=== PATIENT | female | born 1935 | race Caucasian/White ===

== ENCOUNTER 2020-05-23 12:47 | Emergency (ER) | payer MEDICARE, MEDICAID, SELFPAY ==
--- NOTE | 2020-05-23 | CT_ITS ---
EXAMINATION: CT ABDOMEN AND PELVIS WITH CONTRAST CLINICAL INFORMATION: Abdominal pain. Constipation. Nausea. COMPARISON: CT scan abdomen and pelvis 04/10/2019. TECHNIQUE: Multidetector volumetric images were obtained from the superior aspect of the liver through the pubic symphysis following administration 85 mL of Omnipaque 350 intravenous contrast. Sagittal and coronal reformatted images were obtained on the technologist's workstation. Oral contrast: No. This CT examination was performed using dose optimization techniques as appropriate, variously including the following: *Automated exposure control *Adjustment of mA and/or kV according to patient size (this includes techniques or standardized protocols for targeted exams where dose is matched to indication/reason for exam; i.e. extremities or head) *Use of iterative reconstruction technique DLP: 343 mGy-cm FINDINGS: LUNG BASES: The visualized lung bases are unremarkable. LIVER, GALLBLADDER, AND BILIARY TREE: There is a hepatic cyst in the dome of liver in segment 7 measuring 1.2 cm. This is unchanged since CAT scan 04/10/2019. Vague hypodense lesion in segment 6 right lobe of liver measuring 7 mm axial image 11 series 3. This has suggestion of focal nodular enhancement in the periphery possible hemangioma therefore. This is unchanged since CAT scan 04/10/2019. No suspicious liver lesions. There is no intrahepatic bile duct dilatation. The gallbladder is unremarkable with no evidence of radiopaque gallstones, gallbladder wall thickening, or obvious pericholecystic inflammatory changes. PANCREAS: Unremarkable. SPLEEN: The spleen is enlarged. The spleen measures 20 cm of length. 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 There is distention of the portal vein. ADRENAL GLANDS: Unremarkable. KIDNEYS AND URETERS: Exophytic cyst upper pole of left kidney measuring 3.8 cm. There are several additional small cysts in the cortex of both the right and left kidney. There is no acute abnormality. Normal enhancement of the cortex of both kidneys. No renal or ureteral calculus. No hydronephrosis. BLADDER: Unremarkable. GASTROINTESTINAL TRACT: There are scattered diverticula of the colon. There is no diverticulitis. There is no bowel wall thickening/edema. There is no bowel obstruction. There is a large volume of stool in the colon. The appendix is not visualized. There are surgical clips in the mesentery in the right lower quadrant. The small bowel loops are unremarkable. The stomach is normal. There is no hiatal hernia. ABDOMINAL WALL: No significant hernia is appreciated. LYMPH NODES: Normal. VASCULAR: There is enlargement of the portal vein. 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 No thrombus of the portal vein. Scattered vascular calcifications of the wall of aorta. There is no aneurysm. PELVIC VISCERA: The uterus is absent. There is no adnexal abnormality. OSSEOUS STRUCTURES: Multilevel degenerative spondylosis of the spine. IMPRESSION: 1. Splenomegaly. 2. 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 Enlargement of the portal vein but no thrombus of portal vein. 3. Stable cyst in the dome right lobe of liver segment 7. There is no additional hypodense lesion in right lobe possible hemangioma. 4. Large volume of stool in colon. No bowel obstruction. No acute change of the bowel.
--- NOTE | 2020-05-23 13:22 | ED.ABDPAIN ---
HPI - Abdominal Pain General Chief Complaint: General Medical <COURTNEY Orta Last Filed: 05/23/20 20:12> Stated Complaint: weak,stomach pain <COURTNEY Orta Last Filed: 05/23/20 20:12> Time Seen by Provider: 05/23/20 13:15 <COURTNEY Orta Last Filed: 05/23/20 20:12> Source: patient <COURTNEY Orta Last Filed: 05/23/20 20:12> Mode of arrival: ambulatory <COURTNEY Orta Last Filed: 05/23/20 20:12> Limitations: no limitations <COURTNEY Orta Last Filed: 05/23/20 20:12> History of Present Illness HPI narrative: 84-year-old female presenting ambulatory via triage with with history of essential thrombocytosis, polycythemia vera, cecal volvulus and underwent cencal resection, pancreatitis, anxiety disorder presenting with complaint of lower abdominal pain and lower back pain that has been going on for several days. States she initially developed the pain and discomfort for 5 days ago had slight chills with that so she went to clinic and had a negative COVID test 3 days ago however her symptoms persist of the lower abdominal pain with chills, bladder fullness with pressure and now having back pain with associated nausea in the lower back. States she does have his shoes with constipation intermittently and thought she was constipated so she take a OTC senna after which she had a small bowel movement 2 days ago. <COURTNEY Orta Last Filed: 05/23/20 20:12> MD elicited complaint: abdominal pain <COURTNEY Orta Last Filed: 05/23/20 20:12> Pertinent past history: constipation <COURTNEY Orta Last Filed: 05/23/20 20:12> Pain Consistency: constant <COURTNEY Orta Last Filed: 05/23/20 20:12> Location: suprapubic and other (lower back ) <COURTNEY Orta Last Filed: 05/23/20 20:12> Severity: moderate <COURTNEY Orta Last Filed: 05/23/20 20:12> Pain scale (0-10): 5 <COURTNEY Orta Last Filed: 05/23/20 20:12> Quality: aching <COURTNEY Orta Last Filed: 05/23/20 20:12> Radiation: back <COURTNEY Orta Last Filed: 05/23/20 20:12> Exacerbating factors: nothing <COURTNEY Orta Last Filed: 05/23/20 20:12> Relieving factors: nothing <COURTNEY Orta Last Filed: 05/23/20 20:12> Related Data Home Medications: Home Medications Medication Instructions Recorded Confirmed gabapentin 300 mg capsule 300 mg PO DAILY 05/23/20 hydroxyurea 500 mg capsule 500 mg PO DAILY 05/23/20 ibuprofen 800 mg tablet 800 mg PO TID PRN 05/23/20 linaclotide 145 mcg capsule 145 mcg PO DAILY 05/23/20 abilrh-pgqubwyt-pzabfcc 1 cap PO DAILY 05/23/20 3,000-9,500-15,000 unit capsule,delayed releas paroxetine HCl 10 mg tablet 20 mg PO QAM 05/23/20 sennosides 8.6 mg tablet 17.2 mg PO BEDTIME PRN 05/23/20 trazodone 50 mg tablet 50 mg PO BEDTIME 05/23/20 <COURTNEY Orta Last Filed: 05/23/20 20:12> Allergies/Adverse Reactions: Allergies Allergy/AdvReac Type Severity Reaction Status Date / Time No Known Allergies Allergy Unverified 05/03/20 15:06 <COURTNEY Orta Last Filed: 05/23/20 20:12> Review of Systems Review of Systems Constitutional: No Weight loss, No Fever, + Chills, No Night Sweats, No Fatigue, No Malaise ENT/Mouth: No Hearing loss, No Ear Pain, No Nasal Congestion, No Sinus Pain, No Hoarseness, No sore throat, No Rhinorrhea, No Swallowing Difficulty Eyes: No Eye Pain, No Swelling, No Redness, No Foreign Body, No Discharge, No Vision Changes Cardiovascular: No Chest Pain, No SOB, No Dyspnea on Exertion, No Orthopnea, No Edema, No Palpitations Respiratory: No Cough, No Sputum, No Wheezing, No Smoke Exposure, No Dyspnea Gastrointestinal: + Nausea, No Vomiting, No Diarrhea, + Constipation, + abdominal Pain, No Hematochezia, No Melena Genitourinary: no irregular bleeding, No Dysuria, Has chronic urinary incontinence, No Hematuria,no Urgency, No Flank Pain, No Urinary Flow Changes, No Hesitancy Musculoskeletal: No joint pain, No Myalgias, No Joint Swelling Skin: No Skin Lesions, No rash Neuro: No Weakness, No Numbness, No Paresthesias, No Loss of Consciousness, No Dizziness, No Headache Psych: No Anxiety/Panic, No Depression, No SI/HI/AH/VH, No Social Issues, Heme/Lymph: No Bruising, No Bleeding,No Lymphadenopathy Endocrine: No Polyuria, No Polydipsia, No Temperature Intolerance <Roni Sargent NP - Last Filed: 05/23/20 20:12> Yes all other systems are reviewed and are negative <Roni Sargent NP - Last Filed: 05/23/20 20:12> Physical Exam Vital Signs and I&O and Narrative: Vital Signs and I&O: Vital Signs Temp 99.4 F 05/23/20 13:35 Pulse 90 05/23/20 16:00 Resp 15 05/23/20 16:00 BP 147/65 H 05/23/20 16:00 Pulse Ox 96 05/23/20 16:00 Intake & Output 05/23/20 05/23/20 05/24/20 06:59 18:59 06:59 Intake Total 1000 / 1000 Balance 1000 / 1000 Weight 55.338 kg Intake: Intake, IV Amoun t 1000 / 1000 0.9 % Sodium C hloride 1,000 ml 1000 / 1000 @ 999 mls/hr I VCONT .Q1H1M COUNTS INCLUDE 234 BEDS AT THE [facility] Rx#:[id number] Body Mass Index 18.5 <Roni Sargent NP - Last Filed: 05/23/20 20:12> Vital Signs and I&O: Vital Signs Temp 99.4 F 05/23/20 13:35 Pulse 90 05/23/20 16:00 Resp 15 05/23/20 16:00 BP 147/65 H 05/23/20 16:00 Pulse Ox 96 05/23/20 16:00 Intake & Output 05/23/20 05/23/20 05/24/20 06:59 18:59 06:59 Intake Total 1000 / 1000 Balance 1000 / 1000 Weight 55.338 kg Intake: Intake, IV Amoun t 1000 / 1000 0.9 % Sodium C hloride 1,000 ml 1000 / 1000 @ 999 mls/hr I VCONT .Q1H1M COUNTS INCLUDE 234 BEDS AT THE [facility] Rx#:[id number] Body Mass Index 18.5 <Dheeraj Jacobs DO - Last Filed: 05/24/20 02:24> Const: General: cooperative and healthy appearing; No acute distress or intoxicated appearing <[facility] COURTNEY Sargent - Last Filed: 05/23/20 20:12> Nutritional Appearance: average body habitus <[facility] COURTNEY Sargent - Last Filed: 05/23/20 20:12> Orientation/consciousness: patient oriented x3 <[facility] Arie TIME STUDY ENGINEER - Last Filed: 05/23/20 20:12> HENMT: Head: Yes normal to inspection <[facility] COURTNEY Sargent - Last Filed: 05/23/20 20:12> Ears: hearing grossly normal bilaterally <[facility] COURTNEY Sargent - Last Filed: 05/23/20 20:12> Eyes: General: appearance normal, both eyes and all related structures <[facility] COURTNEY Sargent - Last Filed: 05/23/20 20:12> Visual Gonzáles: normal visual gonzáles by confrontation <[facility] COURTNEY Sargent - Last Filed: 05/23/20 20:12> Neck: Neck: Yes normal visual inspection, No positive Brudzinski's sign, No positive Kernig's sign and No tender <[facility] COURTNEY Sargent - Last Filed: 05/23/20 20:12> Thyroid: Thyroid normal <[facility] COURTNEY Sargent - Last Filed: 05/23/20 20:12> Chest: Chest palpation & inspection: normal inspection of the chest <[facility] COURTNEY Sargent - Last Filed: 05/23/20 20:12> Resp: Effort & Inspection: normal respiratory effort <[facility] COURTNEY Sargent - Last Filed: 05/23/20 20:12> Cardio: Jugular venous distension: no JVD <[facility] COURTNEY Sargent - Last Filed: 05/23/20 20:12> GI: Inspection: Yes normal to inspection <[facility] COURTNEY Sargent - Last Filed: 05/23/20 20:12> Percussion: Yes normal to percussion <Ronigarfield Sargent NP - Last Filed: 05/23/20 20:12> Auscultation: normal bowel sounds <Roni Sargent NP - Last Filed: 05/23/20 20:12> : General: Yes no CVA tenderness <Roni Sargent NP - Last Filed: 05/23/20 20:12> Back/Spine/Pelvis: Back: no CVA tenderness <Roni Sargent NP - Last Filed: 05/23/20 20:12> Skin: General skin exam: no rashes or lesions noted <Roni Sargent NP - Last Filed: 05/23/20 20:12> Neuro: General: patient oriented x3 <Roni Sargent NP - Last Filed: 05/23/20 20:12> Extrem: General: Yes normal to inspection <Roni Sargent NP - Last Filed: 05/23/20 20:12> Course Course Course Narrative: labs overall stable. CT findings consistent with constipation. No findings of obstruction. Requesting to be medicated here prior to going home will give her magnesium citrate 300 p.o. as well as Fleet enema. <Roni Sargent NP - Last Filed: 05/23/20 20:12> Reevaluation(s) Reevaluation #1: The nurse informed me the patient eloped prior to her discharge. <Roni Sargent NP - Last Filed: 05/23/20 20:12> MDM - Abdominal Pain Differential Diagnosis Differential diagnosis: Likely abdominal pain, constipation, diverticulitis and small bowel obstruction; Unlikely aortic dissection, acute appendicitis, bowel perforation, calculus of kidney, endometriosis, gastroenteritis, gastritis, mesenteric ischemia, ovarian cyst, pancreatitis, peptic ulcer disease and renal colic <Roni Sargent NP - Last Filed: 05/23/20 20:12> Medical Records Attestation: I reviewed the patient's medical records. <COURTNEY Orta Last Filed: 05/23/20 20:12> Lab Data Attestation: I reviewed the patient's lab results. <COURTNEY Orta Last Filed: 05/23/20 20:12> Result diagrams: : 05/23/20 14:16 05/23/20 14:16 <Roni Sargent NP - Last Filed: 05/23/20 20:12> Labs: Lab Results 05/23/20 05/23/20 05/23/20 Range/Units 14:16 14:16 14:16 WBC 23.0 H (4.8-10.8) X10*3/uL RBC 5.47 (4.20-5.50) X10*6/uL Hgb 13.0 (12.0-16.0) g/dl Hct 43.6 (37-47) % MCV 79.7 L (80-98) fL MCH 23.8 L (27.0-33.0) pg MCHC 29.8 L (31.0-35.0) g/dl RDW 19.9 H (11.0-16.0) % Plt Count 323 (160-400) X10*3/uL Immature Gran % (Auto) 0.9 H (0.0-0.4) % Neut % (Auto) 91.9 H (45-73) % Lymph % (Auto) 3.7 L (20-40) % Dane % (Auto) 2.0 (2-11) % Eos % (Auto) 0.6 (0-4) % Baso % (Auto) 0.9 (0-2) % Neut # (Auto) 21.2 H (2.0-8.3) X10*3/uL Lymph # (Auto) 0.9 L (1.2-4.9) X10*3/uL Dane # (Auto) 0.5 (0.1-1.2) X10*3/uL Eos # (Auto) 0.1 (0.0-0.4) X10*3/uL Baso # (Auto) 0.2 (0.0-0.2) X10*3/uL Abs Immat Gran (auto) 0.20 H (0.00-0.03) X10*3/uL Absolute Nucleated RBC 0.000 (0.0-0.012) X10*3/uL Nucleated RBC % (auto) 0.0 (0.0-0.2) /100WBC Smear Tech's Comments VERIFIED Sodium 138 (135-145) mmol/L Potassium 4.0 (3.3-5.1) mmol/l Chloride 101 (96-108) mmol/L Carbon Dioxide 30 H (22-29) mmol/L Anion Gap 11 L (12-20) BUN 16 (9-16) mg/dL Creatinine 0.66 (0.5-1.4) mg/dL Estim Creat Clear Calc 56.4 Estimated GFR > 60 Random Glucose 130 H (60-115) mg/dL Calcium 8.7 (8.4-10.2) mg/dL Total Bilirubin 0.6 (0.0-1.0) mg/dL Direct Bilirubin 0.3 (0.0-0.5) mg/dL AST 17 (5-31) U/L ALT 11 (0-31) U/L Alkaline Phosphatase 77 (39-117) U/L Total Protein 6.3 L (6.5-8.0) g/dL Albumin 4.0 (3.5-5.0) g/dL Lipase 19 (8-78) U/L Urine Color YELLOW Urine Appearance CLEAR Urine pH 6.0 (5.0-8.0) Ur Specific Simpson <= 1.005 (1.005-1.025) Urine Protein NEG (NEG-TRACE) MG/DL Urine Glucose (UA) NEG (NEG) MG/DL Urine Ketones NEG (NEG) MG/DL Urine Blood TRACE (NEG) Urine Nitrite NEG (NEG) Ur Leukocyte Esterase NEG (NEG) Urine RBC 0-2 (0) /HPF Urine WBC 0-2 (0-4) /HPF Ur Squamous Epith Cells TRACE /LPF Ur Renal Epithelial Cell TRACE /LPF Urine Bacteria NONE /LPF <Roni Sargent NP - Last Filed: 05/23/20 20:12> Lab Results 05/23/20 05/23/20 05/23/20 Range/Units 14:16 14:16 14:16 WBC 23.0 H (4.8-10.8) X10*3/uL RBC 5.47 (4.20-5.50) X10*6/uL Hgb 13.0 (12.0-16.0) g/dl Hct 43.6 (37-47) % MCV 79.7 L (80-98) fL MCH 23.8 L (27.0-33.0) pg MCHC 29.8 L (31.0-35.0) g/dl RDW 19.9 H (11.0-16.0) % Plt Count 323 (160-400) X10*3/uL Immature Gran % (Auto) 0.9 H (0.0-0.4) % Neut % (Auto) 91.9 H (45-73) % Lymph % (Auto) 3.7 L (20-40) % Dane % (Auto) 2.0 (2-11) % Eos % (Auto) 0.6 (0-4) % Baso % (Auto) 0.9 (0-2) % Neut # (Auto) 21.2 H (2.0-8.3) X10*3/uL Lymph # (Auto) 0.9 L (1.2-4.9) X10*3/uL Dane # (Auto) 0.5 (0.1-1.2) X10*3/uL Eos # (Auto) 0.1 (0.0-0.4) X10*3/uL Baso # (Auto) 0.2 (0.0-0.2) X10*3/uL Abs Immat Gran (auto) 0.20 H (0.00-0.03) X10*3/uL Absolute Nucleated RBC 0.000 (0.0-0.012) X10*3/uL Nucleated RBC % (auto) 0.0 (0.0-0.2) /100WBC Smear Tech's Comments VERIFIED Sodium 138 (135-145) mmol/L Potassium 4.0 (3.3-5.1) mmol/l Chloride 101 (96-108) mmol/L Carbon Dioxide 30 H (22-29) mmol/L Anion Gap 11 L (12-20) BUN 16 (9-16) mg/dL Creatinine 0.66 (0.5-1.4) mg/dL Estim Creat Clear Calc 56.4 Estimated GFR > 60 Random Glucose 130 H (60-115) mg/dL Calcium 8.7 (8.4-10.2) mg/dL Total Bilirubin 0.6 (0.0-1.0) mg/dL Direct Bilirubin 0.3 (0.0-0.5) mg/dL AST 17 (5-31) U/L ALT 11 (0-31) U/L Alkaline Phosphatase 77 (39-117) U/L Total Protein 6.3 L (6.5-8.0) g/dL Albumin 4.0 (3.5-5.0) g/dL Lipase 19 (8-78) U/L Urine Color YELLOW Urine Appearance CLEAR Urine pH 6.0 (5.0-8.0) Ur Specific Simpson <= 1.005 (1.005-1.025) Urine Protein NEG (NEG-TRACE) MG/DL Urine Glucose (UA) NEG (NEG) MG/DL Urine Ketones NEG (NEG) MG/DL Urine Blood TRACE (NEG) Urine Nitrite NEG (NEG) Ur Leukocyte Esterase NEG (NEG) Urine RBC 0-2 (0) /HPF Urine WBC 0-2 (0-4) /HPF Ur Squamous Epith Cells TRACE /LPF Ur Renal Epithelial Cell TRACE /LPF Urine Bacteria NONE /LPF <Dheeraj Jacobs DO - Last Filed: 05/24/20 02:24> Discharge Plan Discharge Clinical Impression: Abdominal pain Qualifiers: Abdominal location: lower abdomen, unspecified Qualified Code(s): R10.30 - Lower abdominal pain, unspecified Constipation Qualifiers: Constipation type: unspecified constipation type Qualified Code(s): K59.00 - Constipation, unspecified <Roni Sargent NP - Last Filed: 05/23/20 20:12> Patient Disposition: Home, Self-Care <Roni Sargent NP - Last Filed: 05/23/20 20:12> Instructions: Constipation (ED) <Roni Sargent NP - Last Filed: 05/23/20 20:12> Discharge Date/Time: 05/23/20 18:00 <Roni Sargent NP - Last Filed: 05/23/20 20:12> [facility] Past Medical History Attestation statement: The following information was validated with the patient. <Roni Sargent NP - Last Filed: 05/23/20 20:12> Social History Social History: Social History Alcohol intake: never Smoking Status: Never smoker Use of substances other than those prescribed or required for medical reasons: No Advance Directives: No Advance Directives Information Provided: Yes <Roni Sargent NP - Last Filed: 05/23/20 20:12>
[2020-05-23 13:35] VITALS: BP 139/70; PULSE 90; RESP 18; TEMP 37.4; BMI 18.5
[2020-05-23] MEDS: 0.9 % Sodium Chloride 1,000 ML 999 ML IVCONT (14:15)
[2020-05-23 14:22] VITALS: BP 131/79; PULSE 87; RESP 16; O2SAT 95
[2020-05-23 14:31] LABS: Basophils Percent Auto 0.9 % (0-2); Imm Gran Pct Auto 0.9 % (0.0-0.4); MANUAL DIFF FLAG SCAN; SCAN SMEAR FLAG 1
[2020-05-23 14:32] LABS: Basophils Absolute Auto 0.2 X10*3/uL (0.0-0.2); Eosinophils Absolute Auto 0.1 X10*3/uL (0.0-0.4); Eosinophils Percent Auto 0.6 % (0-4); Hematocrit 43.6 % (37-47); Lymphocytes Absolute Auto 0.9 X10*3/uL (1.2-4.9); Lymphocytes Percent Auto 3.7 % (20-40); Mean Corpuscular HGB Conc 29.8 g/dl (31.0-35.0); Mean Corpuscular Hemoglobin 23.8 pg (27.0-33.0); Mean Corpuscular Volume 79.7 fL (80-98); Monocytes Absolute Auto 0.5 X10*3/uL (0.1-1.2); Neutrophils Absolute Auto 21.2 X10*3/uL (2.0-8.3); Neutrophils Percent Auto 91.9 % (45-73); Platelet Count 323 X10*3/uL (160-400); Red Blood Count 5.47 X10*6/uL (4.20-5.50); Red Cell Distribution Width 19.9 % (11.0-16.0)
[2020-05-23 14:33] LABS: Glucose Urine UA NEG (NEG); Leukocyte Esterase Urine NEG (NEG); Nitrite Urine NEG (NEG); Specific Gravity - Urine <= 1.005 (1.005-1.025); Urine Blood TRACE (NEG); Urine Ketones NEG (NEG); Urine Protein NEG (NEG-TRACE)
[2020-05-23 14:34] LABS: Appearance Urine CLEAR; Color Urine YELLOW; PLT ABN DIST 1
[2020-05-23 14:55] LABS: RBC Urine 0-2 /HPF (0); Renal Epithelial Cells Urine TRACE /LPF; Squamous Epithelial Cell Urine TRACE /LPF; WBC Urine 0-2 /HPF (0-4)
[2020-05-23 14:57] LABS: SLIDE REVIEW VERIFIED
[2020-05-23 15:03] LABS: Alanine Aminotransferase 11 U/L (0-31); Alkaline Phosphatase 77 U/L (39-117); Anion Gap 11 (12-20); Aspartate Amino Transferase 17 U/L (5-31); Bilirubin Direct 0.3 mg/dL (0.0-0.5); Bilirubin Total 0.6 mg/dL (0.0-1.0); Blood Urea Nitrogen 16 mg/dL (9-16); Calcium 8.7 mg/dL (8.4-10.2); Carbon Dioxide 30 mmol/L (22-29); Chloride 101 mmol/L (96-108); Creatinine Clr Calc Pharmacy 56.4; Estimated Glomerular Filt Rate > 60; Glucose Random 130 mg/dL (60-115); Lipase 19 U/L (8-78); Sodium 138 mmol/L (135-145); Total Protein 6.3 g/dL (6.5-8.0)
[2020-05-23 16:00] VITALS: BP 147/65; PULSE 90; RESP 15; O2SAT 96
[2020-05-23] MEDS: Magnesium Citrate 300 ML SOLUTION PO (16:54)
[2020-05-23] MEDS: Mineral OiL enema 133 ML ENEMA PR (17:22)
--- NOTE | 2020-05-23 17:40 | PC.NURSE ---
PATIENT ANXIOUS FOR DISCHARGE. PATIENT PACING AND AWAITING HER D/C PAPERS
== END 2020-05-23 18:00 | disposition home or self-care (01) ==
PROVIDERS: Nurse Practitioner Primary Care; Emergency Provider Emergency Medicine; PCP Internal Medicine
DX: K59.00 Constipation, unspecified (principal); R10.30 Lower abdominal pain, unspecified
CPT/HCPCS: 36415; 74177; 80048; 80076; 81001; 83690; 85025; 96360; 99284

== ENCOUNTER 2020-06-25 08:06 | Outpatient (REF) | payer MEDICARE, MEDICAID, SELFPAY | END 2020-06-25 08:07 | disposition home or self-care (01) | LOC: HO.BBR 08:06 | PROVIDERS: PCP Hospitalist; Visit Provider Internal Medicine Medical Oncology | DX: D45 Polycythemia vera (principal) | CPT/HCPCS: 36415; 85018; 99195 ==

== ENCOUNTER 2020-09-11 09:27 | Outpatient (REF) | payer MEDICARE, MEDICAID, SELFPAY ==
[2020-09-11 10:16] LABS: Hematocrit 43.4 % (37-47); Hemoglobin 12.5 g/dl (12.0-16.0); Mean Corpuscular HGB Conc 28.8 g/dl (31.0-35.0); Mean Corpuscular Hemoglobin 23.8 pg (27.0-33.0); Mean Corpuscular Volume 82.7 fL (80-98); NRBC Pct Auto 0.1 /100WBC (0.0-0.2); Platelet Count 324 X10*3/uL (160-400); Red Blood Count 5.25 X10*6/uL (4.20-5.50); Red Cell Distribution Width 22.1 % (11.0-16.0); White Blood Count 19.6 X10*3/uL (4.8-10.8)
[2020-09-11 10:36] LABS: Alanine Aminotransferase 10 U/L (0-31); Albumin Level 4.1 g/dL (3.5-5.0); Alkaline Phosphatase 80 U/L (39-117); Anion Gap 13 (12-20); Aspartate Amino Transferase 19 U/L (5-31); Bilirubin Direct 0.3 mg/dL (0.0-0.5); Bilirubin Total 0.8 mg/dL (0.0-1.0); Blood Urea Nitrogen 15 mg/dL (9-16); Calcium 8.5 mg/dL (8.4-10.2); Carbon Dioxide 30 mmol/L (22-29); Chloride 101 mmol/L (96-108); Estimated Glomerular Filt Rate > 60; Glucose Random 79 mg/dL (60-115); Potassium 4.5 mmol/l (3.3-5.1); Sodium 139 mmol/L (135-145); Total Protein 6.4 g/dL (6.5-8.0)
[2020-09-11 10:57] LABS: Thyroid Stimulating Hormone 2.57 uIU/mL (0.32-4.0)
[2020-09-11 11:15] LABS: Folate 13.3 ng/mL (> or = 4.0); Vitamin B12 1484 pg/mL (200-900)
[2020-09-15 12:57] LABS: Vitamin D 25-OH, D2 <4 ng/mL; Vitamin D 25-OH, D3 39 ng/mL; Vitamin D 25-OH, Total 39 ng/mL (30-100)
== END 2020-09-11 09:28 | disposition home or self-care (01) ==
LOC: HO.LAB 09:27
PROVIDERS: PCP Internal Medicine; Visit Provider Internal Medicine
DX: D47.3 Essential (hemorrhagic) thrombocythemia (principal); R32 Unspecified urinary incontinence; J21.9 Acute bronchiolitis, unspecified
CPT/HCPCS: 36415; 80048; 80076; 82306; 82607; 82746; 84443; 85027

== ENCOUNTER 2020-09-17 07:50 | Outpatient (REF) | payer MEDICARE, MEDICAID, SELFPAY | END 2020-09-17 07:51 | disposition home or self-care (01) | LOC: HO.BBR 07:50 | PROVIDERS: Visit Provider Internal Medicine Medical Oncology | DX: D45 Polycythemia vera (principal) | CPT/HCPCS: 36415; 85018 ==

== ENCOUNTER → 2020-10-08 07:51 | Outpatient (BNV) | payer MEDICARE, MEDICAID, SELFPAY | PROVIDERS: PCP Internal Medicine; Visit Provider Internal Medicine Medical Oncology | DX: D47.3 Essential (hemorrhagic) thrombocythemia (principal) | CPT/HCPCS: 99213; 99214 ==

== ENCOUNTER 2020-12-17 08:18 | Outpatient (REF) | payer MEDICARE, MEDICAID, SELFPAY | END 2020-12-17 08:19 | disposition home or self-care (01) | LOC: HO.BBR 08:18 | PROVIDERS: Visit Provider Internal Medicine Medical Oncology | DX: D45 Polycythemia vera (principal) | CPT/HCPCS: 85014; 85018; 99195 ==

== ENCOUNTER 2021-03-19 08:02 | Outpatient (REF) | payer MEDICARE, MEDICAID, SELFPAY | END 2021-03-19 08:03 | disposition home or self-care (01) | LOC: HO.BBR 08:02 | PROVIDERS: PCP Internal Medicine; Visit Provider Internal Medicine Medical Oncology | DX: D45 Polycythemia vera (principal) | CPT/HCPCS: 85014; 85018; 99195 ==

== ENCOUNTER 2021-06-05 02:04 | Emergency (ER) | payer MEDICARE, MEDICAID, SELFPAY ==
[2021-06-05 02:18] VITALS: BP 152/48; PULSE 89; RESP 16; TEMP 36.4; O2SAT 96; BMI 18.2
--- NOTE | 2021-06-05 02:38 | ED_ITS ---
HPI - Female Genitourinary General Chief complaint: Urogenital-Female Stated complaint: UTI Time Seen by Provider: 06/05/21 02:32 Source: patient Mode of arrival: ambulatory Limitations: no limitations History of Present Illness HPI Narrative: Patient comes emergency room complaining of dysuria. Patient states this started approximately 5 days ago. Patient has history of chronic weakness, however over the last 5 days, the weakness has gradually been getting worse. Patient lives at home with her grandson. Patient complaining chronic lower back pain, no new pain, no flank pain, no fever or chills. Related Data Home Medications Medication Instructions Recorded Confirmed hydroxyurea 500 mg capsule 500 mg PO DAILY 05/23/20 05/14/21 Previous Rx's Medication Instructions Recorded hydrocortisone 2.5 % topical cream 1 appl TOPICAL BID PRN #20 g 09/11/20 trazodone 50 mg tablet 50 mg PO BEDTIME PRN #90 tab 12/06/20 paroxetine HCl 10 mg tablet 20 mg PO QAM #180 tab 03/07/21 hydroxyurea 500 mg capsule (Hydrea) 500 mg PO BID #120 cap 05/14/21 hydroxyurea 500 mg capsule (Hydrea) 500 mg PO BID #180 cap 05/14/21 cefuroxime axetil 250 mg tablet 250 mg PO BID #13 tab 06/05/21 Allergies Allergy/AdvReac Type Severity Reaction Status Date / Time No Known Allergies Allergy Verified 05/14/21 08:45 Review of Systems Review of Systems: Constitutional : No Weight loss, No Fever, No Chills, No Night Sweats, No Fatigue, No Malaise ENT/Mouth : No Hearing loss, No Ear Pain, No Nasal Congestion, No Sinus Pain, No Hoarseness, No sore throat, No Rhinorrhea, No Swallowing Difficulty Eyes: No Eye Pain, No Swelling, No Redness, No Foreign Body, No Discharge, No Vision Changes Cardiovascular : No Chest Pain, No SOB, No Dyspnea on Exertion, No Orthopnea, No Edema, No Palpitations Respiratory : No Cough, No Sputum, No Wheezing, No Smoke Exposure, No Dyspnea Gastrointestinal : No Nausea, No Vomiting, No Diarrhea, No Constipation, No abdominal Pain, No Hematochezia, No Melena Genitourinary complaining of Dysuria, complaining of Urinary Frequency, No Hematuria, Chronic Urinary Incontinence, No Urgency, No Flank Pain, No Urinary Flow Changes, No Hesitancy Musculoskeletal : No joint pain, No Myalgias, No Joint Swelling Skin : No Skin Lesions, No rash Neuro : No Weakness, No Numbness, No Paresthesias, No Loss of Consciousness, No Dizziness, No Headache Psych : No Anxiety/Panic, No Depression, No SI/HI/AH/VH, No Social Issues, Heme/Lymph: No Bruising, No Bleeding,No Lymphadenopathy Endocrine : No Polyuria, No Polydipsia, No Temperature Intolerance [facility] Past Medical History Medical History 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 Mother No problems noted. Son Addiction to drug Social History Social History (Updated 05/14/21 @ 08:45 by Amanda Zhong) Alcohol intake: never Patient Tobacco Use Status: Never used Tobacco Use of substances other than those prescribed or required for medical reasons: No Advance Directives: No Advance Directives Information Provided: No Physical Exam 2 Vital Signs: Vital Signs: Last Vital Signs Temp 98.0 F 06/05/21 03:36 Pulse 81 06/05/21 03:36 Resp 18 06/05/21 03:36 BP 126/64 06/05/21 03:36 Pulse Ox 98 06/05/21 03:36 Body Mass Index 18.2 Const: Other: Appearance: Alert. Oriented X3. No acute distress. Eyes: Pupils equal, round and reactive to light. ENT: Pharynx normal. Neck: Normal inspection. Neck supple. No lymph nodes noted. No crepitus CVS: Normal heart rate and rhythm. Pulses normal. Normal S1 and S2 Respiratory: No respiratory distress. Breath sounds normal. No Wheezing. No rales Abdomen: Soft and nontender. No rigidity. No distention. Back: No pain to palpation over thoracic/lumbar spine, no paraspinal muscle pain tenderness, no flank pain/CVA tenderness Skin: Skin warm and dry. Normal skin color. Normal skin turgor. Extremities: No lower extremity edema. No lower extremity edema. No Lacerations. No Rash Neuro: Oriented X 3. No motor deficit. No sensory deficit. Moving all extermities. No slurred speech. Course Course Course Narrative: Patient has a positive UTI. Patient was given 1 g of IM ceftriaxone. I discussed with the patient that if she is weak, she should likely be staying in the hospital for treatment for asymptomatic UTI. Patient declined, patient states she feels strong enough to go home. She will be staying with her grandson. Patient's white blood cell count is chronically elevated, sees Dr. Durham. Lactic acid within normal limits, blood pressure normal, no fever, no flank pain, pyelonephritis not suspected, sepsis no suspected MDM - Female Genitourinary Lab Data Result diagrams: 06/05/21 03:00 06/05/21 03:00 Labs: Lab Results 06/05/21 06/05/21 06/05/21 Range/Units 03:00 03:00 03:00 WBC 18.8 H (4.8-10.8) X10*3/uL RBC 5.16 (4.20-5.50) X10*6/uL Hgb 12.6 (12.0-16.0) g/dl Hct 41.1 (37-47) % MCV 79.7 L (80-98) fL MCH 24.4 L (27.0-33.0) pg MCHC 30.7 L (31.0-35.0) g/dl RDW 21.7 H (11.0-16.0) % Plt Count 148 L D (160-400) X10*3/uL MPV Not Reportable Immature Gran % (Auto) 4.6 H (0.0-0.4) % Neut % (Auto) 86.3 H (45-73) % Lymph % (Auto) 4.4 L (20-40) % [place] % (Auto) 2.3 (2-11) % Eos % (Auto) 1.3 (0-4) % Baso % (Auto) 1.1 (0-2) % Lymph # (Auto) 0.8 L (1.2-4.9) X10*3/uL [place] # (Auto) 0.4 (0.1-1.2) X10*3/uL Eos # (Auto) 0.3 (0.0-0.4) X10*3/uL Baso # (Auto) 0.2 (0.0-0.2) X10*3/uL Abs Immat Gran (auto) 0.86 H (0.00-0.03) X10*3/uL Absolute Neuts (auto) 16.2 H (2.0-8.3) X10*3/uL Absolute Nucleated RBC 0.030 H (0.0-0.012) X10*3/uL Nucleated RBC % (auto) 0.2 (0.0-0.2) /100WBC Smear Tech's Comments VERIFIED Sodium 139 (135-145) mmol/L Potassium 4.2 (3.3-5.1) mmol/L Chloride 106 (96-108) mmol/L Carbon Dioxide 27 (22-29) mmol/L Anion Gap 10 L (12-20) BUN 15 (9-16) mg/dL Creatinine 0.64 (0.5-1.4) mg/dL Estim Creat Clear Calc 56.2 Estimated GFR > 60 Random Glucose 86 (60-115) mg/dL Lactic Acid 1.3 (0.5-2.0) mmol/L Calcium 8.6 (8.4-10.2) mg/dL Total Bilirubin 0.7 (0.0-1.0) mg/dL Direct Bilirubin 0.3 (0.0-0.5) mg/dL AST 16 (5-31) U/L ALT 8 (0-31) U/L Alkaline Phosphatase 72 D (39-117) U/L Total Protein 5.9 L (6.5-8.0) g/dL Albumin 3.6 (3.5-5.0) g/dL Urine Color Urine Appearance Urine pH (5.0-8.0) Ur Specific [place] (1.005-1.025) Urine Protein (NEG-TRACE) MG/DL Urine Glucose (UA) (NEG) MG/DL Urine Ketones (NEG) MG/DL Urine Blood (NEG) Urine Nitrite (NEG) Ur Leukocyte Esterase (NEG) Urine RBC (0) /HPF Urine WBC (0-4) /HPF Ur Squamous Epith Cells /LPF Urine Bacteria /LPF Urine Mucus /LPF 06/05/21 Range/Units 03:40 WBC (4.8-10.8) X10*3/uL RBC (4.20-5.50) X10*6/uL Hgb (12.0-16.0) g/dl Hct (37-47) % MCV (80-98) fL MCH (27.0-33.0) pg MCHC (31.0-35.0) g/dl RDW (11.0-16.0) % Plt Count (160-400) X10*3/uL MPV Immature Gran % (Auto) (0.0-0.4) % Neut % (Auto) (45-73) % Lymph % (Auto) (20-40) % [place] % (Auto) (2-11) % Eos % (Auto) (0-4) % Baso % (Auto) (0-2) % Lymph # (Auto) (1.2-4.9) X10*3/uL [place] # (Auto) (0.1-1.2) X10*3/uL Eos # (Auto) (0.0-0.4) X10*3/uL Baso # (Auto) (0.0-0.2) X10*3/uL Abs Immat Gran (auto) (0.00-0.03) X10*3/uL Absolute Neuts (auto) (2.0-8.3) X10*3/uL Absolute Nucleated RBC (0.0-0.012) X10*3/uL Nucleated RBC % (auto) (0.0-0.2) /100WBC Smear Tech's Comments Sodium (135-145) mmol/L Potassium (3.3-5.1) mmol/L Chloride (96-108) mmol/L Carbon Dioxide (22-29) mmol/L Anion Gap (12-20) BUN (9-16) mg/dL Creatinine (0.5-1.4) mg/dL Estim Creat Clear Calc Estimated GFR Random Glucose (60-115) mg/dL Lactic Acid (0.5-2.0) mmol/L Calcium (8.4-10.2) mg/dL Total Bilirubin (0.0-1.0) mg/dL Direct Bilirubin (0.0-0.5) mg/dL AST (5-31) U/L ALT (0-31) U/L Alkaline Phosphatase (39-117) U/L Total Protein (6.5-8.0) g/dL Albumin (3.5-5.0) g/dL Urine Color YELLOW Urine Appearance HAZY Urine pH 6.0 (5.0-8.0) Ur Specific [place] 1.025 (1.005-1.025) Urine Protein TRACE (NEG-TRACE) MG/DL Urine Glucose (UA) NEG (NEG) MG/DL Urine Ketones NEG (NEG) MG/DL Urine Blood TRACE (NEG) Urine Nitrite POS H (NEG) Ur Leukocyte Esterase 3+ H (NEG) Urine RBC 5-9 H (0) /HPF Urine WBC 50-75 H (0-4) /HPF Ur Squamous Epith Cells 1+ /LPF Urine Bacteria 3+ /LPF Urine Mucus 2+ /LPF Discharge Plan Discharge Clinical Impression: Acute UTI Patient Disposition: Home, Self-Care Instructions: Urinary Tract Infection in Older Adults (ED) Additional Instructions: Please follow-up with your primary care physician tomorrow. If you have any worsening or new symptoms, please return to the emergency room or call 911 Prescriptions: New cefuroxime axetil 250 mg tablet 250 mg PO BID Qty: 13 RF: 0 No Action trazodone 50 mg tablet 50 mg PO BEDTIME PRN (Reason: Sleep) Qty: 90 RF: 1 paroxetine HCl 10 mg tablet 20 mg PO QAM Qty: 180 RF: 0 hydroxyurea [Hydrea] 500 mg Capsule 500 mg PO BID Qty: 180 RF: 4 hydroxyurea [Hydrea] 500 mg Capsule 500 mg PO BID Qty: 120 RF: 4 hydroxyurea 500 mg capsule 500 mg PO DAILY RF: 0 hydrocortisone 2.5 % cream 1 appl topical BID PRN (Reason: skin irritation) Qty: 20 RF: 0
--- NOTE | 2021-06-05 02:45 | PC.NURSE ---
pt complaining of lower abd and flank pain. Also report pain during urination. pt a&O, no sob or chest pain.
[2021-06-05 03:12] LABS: Hematocrit 41.1 % (37-47); Hemoglobin 12.6 g/dl (12.0-16.0); MANUAL DIFF FLAG SCAN; Mean Corpuscular HGB Conc 30.7 g/dl (31.0-35.0); Mean Corpuscular Hemoglobin 24.4 pg (27.0-33.0); Mean Corpuscular Volume 79.7 fL (80-98); Red Blood Count 5.16 X10*6/uL (4.20-5.50); SCAN SMEAR FLAG 1
[2021-06-05 03:14] LABS: Basophils Absolute Auto 0.2 X10*3/uL (0.0-0.2); Basophils Percent Auto 1.1 % (0-2); Eosinophils Absolute Auto 0.3 X10*3/uL (0.0-0.4); Eosinophils Percent Auto 1.3 % (0-4); Imm Gran Abs Auto 0.86 X10*3/uL (0.00-0.03); Imm Gran Pct Auto 4.6 % (0.0-0.4); Lymphocytes Absolute Auto 0.8 X10*3/uL (1.2-4.9); Lymphocytes Percent Auto 4.4 % (20-40); Monocytes Absolute Auto 0.4 X10*3/uL (0.1-1.2); Monocytes Percent Auto 2.3 % (2-11); NRBC Pct Auto 0.2 /100WBC (0.0-0.2); Neutrophils Absolute Auto 16.2 X10*3/uL (2.0-8.3); Neutrophils Percent Auto 86.3 % (45-73); Platelet Count 148 X10*3/uL (160-400); Red Cell Distribution Width 21.7 % (11.0-16.0); White Blood Count 18.8 X10*3/uL (4.8-10.8)
[2021-06-05 03:19] LABS: Lactic Acid 1.3 mmol/L (0.5-2.0)
[2021-06-05 03:29] LABS: Alanine Aminotransferase 8 U/L (0-31); Albumin Level 3.6 g/dL (3.5-5.0); Alkaline Phosphatase 72 U/L (39-117); Anion Gap 10 (12-20); Aspartate Amino Transferase 16 U/L (5-31); Bilirubin Direct 0.3 mg/dL (0.0-0.5); Bilirubin Total 0.7 mg/dL (0.0-1.0); Blood Urea Nitrogen 15 mg/dL (9-16); Calcium 8.6 mg/dL (8.4-10.2); Carbon Dioxide 27 mmol/L (22-29); Chloride 106 mmol/L (96-108); Creatinine Clr Calc Pharmacy 56.2; Estimated Glomerular Filt Rate > 60; Glucose Random 86 mg/dL (60-115); Potassium 4.2 mmol/L (3.3-5.1); Sodium 139 mmol/L (135-145); Total Protein 5.9 g/dL (6.5-8.0)
[2021-06-05 03:36] VITALS: BP 126/64; PULSE 81; RESP 18; TEMP 36.7; O2SAT 98
[2021-06-05 03:44] LABS: Appearance Urine HAZY; Color Urine YELLOW; Glucose Urine UA NEG (NEG); Leukocyte Esterase Urine 3+ (NEG); Nitrite Urine POS (NEG); Specific Gravity - Urine 1.025 (1.005-1.025); UACC Culture Trigger YES; Urine Blood TRACE (NEG); Urine Ketones NEG (NEG); Urine Protein TRACE MG/DL (NEG-TRACE)
--- NOTE | 2021-06-05 03:45 | PC.NURSE ---
PT AMBULATED TO BATHROOM WITH ONE ASSIST. URINE SAMPLE SENT TO LAB, VITALS DONE.
[2021-06-05 03:50] LABS: PLT ABN DIST 1; SLIDE REVIEW VERIFIED
[2021-06-05 03:54] LABS: Bacteria Urine 3+ /LPF; Mucus Urine 2+ /LPF; Squamous Epithelial Cell Urine 1+ /LPF; WBC Urine 50-75 /HPF (0-4)
[2021-06-05] MEDS: cefTRIAXone sodium 1 GM, Lidocaine HCl 1 % MPF 2.1 ML IM (04:43)
[2021-06-05 04:53] VITALS: BP 143/66; PULSE 87; RESP 16; O2SAT 97
== END 2021-06-05 04:59 | disposition home or self-care (01) ==
PROVIDERS: Emergency Provider Emergency Medicine; PCP Internal Medicine
DX: N39.0 Urinary tract infection, site not specified (principal)
CPT/HCPCS: 36415; 80048; 80076; 81001; 83605; 85025; 87040; 87086; 87088; 87186; 96372; 99284; J0696

== ENCOUNTER 2021-06-19 08:02 | Outpatient (REF) | payer MEDICARE, MEDICAID, SELFPAY | END 2021-06-19 08:03 | disposition home or self-care (01) | LOC: HO.BBR 08:02 | PROVIDERS: PCP Internal Medicine; Visit Provider Internal Medicine Medical Oncology | DX: D45 Polycythemia vera (principal) | CPT/HCPCS: 85014; 85018; 99195 ==

== ENCOUNTER 2021-09-19 08:03 | Outpatient (REF) | payer MEDICARE, MEDICAID, SELFPAY | END 2021-09-19 08:04 | disposition home or self-care (01) | LOC: HO.BBR 08:03 | PROVIDERS: Visit Provider Internal Medicine Medical Oncology | DX: D45 Polycythemia vera (principal) | CPT/HCPCS: 85014; 85018; 99195 ==

== ENCOUNTER 2022-01-02 08:56 | Outpatient (REF) | payer MEDICARE, MEDICAID, SELFPAY | END 2022-01-02 08:57 | disposition home or self-care (01) | LOC: HO.BBR 08:56 | PROVIDERS: Visit Provider Internal Medicine Medical Oncology | DX: D75.1 Secondary polycythemia (principal) | CPT/HCPCS: 85018; 99195 ==

== ENCOUNTER 2022-04-04 07:58 | Outpatient (REF) | payer MEDICARE, MEDICAID, SELFPAY | END 2022-04-04 07:59 | disposition home or self-care (01) | LOC: HO.BBR 07:58 | PROVIDERS: Visit Provider Internal Medicine Medical Oncology | DX: D75.1 Secondary polycythemia (principal) | CPT/HCPCS: 85014; 85018; 99195 ==

== ENCOUNTER 2022-04-08 09:35 | Emergency (ER) | payer MEDICARE, MEDICAID, SELFPAY ==
--- NOTE | ~2022-04-08 | CT_ITS ---
EXAMINATION: CT CERVICAL SPINE WITHOUT CONTRAST CLINICAL INFORMATION: Pain in weakness left arm. COMPARISON: None. TECHNIQUE: 3 mm thin axial and reformatted 2 mm thin sagittal and coronal images of cervical spine were obtained without contrast This CT examination was performed using dose optimization techniques as appropriate, variously including the following: *Automated exposure control *Adjustment of mA and/or kV according to patient size (this includes techniques or standardized protocols for targeted exams where dose is matched to indication/reason for exam; i.e. extremities or head) *Use of iterative reconstruction technique DLP: 259 mGy-cm FINDINGS: On sagittal reconstructed images there is mild straightening of cervical lordosis. There is grade 1 anterolisthesis C3 over C4. Rest of the vertebral alignment is normal. There is loss of C3-C4, C4-C5 and C6-C7 disc heights with mild ventral spondylosis. The craniovertebral junction and the C1-C2 alignment is normal. No visible acute fracture, dislocation or subluxation seen. There is no visible acute fracture, dislocation or subluxation seen. There is mucoperiosteal thickening left sphenoid sinus. Visualized rest of the paranasal sinuses and mastoid air cells are well-aerated. The TM joints are symmetrical and normal. Prevertebral and paravertebral soft tissues are normal. CT/CT cervical spine wo con IMPRESSION: No acute fracture, dislocation or subluxation. Degenerative disc changes and spondylosis as described above. Fleischner guidelines were followed.
[2022-04-08 09:40] VITALS: BP 132/71; PULSE 98; RESP 18; TEMP 37; O2SAT 96; BMI 18.2
--- NOTE | 2022-04-08 09:56 | ED_ITS ---
HPI - Extremity Problem General Chief complaint: Extremity Injury, Upper Stated complaint: R arm weakness/pain radiating to neck Time Seen by Provider: 04/08/22 09:52 Source: patient Mode of arrival: ambulatory History of Present Illness HPI Narrative: 86-year-old female with a past medical history of constipation, essential thrombocytosis, insomnia, urinary incontinence, presenting to the ED complaining right arm pain and weakness worsening over the past 2 months. States pain radiates up to right side of neck described as feeling tight. Denies injury, trauma, fall, numbness, tingling, headache, lightheadedness/dizziness, vision c hanges. Denies taking anticoagulation. MD Complaint: extremity pain Onset (ago): month(s) Pain Consistency: constant Location: right Related Data Home Medications Medication Instructions Recorded Confirmed hydroxyurea 500 mg capsule 500 mg PO DAILY 05/23/20 11/05/21 Previous Rx's Medication Instructions Recorded paroxetine HCl 10 mg tablet 20 mg PO QAM #180 tabs 06/10/21 trazodone 50 mg tablet 50 mg PO BEDTIME PRN for insomnia 06/10/21 #90 tabs acetaminophen 500 mg tablet 500 mg PO Q6H PRN fever or pain 04/08/22 (Tylenol Extra Strength) #14 tabs cyclobenzaprine 5 mg tablet 5 mg PO Q8H PRN pain (scale score 04/08/22 7-10) 5 days #14 tabs lidocaine 5 % topical patch 1 patch topical DAILY PRN pain #30 04/08/22 (Lidoderm) ea naproxen 500 mg tablet 500 mg PO BID PRN pain 10 days #20 04/08/22 tabs Allergies Allergy/AdvReac Type Severity Reaction Status Date / Time No Known Allergies Allergy Verified 11/05/21 09:36 Review of Systems Review of Systems: Constitutional: No Fever, No Chills, No Fatigue, No Malaise ENT/Mouth: No Ear Pain, No Nasal Congestion, No Sinus Pain, No sore throat, No Rhinorrhea, No Swallowing Difficulty Eyes: No Eye Pain, No Swelling, No Redness, No Vision Changes Cardiovascular: No Chest Pain, No SOB, No Edema, No Palpitations Respiratory: No Cough, No Sputum, No Dyspnea Gastrointestinal: No Nausea, No Vomiting, No Abdominal pain Genitourinary: No irregular bleeding, No Dysuria, No Urinary Frequency, No Hematuria, Chronic Urinary Incontinence Musculoskeletal: No joint pain, No Myalgias, No Joint Swelling Skin: No Skin Lesions, No rash Neuro: + Weakness, No Numbness, No Paresthesias, No Dizziness, No Headache Yes all other systems are reviewed and are negative Constitutional: Constitutional: Reports as per HPI Neurologic: Denies Sensory deficit (Neuro) [facility] Past Medical History Attestation statement: The following information was validated with the patient. 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 Mother No problems noted. Son Addiction to drug Social History Social History (Updated 11/05/21 @ 09:36 by Yesi Conte [facility]) Household Members: Family Housing: House Are you a primary care information associate to a significant other at home: No Do you presently have visiting nurse or other home services: No Alcohol intake: never Patient Tobacco Use Status: Never used Tobacco e-Cigarette/Vaping Use: Never Used Second Hand Smoke Exposure: No Advance Directives: No Advance Directives Information Provided: Yes service: No Current occupational status: retired Cognitive needs: No Hearing needs: No Vision needs: No Physical Exam Vital Signs: Vital Signs: Last Vital Signs Temp 98.6 F 04/08/22 09:40 Pulse 98 04/08/22 09:40 Resp 16 04/08/22 11:19 BP 125/59 L 04/08/22 11:19 Pulse Ox 97 04/08/22 11:19 O2 Del Method 04/08/22 11:19 BMI result Body Mass Index 18.2 Const: General: cooperative, healthy appearing and no acute distress Orientation/consciousness: patient oriented x3 Limitations: no limitations HEENT: Head: Yes normal to inspection and Yes atraumatic Ears: hearing grossly normal bilaterally General nose exam: Normal external nose present Face and sinus: Yes normal facial exam Throat: Yes posterior oropharynx normal, Yes tonsils normal and Yes uvula midline Eyes: General: appearance normal, both eyes and all related structures Pupils: Equal, round and reactive pupils present EOM: EOMs intact bilaterally Neck: Other: No midline cervical spinous tenderness/step-off or deformity. Right-sided paraspinal/trapezius muscle tenderness Neck: Yes normal visual inspection, Yes full ROM and Yes no meningeal signs Resp: Effort & Inspection: normal respiratory effort and no respiratory distress Auscultation: clear to auscultation bilaterally Cardio: Rate: regular rate Heart sounds: S1 normal heart sound present and S2 normal heart sound present Peripheral pulses: Peripheral pulses 2+ throughout GI: Inspection: Yes normal to inspection Palpation (GI): Soft to palpation, nontender, no guarding and not rigid : General: Yes no CVA tenderness Back/Spine/Pelvis: Back: no CVA tenderness Skin: Rashes: no rashes Wounds: no wounds Neuro: General: patient oriented x3, tone normal, no meningeal signs and CN's II-XI intact bilaterally Cranial nerves: Yes CN's II-XII intact bilaterally and Yes Equal, round and reactive pupils present Cognition (Neuro): normal cognition Gait exam (Neuro): Normal gait present Motor exam (neuro): 5/5 motor strength present throughout and no tremor noted Sensory Exam: No Sensory deficit (Neuro) Extrem: General: Yes normal to inspection Course Course Course Narrative: CT cervical spine wo con IMPRESSION: No acute fracture, dislocation or subluxation. ? Degenerative disc changes and spondylosis as described above. ? Fleischner guidelines were followed. Results discussed with patient including worrisome signs and symptoms and strict return precautions, and when to return to the emergency department. They verbalized understanding and feel safe for discharge at this time. MDM - Extremity (Nontraumatic) MDM Narrative Medical decision making narrative: 86-year-old female with a past medical history of constipation, essential thrombocytosis, insomnia, urinary incontinence, presenting to the ED complaining right arm pain and weakness worsening over the past 2 months. On exam vital signs stable, NAD, nontoxic appearing, physical exam as above, no midline spinous tenderness throughout, no appreciable weakness/strength intact throughout. Neurovascularly intact. Concern for cervical radiculopathy vs MSK pain/strain. Low suspicion for CVA/TIA or cervical dissection Plan: Cervical spine CT Medical Records Attestation: I reviewed the patient's medical records. Lab Data Attestation: I reviewed the patient's lab results. Discharge Plan Discharge Clinical Impression: Neck pain Patient Disposition: Home, Self-Care Instructions: Neck Pain (ED) Additional Instructions: Your CT shows some degenerative changes, no fracture Your pain is likely musculoskeletal Flexeril is a muscle relaxer, take at night as it makes you drowsy, do not drive, drink alcohol, or operate machinery while taking it Naproxen as an anti-inflammatory / pain medication, take with food Lidoderm patches are numbing patches, apply to painful area In addition take Tylenol at home If symptoms persist or worsen, pain becomes unbearable, you developed urinary retention or incontinence, or weakness return to the ED Prescriptions: New lidocaine [Lidoderm] 5 % adhesive patch,medicated 1 patch topical DAILY MDD remove after 12 hours PRN (Reason: pain) Qty: 30 0RF Rx Instructions: leave on most painful area for up to 12 hrs acetaminophen [Tylenol Extra Strength] 500 mg tablet 500 mg PO Q6H PRN (Reason: fever or pain) Qty: 14 0RF naproxen 500 mg tablet 500 mg PO BID PRN (Reason: pain) 10 Days Qty: 20 0RF cyclobenzaprine 5 mg tablet 5 mg PO Q8H PRN (Reason: pain (scale score 7-10)) 5 Days Qty: 14 0RF No Action paroxetine HCl 10 mg tablet 20 mg PO QAM Qty: 180 0RF trazodone 50 mg tablet 50 mg PO BEDTIME PRN (Reason: for insomnia) Qty: 90 1RF hydroxyurea 500 mg capsule 500 mg PO DAILY Referrals: Jostin Sanders MD [Primary Care Provider] -
[2022-04-08 11:19] VITALS: BP 125/59; RESP 16; O2SAT 97
[2022-04-08] MEDS: Cyclobenzaprine HCl 5 MG TABLET PO (12:08)
[2022-04-08] MEDS: Lidocaine 4 % Patch ADH..PATCH 1 PATCH TRANSDERMA (12:08)
== END 2022-04-08 12:13 | disposition home or self-care (01) ==
PROVIDERS: Emergency Provider Emergency Medicine; PCP Internal Medicine
DX: M54.2 Cervicalgia (principal); Z79.899 Other long term (current) drug therapy
CPT/HCPCS: 72125; 99284

== ENCOUNTER 2022-04-11 07:57 | Emergency (ER) | payer MEDICARE, MEDICAID, SELFPAY ==
[2022-04-11 08:56] VITALS: BP 143/63; PULSE 102; RESP 16; TEMP 36.5; O2SAT 97; BMI 18.3
--- NOTE | 2022-04-11 09:12 | ED_ITS ---
HPI - Female Genitourinary General Chief complaint: Urogenital-Female Stated complaint: UTI Time Seen by Provider: 04/11/22 09:04 Source: patient Mode of arrival: ambulatory Limitations: no limitations History of Present Illness HPI Narrative: 86 yo female presents to the ER for evaluation of increased urinary frequency and dysuria that started when she woke up today. She feels like she has a UTI. She has had UTIs before and this feels similar. She denies any blood in her urine, nausea, vomiting, abdominal pain. No fever or chills. No vaginal discharge or bleeding. MD elicited complaint: UTI Pertinent past history: recurrent UTIs Onset (ago): hour(s) Location of symptoms: urethra Severity: moderate Female Urogenital Radiation: Non-Radiating Quality of pain: burning Consistency: intermittent Vaginal discharge: none Vaginal bleeding: none Urinary symptoms: Dysuria, Urgency and Frequency Exacerbating factors: urination Relieving factors: none Associated symptoms: denies other symptoms Treatment prior to arrival: none Sexual activity: No Related Data Home Medications Medication Instructions Recorded Confirmed hydroxyurea 500 mg capsule 500 mg PO DAILY 05/23/20 11/05/21 Previous Rx's Medication Instructions Recorded paroxetine HCl 10 mg tablet 20 mg PO QAM #180 tabs 06/10/21 trazodone 50 mg tablet 50 mg PO BEDTIME PRN for insomnia 06/10/21 #90 tabs acetaminophen 500 mg tablet 500 mg PO Q6H PRN fever or pain 04/08/22 (Tylenol Extra Strength) #14 tabs cyclobenzaprine 5 mg tablet 5 mg PO Q8H PRN pain (scale score 04/08/22 7-10) 5 days #14 tabs lidocaine 5 % topical patch 1 patch topical DAILY PRN pain #30 04/08/22 (Lidoderm) ea naproxen 500 mg tablet 500 mg PO BID PRN pain 10 days #20 04/08/22 tabs cefuroxime axetil 250 mg tablet 250 mg PO BID 7 days #14 tabs 04/11/22 Allergies Allergy/AdvReac Type Severity Reaction Status Date / Time No Known Allergies Allergy Verified 11/05/21 09:36 Review of Systems Review of Systems: Constitutional: No Fever, No Chills Cardiovascular: No Chest Pain, No SOB Gastrointestinal: No Nausea, No Vomiting, No Diarrhea, No abdominal Pain Genitourinary: +Dysuria, +Urinary Frequency, No Hematuria Musculoskeletal: No joint pain, + Myalgias Skin: No Skin Lesions, No rash Neuro: No Weakness, No Numbness, No Dizziness, No Headache Psych: No Anxiety/Panic, No Depression Heme/Lymph: No Bruising, No Lymphadenopathy Endocrine: No Polyuria, No Polydipsia [facility] Past Medical History Medical History 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 Mother No problems noted. Son Addiction to drug Social History Social History (Updated 11/05/21 @ 09:36 by Yesi Conte [facility]) Household Members: Family Housing: House Are you a primary care taker to a significant other at home: No Do you presently have visiting nurse or other home services: No Alcohol intake: never Patient Tobacco Use Status: Never used Tobacco e-Cigarette/Vaping Use: Never Used Second Hand Smoke Exposure: No Advance Directives: Yes Advance Directives on File: Yes Advance Directives Date on File: 05/23/20 service: No Current occupational status: retired Cognitive needs: No Hearing needs: No Vision needs: No Physical Exam Vital Signs: Vital Signs: Last Vital Signs Temp 97.7 F 04/11/22 08:56 Pulse 102 H 04/11/22 08:56 Resp 16 04/11/22 08:56 BP 143/63 H 04/11/22 08:56 Pulse Ox 97 04/11/22 08:56 O2 Del Method 04/11/22 08:56 BMI result Body Mass Index 18.3 Appearance: Alert. Oriented X3. No acute distress. HEENT: normal inspection CVS: Normal heart rate and rhythm. Pulses normal. Respiratory: No respiratory distress. Abd: normal inspection, mild suprapubic tenderness, no rebound or guarding, normal BS x4 Skin: Skin warm and dry. Normal skin color. Normal skin turgor. No rashes. Extremities: normal inspection x4, normal ROM Neuro: Oriented X 3. No motor deficit. No sensory deficit. Course Course Course Narrative: 86-year-old female presents to the ER for evaluation of increased urinary frequency and painful urination that started when she woke up this morning. She reports it feels similar to UTI in the past. She had a UTI last May that was E coli, pansensitive. She denies any fever, chills, nausea, vomiting. On arrival she is slightly tachycardic 102. She is nontoxic-appearing. She is afebrile. Her urinalysis today is positive for infection. She does not appear septic. Will plan to start oral antibiotics and have her follow-up with her primary care doctor. She was given strict return precautions. Stable for discharge home. MDM - Female Genitourinary Lab Data Labs: Lab Results 04/11/22 Range/Units 09:06 Urine Color Yellow Urine Appearance Clear Urine pH 5.5 (5.0-8.0) Ur Specific [place] 1.020 (1.005-1.025) Urine Protein Negative (Neg-Trace) mg/dL Urine Glucose (UA) Negative (Negative) mg/dL Urine Ketones Trace (Negative) mg/dL Urine Blood Negative (Negative) Urine Nitrite Negative (Negative) Ur Leukocyte Esterase Moderate (2+) H (Negative) Urine RBC 0-2 (0-2) /HPF Urine WBC >50 H (0-5) /HPF Ur Squamous Epith Cells 0-2 (0-2) /HPF Urine Bacteria None Seen (None Seen) Hyaline Casts 0-2 (0-2) /LPF Discharge Plan Discharge Clinical Impression: Urinary tract infection Patient Disposition: Home, Self-Care Instructions: Urinary Tract Infection in Older Adults (ED) Additional Instructions: Urine test today showed infection. Antibiotics were sent to your pharmacy. Start taking them right away. Take the entire course. Make sure you stay hydrated and drink plenty of water. Recommend drinking cranberry juice as well, this can help with bladder pain. If you develop new or worsening symptoms call 911 or come back to the ER for further evaluation. Prescriptions: New cefuroxime axetil 250 mg tablet 250 mg PO BID 7 Days Qty: 14 0RF No Action paroxetine HCl 10 mg tablet 20 mg PO QAM Qty: 180 0RF trazodone 50 mg tablet 50 mg PO BEDTIME PRN (Reason: for insomnia) Qty: 90 1RF lidocaine [Lidoderm] 5 % adhesive patch,medicated 1 patch topical DAILY MDD remove after 12 hours PRN (Reason: pain) Qty: 30 0RF Rx Instructions: leave on most painful area for up to 12 hrs acetaminophen [Tylenol Extra Strength] 500 mg tablet 500 mg PO Q6H PRN (Reason: fever or pain) Qty: 14 0RF naproxen 500 mg tablet 500 mg PO BID PRN (Reason: pain) 10 Days Qty: 20 0RF cyclobenzaprine 5 mg tablet 5 mg PO Q8H PRN (Reason: pain (scale score 7-10)) 5 Days Qty: 14 0RF hydroxyurea 500 mg capsule 500 mg PO DAILY
[2022-04-11 09:24] LABS: Appearance Urine Clear; Color Urine Yellow; Glucose Urine UA Negative (Negative); Leukocyte Esterase Urine Moderate (2+) (Negative); Nitrite Urine Negative (Negative); PH 5.5 (5.0-8.0); Urine Blood Negative (Negative); Urine Ketones Trace mg/dL (Negative); Urine Protein Negative (Neg-Trace)
[2022-04-11 09:27] LABS: Bacteria Urine None Seen (None Seen); Hyaline Casts Urine 0-2 /LPF (0-2); RBC Urine 0-2 /HPF (0-2); Squamous Epithelial Cell Urine 0-2 /HPF (0-2); UACC Culture Trigger YES; WBC Urine >50 /HPF (0-5)
== END 2022-04-11 10:14 | disposition home or self-care (01) ==
PROVIDERS: Physician Assistant; Emergency Provider Emergency Medicine; PCP Internal Medicine
DX: N39.0 Urinary tract infection, site not specified (principal); Z79.899 Other long term (current) drug therapy
CPT/HCPCS: 81001; 87086; 87088; 87186; 99282; 99283

== ENCOUNTER 2022-04-30 07:09 | Outpatient (REF) | payer MEDICARE, MEDICAID, SELFPAY ==
[2022-04-30 08:56] LABS: Appearance Urine Clear; Color Urine Yellow; Glucose Urine UA Negative (Negative); Leukocyte Esterase Urine Moderate (2+) (Negative); Nitrite Urine Negative (Negative); PH 7.5 (5.0-9.0); Specific Gravity - Urine 1.015 (1.005-1.025); UMIC TRIGGER UACC YES; Urine Blood Negative (Negative); Urine Ketones Negative (Negative); Urine Protein Negative (Neg-Trace)
[2022-04-30 09:01] LABS: Bacteria Urine None Seen (None Seen); Hyaline Casts Urine 0-2 /LPF (0-2); RBC Urine 0-2 /HPF (0-2); Squamous Epithelial Cell Urine 0-2 /HPF (0-2); UACC Culture Trigger YES; WBC Urine >50 /HPF (0-5)
== END 2022-04-30 07:10 | disposition home or self-care (01) ==
LOC: HO.LAB 07:09
PROVIDERS: PCP Internal Medicine; Visit Provider Internal Medicine
DX: R30.0 Dysuria (principal)
CPT/HCPCS: 81001; 87086; 87088; 87186

== ENCOUNTER 2022-05-01 09:07 | Inpatient (IN) | payer MEDICARE, MEDICAID, SELFPAY ==
--- NOTE | ~2022-05-01 | CT_ITS ---
EXAMINATION: CT ABDOMEN AND PELVIS WITHOUT CONTRAST CLINICAL INFORMATION: Low back pain, suprapubic pain. There COMPARISON: 05/23/2020 TECHNIQUE: Multidetector volumetric imaging was performed from the superior aspect of the liver through the pubic symphysis. Sagittal and coronal reformatted images were obtained on the technologist's workstation. This CT examination was performed using dose optimization techniques as appropriate, variously including the following: *Automated exposure control *Adjustment of mA and/or kV according to patient size (this includes techniques or standardized protocols for targeted exams where dose is matched to indication/reason for exam; i.e. extremities or head) *Use of iterative reconstruction technique DLP: 345 mGy-cm FINDINGS: LUNG BASES: The visualized lung bases are unremarkable. LIVER, GALLBLADDER, AND BILIARY TREE: Partially imaged low-density lesion in the dome of the liver not as well delineated on previous scan which was post contrast The gallbladder is unremarkable with no evidence of radiopaque gallstones, gallbladder wall thickening, or obvious pericholecystic inflammatory changes. PANCREAS: Region the pancreas is not adequately visualized. No intravenous oral contrast is given SPLEEN: Splenomegaly. Once again significant. This appears to be increasing from previous ADRENAL GLANDS: Not adequately visualized. No obvious finding in the region KIDNEYS AND URETERS: Kidneys appear nonobstructed BLADDER: Unremarkable. GASTROINTESTINAL TRACT: GI tract is overall felt to be nonobstructive. No significant free fluid is seen. ABDOMINAL WALL: No significant hernia is appreciated. LYMPH NODES: No convincing evidence for bulky adenopathy VASCULAR: Atherosclerotic changes PELVIC VISCERA: Unremarkable. OSSEOUS STRUCTURES: Sclerotic change involving the pelvic bones to include the proximal femurs partially visualized. Mixed lucent sclerotic change. This is new from previous CT. Degeneration in the lumbar spine. Areas of chronic compression injury CT/CT abdomen pelvis wo IV con IMPRESSION: Limited due to lack of oral and intravenous contrast This exam is demonstrating new areas of sclerotic lesions throughout the pelvic bones to include the proximal femurs. Etiology is indeterminate here. Metastatic disease would need to be considered. Early Pagets would be a consideration. Recommend bone scan to further evaluate. Otherwise marked splenomegaly which appears to be increasing from previous exam. No obvious splenic lesion. Chronic degeneration the lumbar spine but no acute compression injury. This would be a consideration. Fleischner guidelines were followed.
--- NOTE | ~2022-05-01 | CT_ITS ---
EXAMINATION: CT head/brain wo IV con CLINICAL INFORMATION: Reason for Exam eval for mets; weakness right extremities COMPARISON: None. TECHNIQUE: Contiguous axial imaging was performed from the skull base to vertex without intravenous contrast. Sagittal and coronal reformatted images were obtained. This CT examination was performed using dose optimization techniques as appropriate, variously including the following: * Automated exposure control * Adjustment of mA and/or kV according to patient size (this includes techniques or standardized protocols for targeted exams where dose is matched to indication/reason for exam; i.e. extremities or head) Use of iterative reconstruction technique DLP: 625 mGy-cm FINDINGS: No acute osseous or soft tissue abnormality. The mastoids are clear. Moderate left sphenoid sinus opacification. There is no evidence of acute intracranial hemorrhage or territorial infarction. No abnormal mass effect or midline shift is seen. Javier to white matter differentiation is well preserved. No extra-axial fluid collections are identified. No hydrocephalus. Proportional prominence of the ventricles and sulcal spaces is consistent with mild volume loss. Patchy periventricular and deep white matter hypoattenuation is consistent with mild small vessel ischemic changes. CT/CT head/brain wo IV con IMPRESSION: 1. No acute intracranial abnormality including hemorrhage, mass effect, hydrocephalus, or acute territorial edematous infarction. No evidence of intracranial metastatic disease within the inherent limitations of a noncontrast CT examination. 2. Moderate opacification of the left sphenoid sinus. Correlate clinically for sinusitis.
--- NOTE | ~2022-05-01 | NM_ITS ---
EXAMINATION: NM BONE SCAN OF THE WHOLE BODY CLINICAL INFORMATION: Sclerotic pelvic lesions. COMPARISON: Bone windows from CT dated 05/01/2022. TECHNIQUE: Multiple gamma scintillation camera images of the whole body were performed 2.75 hours following the intravenous administration of 19 mCi Tc-99m MDP. FINDINGS: In the head, unremarkable. In the thoracic cage and upper extremities, some minimal uptake in the seventh rib on the left posteriorly. There is also some minimal uptake in the ninth rib posteriorly. This is on the left. The right side is within normal limits. The remainder of the partially visualized upper extremities are within normal limits. In the spine, unremarkable. In the pelvis, no suspicious uptake. Correlation is made with bone windows from recent CT. Some minimal asymmetric uptake involving the superior aspect of the SI joint on the right compared to the left likely in the iliac side. In the lower extremities, visualized lower extremities are felt to be within normal limits. No other definite bony abnormalities are noted. The urinary bladder and faint visualization of both kidneys are noted. NM/NM bone scan whole body IMPRESSION: This exam is remarkable for no significant uptake in the region of bony sclerosis and lucency involving the pelvis in this patient. There may be some mild asymmetric uptake in the region of the SI joints with more uptake on the right superior region but again, otherwise within normal limits and also the remainder of the scan is unremarkable. Still, the bony findings on CT have to be viewed with suspicion. Differential may include myelofibrosis or treated lymphoma or leukemia or possibly multiple myeloma. If further evaluation is warranted recommend pre and postcontrast MRI.
[2022-05-01 09:10] VITALS: BP 147/66; PULSE 105; RESP 18; TEMP 36.9; O2SAT 98; BMI 18.1
[2022-05-01 12:01] LABS: Hematocrit 41.3 % (37.0-47.0); Hemoglobin 12.3 g/dl (12.0-16.0); Mean Corpuscular HGB Conc 29.8 g/dl (31.0-35.0); Mean Corpuscular Volume 80.5 fL (80.0-98.0); NRBC Pct Auto 0.2 /100WBC (0.0-0.2); Platelet Count 178 X10*3/uL (160-400); Red Blood Count 5.13 X10*6/uL (4.20-5.50); Red Cell Distribution Width 19.9 % (11.0-16.0); White Blood Count 21.4 X10*3/uL (4.8-10.8)
[2022-05-01 12:08] LABS: Anion Gap 13 (12-20); Blood Urea Nitrogen 17 mg/dL (9-16); Calcium 8.8 mg/dL (8.4-10.2); Carbon Dioxide 27 mmol/L (22-29); Chloride 102 mmol/L (96-108); Estimated Glomerular Filt Rate > 60; Glucose Random 97 mg/dL (60-115); Potassium 4.4 mmol/L (3.3-5.1); Sodium 138 mmol/L (135-145)
[2022-05-01 12:40] LABS: Atypical Lymph Absolute Manual 0.4 x10*3/uL; Atypical Lymphs Percent Manual 2 % (0-6); Band Neutrophils Percent 1 % (3-5); Basophils Abs Manual 0.2 X10*3/uL (0.0-0.2); Basophils Percent Manual 1 % (0-2); Eosinophils Absolute Manual 0.2 X10*3/uL (0.0-0.4); Eosinophils Percent Manual 1 % (0-4); Lymphocytes Absolute Manual 1.3 X10*3/uL (1.2-4.9); Lymphocytes Percent Manual 6 % (20-40); Metamyelocytes Absolute 0.2 X10*3/uL; Metamyelocytes Percent 1 %; Monocytes Absolute Manual 0.4 X10*3/uL (0.1-1.2); Monocytes Percent Manual 2 % (2-11); Neutrophils Absolute Manual 18.6 X10*3/uL (2.0-8.3); Neutrophils Percent Manual 86 % (45-73)
[2022-05-01 12:42] LABS: Large Platelet PRESENT; Platelet Estimate NORMAL (NORMAL)
[2022-05-01 12:43] LABS: Hypochromasia 1+ (5-14) /OIF; Microcytosis 1+ (5-14) /OIF; Ovalocytes 1+ (5-14) /OIF; Platelet Morphology Comment NOTE
[2022-05-01 12:44] LABS: Polychromasia 1+ (0-2) /OIF; Tear Drop Cells 1+ (0-2) /OIF
[2022-05-01 14:06] LABS: RBC Morphology NOTED
[2022-05-01 14:52] VITALS: BP 152/69; PULSE 92; RESP 18; O2SAT 98
[2022-05-01 15:12] LABS: Appearance Urine Cloudy; Color Urine Yellow; Glucose Urine UA Negative (Negative); Leukocyte Esterase Urine Large (3+) (Negative); Nitrite Urine Negative (Negative); PH 5.5 (5.0-9.0); UMIC TRIGGER UACC YES; Urine Blood Moderate (2+) (Negative); Urine Ketones Trace mg/dL (Negative); Urine Protein 30 (1+) mg/dL (Neg-Trace)
[2022-05-01 15:49] LABS: Bacteria Urine None Seen (None Seen); Hyaline Casts Urine 0-2 /LPF (0-2); RBC Urine >20 /HPF (0-2); UACC Culture Trigger YES; WBC Urine >50 /HPF (0-5)
--- NOTE | 2022-05-01 15:53 | ED.FEMALEGU ---
HPI - Female Genitourinary General Chief complaint: Urogenital-Female Stated complaint: uti Time Seen by Provider: 05/01/22 15:36 Source: patient Mode of arrival: ambulatory History of Present Illness HPI Narrative: 86-year-old female with a past medical history of constipation, essential thrombocytosis, insomnia, urinary incontinence, recent UTI finished antibiotics on 04/18 presenting to the ED complaining of recurrent UTI with dysuria, frequency, suprapubic abdominal pain, and low back pain x3 days. Also reports chills, fatigue. Admits had labs/UA yesterday at [facility] however has not improved results. Denies known fever, nausea/vomiting, hematuria MD elicited complaint: dysuria and UTI Related Data Home Medications Medication Instructions Recorded Confirmed hydroxyurea 500 mg capsule 500 mg PO DAILY 05/23/20 05/01/22 Previous Rx's Medication Instructions Recorded acetaminophen 500 mg tablet 500 mg PO Q6H PRN fever or pain 04/08/22 (Tylenol Extra Strength) #14 tabs cyclobenzaprine 5 mg tablet 5 mg PO Q8H PRN pain (scale score 04/08/22 7-10) 5 days #14 tabs lidocaine 5 % topical patch 1 patch topical DAILY PRN pain #30 04/08/22 (Lidoderm) ea naproxen 500 mg tablet 500 mg PO BID PRN pain 10 days #20 04/08/22 tabs cefuroxime axetil 250 mg tablet 250 mg PO BID 7 days #14 tabs 04/11/22 paroxetine HCl 10 mg tablet 20 mg PO QAM #180 tabs 04/17/22 trazodone 50 mg tablet 50 mg PO BEDTIME PRN for insomnia 04/17/22 #90 tabs Allergies Allergy/AdvReac Type Severity Reaction Status Date / Time No Known Allergies Allergy Verified 04/17/22 14:48 Review of Systems Review of Systems: Constitutional: No Fever, + Chills, + Fatigue, + Malaise ENT/Mouth: No Hearing loss, No Ear Pain, No sore throat, No Rhinorrhea, No Swallowing Difficulty Eyes: No Eye Pain, No Swelling, No Redness Cardiovascular: No Chest Pain, No SOB, No Dyspnea on Exertion, No Orthopnea, No Edema, No Palpitations Respiratory: No Cough, No Sputum, No Dyspnea Gastrointestinal: No Nausea, No Vomiting, No Diarrhea, No Constipation, + Abdominal pain Genitourinary: No irregular bleeding, + Dysuria, + Urinary Frequency, No Hematuria, No Urinary Incontinence/retention, No Urgency, No Flank Pain, No Urinary Flow Changes, No Hesitancy Musculoskeletal: + low back pain, No Myalgias, No Joint Swelling Skin: No Skin Lesions, No rash Neuro: No Weakness, No Dizziness, No Headache Yes all other systems are reviewed and are negative Constitutional: Constitutional: Reports as per [facility] Past Medical History Attestation statement: The following information was validated with the patient. 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 Mother No problems noted. Son Addiction to drug Social History Social History Household Members: Family Housing: House Are you a primary lawn care worker to a significant other at home: No Do you presently have visiting nurse or other home services: No Alcohol intake: never Patient Tobacco Use Status: Former Tobacco user e-Cigarette/Vaping Use: Never Used Second Hand Smoke Exposure: No Use of substances other than those prescribed or required for medical reasons: No Advance Directives: Yes Advance Directives on File: Yes Advance Directives Date on File: 05/23/20 service: No Current occupational status: retired Cognitive needs: No Hearing needs: No Vision needs: No Physical Exam Vital Signs: Vital Signs: Last Vital Signs Temp 98.4 F 05/01/22 09:10 Pulse 92 05/01/22 14:52 Resp 18 05/01/22 14:52 BP 152/69 H 05/01/22 14:52 Pulse Ox 98 05/01/22 14:52 O2 Del Method 05/01/22 14:52 BMI result Body Mass Index 18.1 Const: General: cooperative, healthy appearing and no acute distress Orientation/consciousness: patient oriented x3 Limitations: no limitations HEENT: Head: Yes normal to inspection and Yes atraumatic Ears: hearing grossly normal bilaterally General nose exam: Normal external nose present Face and sinus: Yes normal facial exam Eyes: General: appearance normal, both eyes and all related structures EOM: EOMs intact bilaterally Neck: Neck: Yes normal visual inspection and Yes no meningeal signs Resp: Effort & Inspection: normal respiratory effort and no respiratory distress Auscultation: clear to auscultation bilaterally Cardio: Rate: regular rate Heart sounds: S1 normal heart sound present and S2 normal heart sound present GI: Inspection: Yes normal to inspection Palpation (GI): Soft to palpation, nontender, no guarding, not rigid and Hernia present (Noted to bilateral lower abdomen that is self-reducible and nontender) ventral : General: Yes no CVA tenderness Back/Spine/Pelvis: Other: No midline thoracic/lumbar spinous tenderness/step-off or deformity. + bilateral lower back MSK tenderness to palpation Back: no CVA tenderness Skin: Rashes: no rashes Wounds: no wounds Neuro: General: patient oriented x3, tone normal, moves all extremities and no meningeal signs Gait exam (Neuro): Normal gait present Extrem: General: Yes normal to inspection Course Course Course Narrative: -1550--noted leukocytosis of 21.4 (which appears acute on chronic). Patient denies steroid use. -labs otherwise the patient's baseline -UA infected >> blood cultures from yesterday growing Gram-negative rods > plan to admit for IV antibiotics 1733--CT abdomen pelvis wo IV con IMPRESSION: limited due to lack of oral and intravenous contrast This exam is demonstrating new areas of sclerotic lesions throughout the pelvic bones to include the proximal femurs. Etiology is indeterminate here. Metastatic disease would need to be considered. Early Pagets would be a consideration. Recommend bone scan to further evaluate. ? Otherwise marked splenomegaly which appears to be increasing from previous exam. No obvious splenic lesion. ? Chronic degeneration the lumbar spine but no acute compression injury. ? This would be a consideration.? ? Fleischner guidelines were followed. > plan to admit for further management MDM - Female Genitourinary MDM Narrative Medical decision making narrative: 86-year-old female with a past medical history of constipation, essential thrombocytosis, insomnia, urinary incontinence, recent UTI finished antibiotics on 04/18 presenting to the ED complaining of recurrent UTI with dysuria, frequency, suprapubic abdominal pain, and low back pain x3 days. On exam initially tachycardic, resolved without intervention, NAD, abdomen soft/nontender. Concern for recurrent UTI vs pyelo or renal stone. Lower suspicion for appendicitis/diverticulitis. Blood cultures from 04/30 growing Gram-negative rods > lactic/blood cultures and empiric IV Rocephin added Plan: Labs, UA, CT abdomen/pelvis, anticipated admission Differential Diagnosis Differential diagnosis: Likely urinary tract infection and cystitis Medical Records Attestation: I reviewed the patient's medical records. Lab Data Attestation: I reviewed the patient's lab results. Result diagrams: 05/01/22 11:48 05/01/22 11:48 Labs: Lab Results 05/01/22 05/01/22 05/01/22 Range/Units 11:48 11:48 15:04 WBC 21.4 H (4.8-10.8) X10*3/uL RBC 5.13 (4.20-5.50) X10*6/uL Hgb 12.3 (12.0-16.0) g/dl Hct 41.3 (37.0-47.0) % MCV 80.5 (80.0-98.0) fL MCH 24.0 L (27.0-33.0) pg MCHC 29.8 L (31.0-35.0) g/dl RDW 19.9 H (11.0-16.0) % Plt Count 178 (160-400) X10*3/uL MPV Not Reportable Immature Gran % (Auto) Cancelled Neut % (Auto) Cancelled Lymph % (Auto) Cancelled Mcdonough % (Auto) Cancelled Eos % (Auto) Cancelled Baso % (Auto) Cancelled Lymph # (Auto) Cancelled Mcdonough # (Auto) Cancelled Eos # (Auto) Cancelled Baso # (Auto) Cancelled Abs Immat Gran (auto) Cancelled Absolute Neuts (auto) Cancelled Absolute Nucleated RBC 0.040 H (0.0-0.012) X10*3/uL Nucleated RBC % (auto) 0.2 (0.0-0.2) /100WBC Neutrophils % (Manual) 86 H (45-73) % Band Neutrophils % 1 L (3-5) % Lymphocytes % (Manual) 6 L (20-40) % Atypical Lymphs % (Man) 2 (0-6) % Monocytes % (Manual) 2 (2-11) % Eosinophils % (Manual) 1 (0-4) % Basophils % (Manual) 1 (0-2) % Metamyelocytes % 1 % Abs Neuts (Manual) 18.6 H (2.0-8.3) X10*3/uL Lymphocytes # (Manual) 1.3 (1.2-4.9) X10*3/uL Atyp Lymphs # (Manual) 0.4 x10*3/uL Monocytes # (Manual) 0.4 (0.1-1.2) X10*3/uL Eosinophils # (Manual) 0.2 (0.0-0.4) X10*3/uL Basophils # (Manual) 0.2 (0.0-0.2) X10*3/uL Metamyelocytes # 0.2 X10*3/uL Platelet Estimate NORMAL (NORMAL) Large Platelets PRESENT Plt Morphology Comment NOTE RBC Morphology NOTED Polychromasia 1+ (0-2) /OIF Hypochromasia 1+ (5-14) /OIF Microcytosis 1+ (5-14) /OIF Tear Drop Cells 1+ (0-2) /OIF Ovalocytes 1+ (5-14) /OIF Sodium 138 (135-145) mmol/L Potassium 4.4 (3.3-5.1) mmol/L Chloride 102 (96-108) mmol/L Carbon Dioxide 27 (22-29) mmol/L Anion Gap 13 (12-20) BUN 17 H (9-16) mg/dL Creatinine 0.66 (0.5-1.4) mg/dL Estim Creat Clear Calc 53.0 Estimated GFR > 60 Random Glucose 97 (60-115) mg/dL Lactic Acid (0.5-2.0) mmol/L Calcium 8.8 (8.4-10.2) mg/dL Total Bilirubin 0.6 (0.0-1.0) mg/dL Direct Bilirubin 0.2 (0.0-0.5) mg/dL AST 17 (5-31) U/L ALT 10 (0-31) U/L Alkaline Phosphatase 85 (39-117) U/L Total Protein 6.7 (6.5-8.0) g/dL Albumin 4.0 (3.5-5.0) g/dL Urine Color Yellow Urine Appearance Cloudy Urine pH 5.5 (5.0-9.0) Ur Specific [place] 1.020 (1.005-1.025) Urine Protein 30 (1+) H (Neg-Trace) mg/dL Urine Glucose (UA) Negative (Negative) mg/dL Urine Ketones Trace (Negative) mg/dL Urine Blood Moderate (2+) H (Negative) Urine Nitrite Negative (Negative) Ur Leukocyte Esterase Large (3+) H (Negative) Urine RBC >20 H (0-2) /HPF Urine WBC >50 H (0-5) /HPF Ur Squamous Epith Cells 3-5 (0-2) /HPF Urine Bacteria None Seen (None Seen) Hyaline Casts 0-2 (0-2) /LPF 05/01/22 Range/Units 16:31 WBC (4.8-10.8) X10*3/uL RBC (4.20-5.50) X10*6/uL Hgb (12.0-16.0) g/dl Hct (37.0-47.0) % MCV (80.0-98.0) fL MCH (27.0-33.0) pg MCHC (31.0-35.0) g/dl RDW (11.0-16.0) % Plt Count (160-400) X10*3/uL MPV Immature Gran % (Auto) Neut % (Auto) Lymph % (Auto) Mcdonough % (Auto) Eos % (Auto) Baso % (Auto) Lymph # (Auto) Mcdonough # (Auto) Eos # (Auto) Baso # (Auto) Abs Immat Gran (auto) Absolute Neuts (auto) Absolute Nucleated RBC (0.0-0.012) X10*3/uL Nucleated RBC % (auto) (0.0-0.2) /100WBC Neutrophils % (Manual) (45-73) % Band Neutrophils % (3-5) % Lymphocytes % (Manual) (20-40) % Atypical Lymphs % (Man) (0-6) % Monocytes % (Manual) (2-11) % Eosinophils % (Manual) (0-4) % Basophils % (Manual) (0-2) % Metamyelocytes % % Abs Neuts (Manual) (2.0-8.3) X10*3/uL Lymphocytes # (Manual) (1.2-4.9) X10*3/uL Atyp Lymphs # (Manual) x10*3/uL Monocytes # (Manual) (0.1-1.2) X10*3/uL Eosinophils # (Manual) (0.0-0.4) X10*3/uL Basophils # (Manual) (0.0-0.2) X10*3/uL Metamyelocytes # X10*3/uL Platelet Estimate (NORMAL) Large Platelets Plt Morphology Comment RBC Morphology Polychromasia /OIF Hypochromasia /OIF Microcytosis /OIF Tear Drop Cells /OIF Ovalocytes /OIF Sodium (135-145) mmol/L Potassium (3.3-5.1) mmol/L Chloride (96-108) mmol/L Carbon Dioxide (22-29) mmol/L Anion Gap (12-20) BUN (9-16) mg/dL Creatinine (0.5-1.4) mg/dL Estim Creat Clear Calc Estimated GFR Random Glucose (60-115) mg/dL Lactic Acid 0.7 (0.5-2.0) mmol/L Calcium (8.4-10.2) mg/dL Total Bilirubin (0.0-1.0) mg/dL Direct Bilirubin (0.0-0.5) mg/dL AST (5-31) U/L ALT (0-31) U/L Alkaline Phosphatase (39-117) U/L Total Protein (6.5-8.0) g/dL Albumin (3.5-5.0) g/dL Urine Color Urine Appearance Urine pH (5.0-9.0) Ur Specific [place] (1.005-1.025) Urine Protein (Neg-Trace) mg/dL Urine Glucose (UA) (Negative) mg/dL Urine Ketones (Negative) mg/dL Urine Blood (Negative) Urine Nitrite (Negative) Ur Leukocyte Esterase (Negative) Urine RBC (0-2) /HPF Urine WBC (0-5) /HPF Ur Squamous Epith Cells (0-2) /HPF Urine Bacteria (None Seen) Hyaline Casts (0-2) /LPF Critical Care Time Critical Care Time Critical Care Time: Yes Total Critical Care Time: 35 Attestation: I have personally provided critical care time exclusive of time spent on separately billable procedures. Time includes review of lab data, radiology results, discussion with consultants, and monitoring for potential decompensation. Intervention performed as documented. Discharge Plan Discharge Clinical Impression: Urinary tract infection, Bacteremia Patient Disposition: Admitted As Inpatient
[2022-05-01 16:02] LABS: Alanine Aminotransferase 10 U/L (0-31); Alkaline Phosphatase 85 U/L (39-117); Aspartate Amino Transferase 17 U/L (5-31); Bilirubin Direct 0.2 mg/dL (0.0-0.5); Bilirubin Total 0.6 mg/dL (0.0-1.0); Total Protein 6.7 g/dL (6.5-8.0)
[2022-05-01 16:46] LABS: Lactic Acid 0.7 mmol/L (0.5-2.0)
[2022-05-01] MEDS: cefTRIAXone sodium 1 GM in 0.9 % Sodium Chloride 50 ML IV (17:01)
[2022-05-01] MEDS: 0.9 % Sodium Chloride 1,000 ML 999 ML IV (17:02)
[2022-05-01 18:16] LABS: COVID-19 Test Negative (Negative)
--- NOTE | 2022-05-01 18:19 | PHA.MEDREC ---
Pharmacy Consult ? Medication Reconciliation Pharmacy has completed the medication reconciliation. Patient confirmed all medications. Reports she was prescribed cyclobenzaprine at a previous visit but never got any refills. Patient reports she would like more. Patient reports she need trazodone every night, and has only been getting 2 hours of sleep. Shannan Frost, PharmD
--- NOTE | 2022-05-01 18:23 | P.HPHOSP_ITS ---
History of Present Illness Date of Service: 05/01/22 Attending physician on admission: [facility] Chief Complaint: UTI, sepsis 86 year old female with history of constipation, essential thrombocytosis with polycythemia vera, insomnia, urinary incontinence, recent UTI finished antibiot ics (cefuroxime) on 04/18 presenting to the ED complaining of recurrent UTI with dysuria, frequency, suprapubic abdominal pain, and low back pain x3 days.? Also reports chills, fatigue. Urine culture from yesterday growing gram negative rods. Leukocytosis 21.4 (though WBC is chronically elevated with baseline around 18). She also has been tachycardic since arrival 92-105. No hypoxia or hypotension. Lactic acid 0.7. UA with 2+ blood, 3+ leuks, nitrite negative, no bacteria noted. Blood cultures pending. CT abd/pelvis with new sclerotic lesions throughou the pelvic bones to include the proximal femurs of indeterminite etiology, metastatic disease needing to be consider or early pagets disease. B one scan recommended. Pt also has marked splenomegaly and chronic lumbar degeneration. Has been given dose of ceftriaxone. She also tells me for several months has felt poor with decreased energy, malaise, and weight loss around pounds. Has felt weak with cramping in the legs ongoing for years. Of note, she does follow with Dr. Durham for polycythemia vera and thombocytosis and takes hydroxyurea for this. Review of Systems Review of Systems: General: No fevers, malaise, unintentional weight loss Cardiovascular: No chest pain, palpitations, or leg edema Respiratory: No shortness of breath, wheezing, cough GI: +occassional epigastric pain, +constipation. No other abdominal pain, nausea, vomiting, diarrhea, melena, hematochezia : +dysuria, +urinary incontinence, +urgency. No flank pain or hematuria Neuro: +weakness. 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 Mother No problems noted. Son Addiction to drug Surgical History S/P small bowel resection Social History Household Members: Family Housing: House Are you a primary career education teacher to a significant other at home: No Do you presently have visiting nurse or other home services: No Alcohol intake: never Patient Tobacco Use Status: Former Tobacco user e-Cigarette/Vaping Use: Never Used Second Hand Smoke Exposure: No Use of substances other than those prescribed or required for medical reasons: No Advance Directives: Yes Advance Directives on File: Yes Advance Directives Date on File: 05/23/20 service: No Current occupational status: retired Cognitive needs: No Hearing needs: No Vision needs: No Meds Allergies Allergy/AdvReac Type Severity Reaction Status Date / Time No Known Allergies Allergy Verified 04/17/22 14:48 Active Medications: Current Medications Pharmacy Consult (Consult Rx Perform Med Rec) 1 each MISCELLANE ONCE PRN PRN Reason: Consult order Home Medications Medication Instructions Recorded Confirmed Last Taken Type hydroxyurea 500 mg capsule 500 mg PO DAILY 05/23/20 05/01/22 04/30/22 History paroxetine HCl 10 mg tablet 20 mg PO BEDTIME 05/01/22 05/01/22 Unknown History trazodone 50 mg tablet 50 mg PO BEDTIME 05/01/22 05/01/22 Unknown History Physical Exam Vital Signs and Narrative: Vital Signs: Last Vital Signs Temp 98.4 F 05/01/22 09:10 Pulse 92 05/01/22 14:52 Resp 18 05/01/22 14:52 BP 152/69 H 05/01/22 14:52 Pulse Ox 98 05/01/22 14:52 O2 Del Method 05/01/22 14:52 BMI result Body Mass Index 18.1 Constitutional - Awake and Alert, No apparent distress Eyes - PERRLA, EOMI Cardiovascular - S1S2, RRR, No edema Respiratory - Normal lung expansion, Normal respiratory effort, No respiratory distress, CTA bilaterally Gastrointestinal - softly distended lower abdomen with bilateral reducible nontender hernias. NT; +BS; No rebound or guarding Extremities - no calf tenderness bilaterally, no swelling Skin - Warm/Dry Neurological - Alert & oriented x3, 3/5 strength RUE and RLE and 4/5 LLE and LUE Psychological - Appropriate affect Results Labs CBC and Chem 7: 05/01/22 11:48 05/01/22 11:48 Labs: Laboratory Results - last 24 hr 05/01/22 05/01/22 05/01/22 11:48 11:48 15:04 MCV 80.5 MCH 24.0 L MCHC 29.8 L RDW 19.9 H Plt Count 178 MPV Not Reportable Immature Gran % (Auto) Cancelled Neut % (Auto) Cancelled Lymph % (Auto) Cancelled Day % (Auto) Cancelled Eos % (Auto) Cancelled Baso % (Auto) Cancelled Lymph # (Auto) Cancelled Day # (Auto) Cancelled Eos # (Auto) Cancelled Baso # (Auto) Cancelled Abs Immat Gran (auto) Cancelled Absolute Neuts (auto) Cancelled Absolute Nucleated RBC 0.040 H Nucleated RBC % (auto) 0.2 Neutrophils % (Manual) 86 H Band Neutrophils % 1 L Lymphocytes % (Manual) 6 L Atypical Lymphs % (Man) 2 Monocytes % (Manual) 2 Eosinophils % (Manual) 1 Basophils % (Manual) 1 Metamyelocytes % 1 Abs Neuts (Manual) 18.6 H Lymphocytes # (Manual) 1.3 Atyp Lymphs # (Manual) 0.4 Monocytes # (Manual) 0.4 Eosinophils # (Manual) 0.2 Basophils # (Manual) 0.2 Metamyelocytes # 0.2 Platelet Estimate NORMAL Large Platelets PRESENT Plt Morphology Comment NOTE RBC Morphology NOTED Polychromasia 1+ (0-2) Hypochromasia 1+ (5-14) Microcytosis 1+ (5-14) Tear Drop Cells 1+ (0-2) Ovalocytes 1+ (5-14) Anion Gap 13 Estim Creat Clear Calc 53.0 Estimated GFR > 60 Random Glucose 97 Lactic Acid Calcium 8.8 Total Bilirubin 0.6 Direct Bilirubin 0.2 AST 17 ALT 10 Alkaline Phosphatase 85 Total Protein 6.7 Albumin 4.0 Urine Color Yellow Urine Appearance Cloudy Urine pH 5.5 Ur Specific [place] 1.020 Urine Protein 30 (1+) H Urine Glucose (UA) Negative Urine Ketones Trace Urine Blood Moderate (2+) H Urine Nitrite Negative Ur Leukocyte Esterase Large (3+) H Urine RBC >20 H Urine WBC >50 H Ur Squamous Epith Cells 3-5 Urine Bacteria None Seen Hyaline Casts 0-2 COVID-19 (RONEY) COVID-19 Clin Com 05/01/22 05/01/22 16:31 17:53 MCV MCH MCHC RDW Plt Count MPV Immature Gran % (Auto) Neut % (Auto) Lymph % (Auto) Day % (Auto) Eos % (Auto) Baso % (Auto) Lymph # (Auto) Day # (Auto) Eos # (Auto) Baso # (Auto) Abs Immat Gran (auto) Absolute Neuts (auto) Absolute Nucleated RBC Nucleated RBC % (auto) Neutrophils % (Manual) Band Neutrophils % Lymphocytes % (Manual) Atypical Lymphs % (Man) Monocytes % (Manual) Eosinophils % (Manual) Basophils % (Manual) Metamyelocytes % Abs Neuts (Manual) Lymphocytes # (Manual) Atyp Lymphs # (Manual) Monocytes # (Manual) Eosinophils # (Manual) Basophils # (Manual) Metamyelocytes # Platelet Estimate Large Platelets Plt Morphology Comment RBC Morphology Polychromasia Hypochromasia Microcytosis Tear Drop Cells Ovalocytes Anion Gap Estim Creat Clear Calc Estimated GFR Random Glucose Lactic Acid 0.7 Calcium Total Bilirubin Direct Bilirubin AST ALT Alkaline Phosphatase Total Protein Albumin Urine Color Urine Appearance Urine pH Ur Specific [place] Urine Protein Urine Glucose (UA) Urine Ketones Urine Blood Urine Nitrite Ur Leukocyte Esterase Urine RBC Urine WBC Ur Squamous Epith Cells Urine Bacteria Hyaline Casts COVID-19 (RONEY) Negative COVID-19 Clin Com See Note Imaging Radiologist's Impressions: Impressions Abdomen/Pelvis CT 05/01/22 16:55 IMPRESSION: Limited due to lack of oral and intravenous contrast This exam is demonstrating new areas of sclerotic lesions throughout the pelvic bones to include the proximal femurs. Etiology is indeterminate here. Metastatic disease would need to be considered. Early Pagets would be a consideration. Recommend bone scan to further evaluate. Otherwise marked splenomegaly which appears to be increasing from previous exam. No obvious splenic lesion. Chronic degeneration the lumbar spine but no acute compression injury. This would be a consideration. Fleischner guidelines were followed. Assessment and Plan (1) Sepsis: Qualifiers: Sepsis type: sepsis due to unspecified organism Sepsis acute organ dysfunction status: without acute organ dysfunction Qualified Code(s): A41.9 - Sepsis, unspecified organism Status: Acute (2) Urinary tract infection: Status: Acute Plan constipation, essential thrombocytosis, insomnia, urinary incontinence, recent UTI finished antibiotics on 04/18 presenting to the ED complaining of recurrent UTI admitted for management of UTI with possible sepsis. 1- Sepsis- secondary to UTI with gram negative rods without organ dysfunction -Pt with tachycardia and leukocytosis. Leukocytosis may be related to her myeloproliferative disorders, but WBC is above baseline. No hypotension. Lactic acid normal -Continue IV ceftriaxone. Blood cultures pending 2-UTI- urine culture yesterday growing gram negative rods -Urine culture ordered -Continue IV ceftriaxone -Purewick for urinary incontinence 3-Sclerotic lesions pelvis and femur on ct abd/pelvis suggestive of metastatic disease vs paget disease -Bone scan ordered -Will also check CT head to look for mets with ongoing weakness in the extremities 4-Essential thrombocytosis/Polycythemia vera- stable overall -Leukocytosis at baseline, WBC slightly above baseline -Continue hydroxyurea [id number] -Continue paroxetine and trazodone DNR/DNI DVT prophylaxis- lovenox Pt requires inpt stay of at least 2 midnights due to UTI that has failed outpt abx requiring IV antibiotics as well as new sclerotic lesions suggestive of metastatic disease requiring further evaluation. Quality Stroke Does the patient have a stroke diagnosis?: No VTE Prior VTE?: No VTE Risk Level:: Medical - moderate - high VTE Device Contraindication: Treatment Not Indicated VTE Drug Contraindication: N/A - Med Ordered
[2022-05-01 18:57] LABS: Magnesium 1.8 mg/dL (1.6-2.6)
[2022-05-01] MEDS: Enoxaparin Sodium 40 MG/0.4 ML SYRINGE SUBCUT (21:49)
[2022-05-01] MEDS: traZODone HCL 50 MG TABLET PO (21:49)
[2022-05-01] MEDS: PARoxetine HCL 20 MG TABLET PO (22:01)
[2022-05-01 23:25] VITALS: BP 120/60; PULSE 84; RESP 18; O2SAT 93
[2022-05-02 07:27] LABS: Hemoglobin 11.9 g/dl (12.0-16.0); Mean Corpuscular HGB Conc 29.8 g/dl (31.0-35.0); Mean Corpuscular Hemoglobin 24.2 pg (27.0-33.0); Mean Corpuscular Volume 81.5 fL (80.0-98.0); NRBC Pct Auto 0.2 /100WBC (0.0-0.2); Platelet Count 160 X10*3/uL (160-400); Red Blood Count 4.91 X10*6/uL (4.20-5.50); Red Cell Distribution Width 19.9 % (11.0-16.0); White Blood Count 17.4 X10*3/uL (4.8-10.8)
[2022-05-02 07:54] LABS: Band Neutrophils Percent 4 % (3-5); Basophils Abs Manual 0.2 X10*3/uL (0.0-0.2); Basophils Percent Manual 1 % (0-2); Lymphocytes Absolute Manual 1.9 X10*3/uL (1.2-4.9); Lymphocytes Percent Manual 11 % (20-40); Metamyelocytes Absolute 0.3 X10*3/uL; Metamyelocytes Percent 2 %; Myelocytes Absolute 0.2 X10*/uL; Myelocytes Percent 1 %; Neutrophils Absolute Manual 14.8 X10*3/uL (2.0-8.3); Neutrophils Percent Manual 81 % (45-73)
[2022-05-02 07:56] LABS: Hypochromasia 1+ (5-14) /OIF; Microcytosis 1+ (5-14) /OIF; Ovalocytes 1+ (5-14) /OIF; Platelet Estimate NORMAL (NORMAL); RBC Morphology NOTED; Tear Drop Cells 1+ (0-2) /OIF
[2022-05-02 07:57] LABS: Large Platelet PRESENT; Platelet Morphology Comment NOTED
[2022-05-02 08:36] VITALS: BP 114/55; PULSE 88; RESP 16; O2SAT 92
[2022-05-02] MEDS: 0.9 % Sodium Chloride Flush 3 ML SYRINGE IVFLUSH ×2 (09:37→20:41)
[2022-05-02] MEDS: Hydroxyurea 500 MG CAPSULE PO (10:50)
[2022-05-02 11:51] VITALS: BP 109/58; PULSE 77; RESP 16; O2SAT 94
--- NOTE | 2022-05-02 13:34 | PC.NURSE ---
Currently at Nuclear Med Scan. Patient had assisted to [place] to void prior to transport to study. Amb with steady gait. pericare given
--- NOTE | 2022-05-02 14:06 | MHC.CM.PN ---
IMM 05/02/22, EMR REVIEWED, PT ADMITTED W/UTI AND SEPSIS, CM MET W/PT WHO REPORTS SHE LIVES W/GSON AND SON, REYMUNDO/SHAREE, PT DENIES USE OF DME AND REPORTS HER SON WILL BE PUTTING IN GRAB BARS IN [place], PT ALSO REPORTS PCP/DTR SETTING UP HH SERVICES AND HER SON MAY BE ABLE TO BE HER PCP. PT DENIES NEED FOR ADDITIONAL SERVICES SHE HAS FAMILY TO HELP, PT VERIFIES SHE HAS ONLY RECEIVED [facility] VACCINE, PCP [facility]IVERA, PT DECLINES TO COMPLETE A HCP AND STATES MY DAUGHTER WILL BE TAKING CARE OF ALL THAT. D/C PLAN: ANTIC HOME NO SERVICES W/FAMILY FOR TRANSPORT
--- NOTE | 2022-05-02 14:41 | P.PNIM_ITS ---
Subjective Subjective Date of Service: 05/02/22 Interval History: No acute issues overnight Review of Systems Denies chest pain Denies shortness of breath Denies nausea vomiting diarrhea Denies fever chills Physical Exam Vital Signs: Vital Signs: Last Vital Signs Temp 98.4 F 05/01/22 09:10 Pulse 77 05/02/22 11:51 Resp 16 05/02/22 11:51 BP 109/58 L 05/02/22 11:51 Pulse Ox 94 05/02/22 11:51 O2 Del Method 05/02/22 11:51 BMI result Body Mass Index 18.1 Const: Other: No acute distress Resp: Other: Clear to auscultation bilaterally no rales rhonchi or wheezes Cardio: Other: No S4; positive S1-S2; no S3 murmurs rubs or gallops GI: Other: Soft nontender nondistended with normoactive bowel sounds Extrem: Other: No edema bilaterally Objective Data Active Medications Acetaminophen (Acetaminophen 325 Mg Tablet) 650 mg PO Q6H PRN PRN Reason: Pain, Mild (Pain Scale 1-3) Docusate Sodium (Docusate Sodium 100 Mg Capsule) 100 mg PO BID PRN PRN Reason: Constipation Enoxaparin Sodium (Enoxaparin Sodium 40 Mg/0.4 Ml Syringe) 40 mg SUBCUT Q24H [facility] Last Admin: 05/01/22 21:49 Dose: 40 mg Documented By: KHUSHBOO Hydroxyurea (Hydroxyurea 500 Mg Capsule) 500 mg PO DAILY [facility] Last Admin: 05/02/22 10:50 Dose: 500 mg Documented By: PARKER Ceftriaxone Sodium 1 gm/ (Sodium Chloride) 50 mls @ 100 mls/hr IV Q24H [facility] Ondansetron HCl (Ondansetron Hcl 4 Mg/2 Ml Vial) 4 mg IVPUSH Q8H PRN PRN Reason: Nausea and Vomiting Paroxetine HCl (Paroxetine Hcl 20 Mg Tablet) 20 mg PO BEDTIME [facility] Last Admin: 05/01/22 22:01 Dose: 20 mg Documented By: KHUSHBOO Pharmacy Consult (Consult Rx Perform Med Rec) 1 each MISCELLANE ONCE PRN PRN Reason: Consult order Sodium Chloride (0.9 % Sodium Chloride Flush 3 Ml Syringe) 3 ml IVFLUSH QSHIFT [facility] Last Admin: 05/02/22 09:37 Dose: 3 ml Documented By: PARKER Trazodone HCl (Trazodone Hcl 50 Mg Tablet) 50 mg PO BEDTIME [facility] Last Admin: 05/01/22 21:49 Dose: 50 mg Documented By: KHUSHBOO Labs CBC & Chem 7: 05/02/22 06:00 05/01/22 11:48 Labs: Laboratory Results - last 24 hr 05/01/22 05/01/22 05/01/22 11:48 15:04 16:31 MCV MCH MCHC RDW Plt Count MPV Immature Gran % (Auto) Neut % (Auto) Lymph % (Auto) [place] % (Auto) Eos % (Auto) Baso % (Auto) Lymph # (Auto) [place] # (Auto) Eos # (Auto) Baso # (Auto) Abs Immat Gran (auto) Absolute Neuts (auto) Absolute Nucleated RBC Nucleated RBC % (auto) Neutrophils % (Manual) Band Neutrophils % Lymphocytes % (Manual) Basophils % (Manual) Metamyelocytes % Myelocytes % Abs Neuts (Manual) Lymphocytes # (Manual) Basophils # (Manual) Metamyelocytes # Myelocytes # Platelet Estimate Large Platelets Plt Morphology Comment RBC Morphology Hypochromasia Microcytosis Tear Drop Cells Ovalocytes Lactic Acid 0.7 Magnesium 1.8 Total Bilirubin 0.6 Direct Bilirubin 0.2 AST 17 ALT 10 Alkaline Phosphatase 85 Total Protein 6.7 Albumin 4.0 Urine Color Yellow Urine Appearance Cloudy Urine pH 5.5 Ur Specific [place] 1.020 Urine Protein 30 (1+) H Urine Glucose (UA) Negative Urine Ketones Trace Urine Blood Moderate (2+) H Urine Nitrite Negative Ur Leukocyte Esterase Large (3+) H Urine RBC >20 H Urine WBC >50 H Ur Squamous Epith Cells 3-5 Urine Bacteria None Seen Hyaline Casts 0-2 COVID-19 (RONEY) COVID-19 Clin Com 05/01/22 05/02/22 17:53 06:00 MCV 81.5 MCH 24.2 L MCHC 29.8 L RDW 19.9 H Plt Count 160 MPV Not Reportable Immature Gran % (Auto) Cancelled Neut % (Auto) Cancelled Lymph % (Auto) Cancelled [place] % (Auto) Cancelled Eos % (Auto) Cancelled Baso % (Auto) Cancelled Lymph # (Auto) Cancelled [place] # (Auto) Cancelled Eos # (Auto) Cancelled Baso # (Auto) Cancelled Abs Immat Gran (auto) Cancelled Absolute Neuts (auto) Cancelled Absolute Nucleated RBC 0.030 H Nucleated RBC % (auto) 0.2 Neutrophils % (Manual) 81 H Band Neutrophils % 4 Lymphocytes % (Manual) 11 L Basophils % (Manual) 1 Metamyelocytes % 2 Myelocytes % 1 Abs Neuts (Manual) 14.8 H Lymphocytes # (Manual) 1.9 Basophils # (Manual) 0.2 Metamyelocytes # 0.3 Myelocytes # 0.2 Platelet Estimate NORMAL Large Platelets PRESENT Plt Morphology Comment NOTED RBC Morphology NOTED Hypochromasia 1+ (5-14) Microcytosis 1+ (5-14) Tear Drop Cells 1+ (0-2) Ovalocytes 1+ (5-14) Lactic Acid Magnesium Total Bilirubin Direct Bilirubin AST ALT Alkaline Phosphatase Total Protein Albumin Urine Color Urine Appearance Urine pH Ur Specific [place] Urine Protein Urine Glucose (UA) Urine Ketones Urine Blood Urine Nitrite Ur Leukocyte Esterase Urine RBC Urine WBC Ur Squamous Epith Cells Urine Bacteria Hyaline Casts COVID-19 (RONEY) Negative COVID-19 Clin Com See Note Assessment and Plan (1) Sepsis: Status: Acute (2) Urinary tract infection: Status: Acute Plan 86-year-old female with a past medical history of constipation, essential thrombocytosis, insomnia, urinary incontinence, recent UTI finished antibiotics on 04/18 presenting to the ED complaining of recurrent UTI with dysuria, frequency, suprapubic abdominal pain, and low back pain x3 days.? Also reports chills, fatigue.? Admits had labs/UA yesterday at PCPs however has not improved results.? 1.Sepsis- secondary to UTI(GNR) -resolved -continue CTX pending cultures 2.UTI -Urine culture ordered -Continue IV ceftriaxone -Purewick for urinary incontinence 3-Sclerotic lesions pelvis and femur on ct abd/pelvis suggestive of metastatic disease vs paget disease -Bone scan ordered -further workup based on forthcoming data 4-Essential thrombocytosis/Polycythemia vera- stable overall -Leukocytosis at baseline, WBC slightly above baseline -Continue hydroxyurea 2-[id number] -Continue paroxetine and trazodone DNR/DNI DVT prophylaxis- lovenox Patient requires ongoing hospitalization for IV antibiotics secondary to failed outpatient therapies for UTI Quality Stroke Does the patient have a stroke diagnosis?: No VTE Prior VTE?: No VTE Risk Level:: Medical - moderate - high VTE Device Contraindication: Treatment Not Indicated VTE Drug Contraindication: N/A - Med Ordered
[2022-05-02] MEDS: cefTRIAXone sodium 1 GM in 0.9 % Sodium Chloride 50 ML IV (16:54)
[2022-05-02 17:53] VITALS: BP 135/65; PULSE 79; RESP 18; TEMP 36.4; O2SAT 94
[2022-05-02] MEDS: Enoxaparin Sodium 40 MG/0.4 ML SYRINGE SUBCUT (18:25)
[2022-05-02 19:16] VITALS: BP 106/54; PULSE 86; RESP 16; TEMP 36.6; O2SAT 94
[2022-05-02] MEDS: traZODone HCL 50 MG TABLET PO (20:38)
[2022-05-02] MEDS: PARoxetine HCL 20 MG TABLET PO (20:38)
[2022-05-02 23:07] VITALS: BP 121/57; PULSE 67; RESP 18; TEMP 36; O2SAT 98
[2022-05-02 23:19] VITALS: BP 119/55; PULSE 79; RESP 17; TEMP 36.7; O2SAT 94
[2022-05-03 03:54] VITALS: BP 109/56; PULSE 74; RESP 17; TEMP 36.4; O2SAT 92
[2022-05-03 06:07] LABS: SCAN SMEAR FLAG 1
[2022-05-03 06:09] LABS: Basophils Absolute Auto 0.2 X10*3/uL (0.0-0.2); Basophils Percent Auto 1.2 % (0-2); Eosinophils Absolute Auto 0.1 X10*3/uL (0.0-0.4); Eosinophils Percent Auto 0.5 % (0-4); Hematocrit 38.9 % (37.0-47.0); Hemoglobin 11.6 g/dl (12.0-16.0); Imm Gran Abs Auto 0.82 X10*3/uL (0.00-0.03); Imm Gran Pct Auto 4.7 % (0.0-0.4); Lymphocytes Absolute Auto 0.7 X10*3/uL (1.2-4.9); Lymphocytes Percent Auto 4.2 % (20-40); MANUAL DIFF FLAG SCAN; Mean Corpuscular HGB Conc 29.8 g/dl (31.0-35.0); Mean Corpuscular Hemoglobin 23.9 pg (27.0-33.0); Mean Corpuscular Volume 80.2 fL (80.0-98.0); Monocytes Absolute Auto 0.6 X10*3/uL (0.1-1.2); Monocytes Percent Auto 3.4 % (2-11); NRBC Pct Auto 0.2 /100WBC (0.0-0.2); Neutrophils Absolute Auto 15.2 x10*3/uL (2.0-8.3); Platelet Count 151 X10*3/uL (160-400); Red Blood Count 4.85 X10*6/uL (4.20-5.50); Red Cell Distribution Width 19.6 % (11.0-16.0); White Blood Count 17.6 X10*3/uL (4.8-10.8)
[2022-05-03 06:10] LABS: PLT ABN DIST 1
[2022-05-03 06:27] LABS: Alanine Aminotransferase 9 U/L (0-31); Albumin Level 3.5 g/dL (3.5-5.0); Alkaline Phosphatase 75 U/L (39-117); Anion Gap 13 (12-20); Aspartate Amino Transferase 14 U/L (5-31); Bilirubin Total 0.5 mg/dL (0.0-1.0); Blood Urea Nitrogen 16 mg/dL (9-16); Calcium 8.4 mg/dL (8.4-10.2); Carbon Dioxide 29 mmol/L (22-29); Chloride 102 mmol/L (96-108); Creatinine Clr Calc Pharmacy 57.4; Estimated Glomerular Filt Rate > 60; Glucose Fasting 86 mg/dL (60-99); Potassium 4.6 mmol/L (3.3-5.1); Sodium 139 mmol/L (135-145); Total Protein 5.9 g/dL (6.5-8.0)
[2022-05-03 06:35] LABS: SLIDE REVIEW VERIFIED
[2022-05-03 07:50] VITALS: PULSE 74
[2022-05-03] MEDS: Hydroxyurea 500 MG CAPSULE PO (07:51)
[2022-05-03] MEDS: 0.9 % Sodium Chloride Flush 3 ML SYRINGE IVFLUSH ×3 (07:52→20:55)
[2022-05-03 07:54] VITALS: BP 129/67; PULSE 80; RESP 18; TEMP 36.2; O2SAT 93
--- NOTE | 2022-05-03 10:08 | P.PNIM_ITS ---
Subjective Subjective Date of Service: 05/03/22 Interval History: No acute issues overnight. Still complaining of urinary pressure Review of Systems Denies chest pain Denies shortness of breath Denies nausea vomiting diarrhea Denies fever chills Physical Exam Vital Signs: Vital Signs: Last Vital Signs Temp 97.2 F 05/03/22 07:54 Pulse 80 05/03/22 07:54 Resp 18 05/03/22 07:54 BP 129/67 05/03/22 07:54 Pulse Ox 93 05/03/22 07:54 O2 Del Method 05/03/22 07:54 BMI result Body Mass Index 18.1 Const: Other: No acute distress Resp: Other: Clear to auscultation bilaterally no rales rhonchi or wheezes Cardio: Other: No S4; positive S1-S2; no S3 murmurs rubs or gallops GI: Other: Soft nontender nondistended with normoactive bowel sounds Extrem: Other: No edema bilaterally Objective Data Active Medications Acetaminophen (Acetaminophen 325 Mg Tablet) 650 mg PO Q6H PRN PRN Reason: Pain, Mild (Pain Scale 1-3) Docusate Sodium (Docusate Sodium 100 Mg Capsule) 100 mg PO BID PRN PRN Reason: Constipation Enoxaparin Sodium (Enoxaparin Sodium 40 Mg/0.4 Ml Syringe) 40 mg SUBCUT Q24H [facility] Last Admin: 05/02/22 18:25 Dose: 40 mg Documented By: TITO Hydroxyurea (Hydroxyurea 500 Mg Capsule) 500 mg PO DAILY [facility] Last Admin: 05/03/22 07:51 Dose: 500 mg Documented By: ANTHONY Ceftriaxone Sodium 1 gm/ (Sodium Chloride) 50 mls @ 100 mls/hr IV Q24H [facility] Last Infusion: 05/02/22 17:41 Dose: 0 mls/hr Documented By: LAITH Ondansetron HCl (Ondansetron Hcl 4 Mg/2 Ml Vial) 4 mg IVPUSH Q8H PRN PRN Reason: Nausea and Vomiting Paroxetine HCl (Paroxetine Hcl 20 Mg Tablet) 20 mg PO BEDTIME [facility] Last Admin: 05/02/22 20:38 Dose: 20 mg Documented By: GABE Pharmacy Consult (Consult Rx Perform Med Rec) 1 each MISCELLANE ONCE PRN PRN Reason: Consult order Sodium Chloride (0.9 % Sodium Chloride Flush 3 Ml Syringe) 3 ml IVFLUSH QSHIFT [facility] Last Admin: 05/03/22 07:52 Dose: 3 ml Documented By: ANTHONY Trazodone HCl (Trazodone Hcl 50 Mg Tablet) 50 mg PO BEDTIME [facility] Last Admin: 05/02/22 20:38 Dose: 50 mg Documented By: GABE Labs CBC & Chem 7: 05/03/22 05:46 05/03/22 05:46 Labs: Laboratory Results - last 24 hr 05/01/22 05/01/22 05/01/22 11:48 11:48 15:04 MCV 80.5 MCH 24.0 L MCHC 29.8 L RDW 19.9 H Plt Count 178 MPV Immature Gran % (Auto) Neut % (Auto) Lymph % (Auto) [place] % (Auto) Eos % (Auto) Baso % (Auto) Lymph # (Auto) [place] # (Auto) Eos # (Auto) Baso # (Auto) Abs Immat Gran (auto) Absolute Neuts (auto) Absolute Nucleated RBC 0.040 H Nucleated RBC % (auto) 0.2 Neutrophils % (Manual) 86 H Band Neutrophils % 1 L Lymphocytes % (Manual) 6 L Atypical Lymphs % (Man) 2 Monocytes % (Manual) 2 Eosinophils % (Manual) 1 Basophils % (Manual) 1 Metamyelocytes % 1 Abs Neuts (Manual) 18.6 H Lymphocytes # (Manual) 1.3 Atyp Lymphs # (Manual) 0.4 Monocytes # (Manual) 0.4 Eosinophils # (Manual) 0.2 Basophils # (Manual) 0.2 Metamyelocytes # 0.2 Platelet Estimate NORMAL Large Platelets PRESENT Plt Morphology Comment NOTE RBC Morphology NOTED Polychromasia 1+ (0-2) Hypochromasia 1+ (5-14) Microcytosis 1+ (5-14) Tear Drop Cells 1+ (0-2) Ovalocytes 1+ (5-14) Smear Tech's Comments Anion Gap Estim Creat Clear Calc Estimated GFR Fasting Glucose Calcium Magnesium 1.8 Total Bilirubin 0.6 Direct Bilirubin 0.2 AST 17 ALT 10 Alkaline Phosphatase 85 Total Protein 6.7 Albumin 4.0 Urine Color Yellow Urine Appearance Cloudy Urine pH 5.5 Ur Specific [place] 1.020 Urine Protein 30 (1+) H Urine Glucose (UA) Negative Urine Ketones Trace Urine Blood Moderate (2+) H Urine Nitrite Negative Ur Leukocyte Esterase Large (3+) H Urine RBC >20 H Urine WBC >50 H Ur Squamous Epith Cells 3-5 Urine Bacteria None Seen Hyaline Casts 0-2 05/03/22 05/03/22 05:46 05:46 MCV 80.2 MCH 23.9 L MCHC 29.8 L RDW 19.6 H Plt Count 151 L MPV Not Reportable Immature Gran % (Auto) 4.7 H Neut % (Auto) 86.0 H Lymph % (Auto) 4.2 L [place] % (Auto) 3.4 Eos % (Auto) 0.5 Baso % (Auto) 1.2 Lymph # (Auto) 0.7 L [place] # (Auto) 0.6 Eos # (Auto) 0.1 Baso # (Auto) 0.2 Abs Immat Gran (auto) 0.82 H Absolute Neuts (auto) 15.2 H Absolute Nucleated RBC 0.030 H Nucleated RBC % (auto) 0.2 Neutrophils % (Manual) Band Neutrophils % Lymphocytes % (Manual) Atypical Lymphs % (Man) Monocytes % (Manual) Eosinophils % (Manual) Basophils % (Manual) Metamyelocytes % Abs Neuts (Manual) Lymphocytes # (Manual) Atyp Lymphs # (Manual) Monocytes # (Manual) Eosinophils # (Manual) Basophils # (Manual) Metamyelocytes # Platelet Estimate Large Platelets Plt Morphology Comment RBC Morphology Polychromasia Hypochromasia Microcytosis Tear Drop Cells Ovalocytes Smear Tech's Comments VERIFIED Anion Gap 13 Estim Creat Clear Calc 57.4 Estimated GFR > 60 Fasting Glucose 86 Calcium 8.4 Magnesium Total Bilirubin 0.5 Direct Bilirubin AST 14 ALT 9 Alkaline Phosphatase 75 Total Protein 5.9 L Albumin 3.5 Urine Color Urine Appearance Urine pH Ur Specific [place] Urine Protein Urine Glucose (UA) Urine Ketones Urine Blood Urine Nitrite Ur Leukocyte Esterase Urine RBC Urine WBC Ur Squamous Epith Cells Urine Bacteria Hyaline Casts Microbiology Microbiology Results: Microbiology 05/01/22 17:00 Blood Culture - Preliminary Blood - Venous No growth after 24 hours. 05/01/22 16:31 Blood Culture - Preliminary Blood - Venous No growth after 24 hours. Assessment and Plan (1) Urinary tract infection: Status: Acute (2) Polycythemia vera: Status: Acute Plan 86-year-old female with a past medical history of constipation, essential thrombocytosis, insomnia, urinary incontinence, recent UTI finished antibiotics on 04/18 presenting to the ED complaining of recurrent UTI with dysuria, frequency, suprapubic abdominal pain, and low back pain x3 days.? Also reports chills, fatigue.? Admits had labs/UA yesterday at PCPs however has not improved results.? 1.UTI -Urine culture ordered -Continue IV ceftriaxone -Purewick for urinary incontinence 2.Sclerotic lesions pelvis and femur -Bone scan unremarkable -ooutpatient follow up 3.Essential thrombocytosis/Polycythemia vera- -stable -Continue hydroxyurea 4.Depression-stable -Continue paroxetine and trazodone DNR/DNI DVT prophylaxis- lovenox Patient requires ongoing hospitalization for IV antibiotics secondary to failed outpatient therapies for UTI Quality Stroke Does the patient have a stroke diagnosis?: No VTE Prior VTE?: No VTE Risk Level:: Medical - moderate - high VTE Device Contraindication: Treatment Not Indicated VTE Drug Contraindication: N/A - Med Ordered
[2022-05-03 12:00] VITALS: BP 122/57; PULSE 85; RESP 18; TEMP 36.3; O2SAT 92
[2022-05-03 15:47] VITALS: BP 127/68; PULSE 80; RESP 18; TEMP 37.2; O2SAT 98
[2022-05-03] MEDS: cefTRIAXone sodium 1 GM in 0.9 % Sodium Chloride 50 ML IV (16:51)
[2022-05-03 18:28] VITALS: BP 132/67; PULSE 88; RESP 20; TEMP 37; O2SAT 98
[2022-05-03] MEDS: traZODone HCL 50 MG TABLET PO (20:43)
[2022-05-03] MEDS: PARoxetine HCL 20 MG TABLET PO (20:43)
[2022-05-04] VITALS: BP 110/57; PULSE 78; RESP 18; TEMP 36.7; O2SAT 95
[2022-05-04 03:39] VITALS: BP 122/59; PULSE 74; RESP 18; TEMP 36.8; O2SAT 94
[2022-05-04 06:06] LABS: NRBC Pct Auto 0.2 /100WBC (0.0-0.2); PLT ABN DIST 1
[2022-05-04 06:08] LABS: Hematocrit 38.2 % (37.0-47.0); Hemoglobin 11.6 g/dl (12.0-16.0); Mean Corpuscular HGB Conc 30.4 g/dl (31.0-35.0); Mean Corpuscular Hemoglobin 24.4 pg (27.0-33.0); Mean Corpuscular Volume 80.3 fL (80.0-98.0); Platelet Count 147 X10*3/uL (160-400); Red Blood Count 4.76 X10*6/uL (4.20-5.50); Red Cell Distribution Width 19.5 % (11.0-16.0); White Blood Count 16.8 X10*3/uL (4.8-10.8)
[2022-05-04 06:24] LABS: Alanine Aminotransferase 9 U/L (0-31); Albumin Level 3.5 g/dL (3.5-5.0); Alkaline Phosphatase 75 U/L (39-117); Anion Gap 13 (12-20); Aspartate Amino Transferase 14 U/L (5-31); Bilirubin Total 0.5 mg/dL (0.0-1.0); Blood Urea Nitrogen 16 mg/dL (9-16); Calcium 8.3 mg/dL (8.4-10.2); Carbon Dioxide 29 mmol/L (22-29); Chloride 101 mmol/L (96-108); Creatinine Clr Calc Pharmacy 55.6; Estimated Glomerular Filt Rate > 60; Glucose Fasting 79 mg/dL (60-99); Potassium 4.3 mmol/L (3.3-5.1); Sodium 139 mmol/L (135-145); Total Protein 5.7 g/dL (6.5-8.0)
[2022-05-04 06:26] LABS: Band Neutrophils Percent 0 % (3-5); Basophils Abs Manual 0.2 X10*3/uL (0.0-0.2); Basophils Percent Manual 1 % (0-2); Eosinophils Absolute Manual 0.2 X10*3/uL (0.0-0.4); Eosinophils Percent Manual 1 % (0-4); Lymphocytes Absolute Manual 1.7 X10*3/uL (1.2-4.9); Lymphocytes Percent Manual 10 % (20-40); Neutrophils Absolute Manual 14.8 X10*3/uL (2.0-8.3); Neutrophils Percent Manual 88 % (45-73); RBC Morphology NOTED
[2022-05-04 06:30] LABS: Microcytosis 2+ (15-30) /OIF; Ovalocytes 2+ (15-30) /OIF; Platelet Estimate SLIGHTLY DECREASED (NORMAL); Platelet Morphology Comment NORM; Polychromasia 1+ (0-2) /OIF; Tear Drop Cells 2+ (3-5) /OIF
[2022-05-04 06:31] LABS: Hypochromasia 1+ (5-14) /OIF
[2022-05-04 07:59] VITALS: BP 117/56; PULSE 83; RESP 18; TEMP 36.3; O2SAT 94
[2022-05-04] MEDS: Hydroxyurea 500 MG CAPSULE PO (08:08)
[2022-05-04 11:07] VITALS: BP 113/58; PULSE 79; RESP 18; TEMP 36.4; O2SAT 92
--- NOTE | 2022-05-04 11:42 | P.DS_ITS ---
DS: Providers Provider Date of Service: 05/04/22 Date of admission: 05/01/22 18:18 Date of discharge: 05/04/22 Primary care physician: Jostin Sanders MD DS: Diagnosis Discharge Diagnosis (1) Sepsis: Status: Acute (2) Urinary tract infection: Status: Acute (3) Polycythemia vera: Status: Acute DS: Summary Hospital Course Hospital Course: 86 year old female with history of constipation, essential thrombocytosis with polycythemia vera, insomnia, urinary incontinence, recent UTI finished antibiotics (cefuroxime) on 04/18 presenting to the ED complaining of recurrent UTI with dysuria, frequency, suprapubic abdominal pain, and low back pain x3 days.? Also reports chills, fatigue. Urine culture from yesterday growing gram negative rods. Leukocytosis 21.4 (though WBC is chronically elevated with baseline around 18). She also has been tachycardic since arrival 92-105. No hypoxia or hypotension. Lactic acid 0.7. UA with 2+ blood, 3+ leuks, nitrite ne gative, no bacteria noted. Blood cultures pending. CT abd/pelvis with new sclerotic lesions throughou the pelvic bones to include the proximal femurs of indeterminite etiology, metastatic disease needing to be consider or early pagets disease. Bone scan recommended. Pt also has marked splenomegaly and chronic lumbar degeneration. Has been given dose of ceftriaxone. Hospital course Admitted to general medical floor and continued on ceftriaxone. Urine grew out E coli sensitive to ceftriaxone and over the next 48 hours patient has symptoms resolved and pressure has remained stable. At this point in time she will be discharged to home to follow-up with Urology at her PCP Time Spent with Patient Time attestation: Total time spent providing and/or coordinating discharge services: Discharge coordination time: Greater than 30 minutes Quality: Safe Use of Opioids Does Pt have an Active Cancer Diagnosis on the Problem List?: No Quality: Stroke Does the patient have a stroke diagnosis?: No Physical Exam Vital Signs: Vital Signs: Last Vital Signs Temp 97.6 F 05/04/22 11:07 Pulse 79 05/04/22 11:07 Resp 18 05/04/22 11:07 BP 113/58 L 05/04/22 11:07 Pulse Ox 92 05/04/22 11:07 O2 Del Method 05/04/22 11:07 BMI result Body Mass Index 18.1 Const: Other: No acute distress Resp: Other: Clear to auscultation bilaterally no rales rhonchi or wheezes Cardio: Other: No S4; positive S1-S2; no S3 murmurs rubs or gallops GI: Other: Soft nontender nondistended with normoactive bowel sounds Extrem: Other: No edema bilaterally DS: Data Data Completed and Pending Labs on day of discharge: Laboratory Results - last 24 hr 05/04/22 05/04/22 05:16 05:16 WBC 16.8 H RBC 4.76 Hgb 11.6 L Hct 38.2 MCV 80.3 MCH 24.4 L MCHC 30.4 L RDW 19.5 H Plt Count 147 L MPV TNP Immature Gran % (Auto) Cancelled Neut % (Auto) Cancelled Lymph % (Auto) Cancelled [place] % (Auto) Cancelled Eos % (Auto) Cancelled Baso % (Auto) Cancelled Lymph # (Auto) Cancelled [place] # (Auto) Cancelled Eos # (Auto) Cancelled Baso # (Auto) Cancelled Abs Immat Gran (auto) Cancelled Absolute Neuts (auto) Cancelled Absolute Nucleated RBC 0.030 H Nucleated RBC % (auto) 0.2 Neutrophils % (Manual) 88 H Band Neutrophils % 0 L Lymphocytes % (Manual) 10 L Eosinophils % (Manual) 1 Basophils % (Manual) 1 Abs Neuts (Manual) 14.8 H Lymphocytes # (Manual) 1.7 Eosinophils # (Manual) 0.2 Basophils # (Manual) 0.2 Platelet Estimate SLIGHTLY DECREASED Plt Morphology Comment NORM RBC Morphology NOTED Polychromasia 1+ (0-2) Hypochromasia 1+ (5-14) Microcytosis 2+ (15-30) Tear Drop Cells 2+ (3-5) Ovalocytes 2+ (15-30) Sodium 139 Potassium 4.3 Chloride 101 Carbon Dioxide 29 Anion Gap 13 BUN 16 Creatinine 0.63 Estim Creat Clear Calc 55.6 Estimated GFR > 60 Fasting Glucose 79 Calcium 8.3 L Total Bilirubin 0.5 AST 14 ALT 9 Alkaline Phosphatase 75 Total Protein 5.7 L Albumin 3.5 Preliminary micro results at discharge 05/01/22 17:00 Blood Culture - Preliminary Blood - Venous No growth after 48 hours. 05/01/22 16:31 Blood Culture - Preliminary Blood - Venous No growth after 48 hours. Discharge Plan Discharge Patient Disposition: Home, Self-Care Discharge Diagnosis: Sepsis secondary to UTI Referrals: Jostin Sanders MD [Primary Care Provider] - 1 Week Discharge Medications: New cefuroxime axetil 500 mg tablet 500 mg PO BID 7 Days Qty: 14 0RF Continued acetaminophen [Tylenol Extra Strength] 500 mg tablet 500 mg PO Q6H PRN (Reason: fever or pain) Qty: 14 0RF naproxen 500 mg tablet 500 mg PO BID PRN (Reason: pain) 10 Days Qty: 20 0RF paroxetine HCl 10 mg tablet 20 mg PO BEDTIME trazodone 50 mg tablet 50 mg PO BEDTIME hydroxyurea 500 mg capsule 500 mg PO DAILY Discharge Orders: Discharge Order (Routine); Ordered 05/04/22 Ordered By: Andrew Montalvo Diet: Advance to usual diet Activity on Discharge: As tolerated Stand Alone Forms: Patient Portal Discharge page Care Plan Goals: Complete course of Ceftin 500 twice daily for 7 days Health Concerns: Resume all pre-hospital therapies Plan of Treatment: Follow-up with urologist question Estrace cream Assessment: See discharge summary
--- NOTE | 2022-05-04 11:45 | MHC.CM.PN ---
HOME - SELF CARE RN AWARE OF PLAN.
== END 2022-05-04 12:07 | disposition home or self-care (01) | DRG 872 ==
LOC: HO.ED 16:07 → HO.EDOVER 18:28 → HO.S3 05-02 15:56
PROVIDERS: Physician Assistant; Admitting Provider Physician Assistant; Emergency Provider Internal Medicine; PCP Internal Medicine; Visit Provider Hospitalist
DX: A41.9 Sepsis, unspecified organism (principal); C79.51 Secondary malignant neoplasm of bone; K59.01 Slow transit constipation; F32.A Depression, unspecified; Z66 Do not resuscitate; M88.89 Osteitis deformans of multiple sites; D45 Polycythemia vera; D47.3 Essential (hemorrhagic) thrombocythemia; F51.01 Primary insomnia; Z20.822 Contact with and (suspected) exposure to COVID-19; Z87.440 Personal history of urinary (tract) infections; Z79.899 Other long term (current) drug therapy
CPT/HCPCS: 36415; 70450; 74176; 78306; 80048; 80053; 80076; 81001; 83605; 83735; 85007; 85025; 85027; 87040; 87086; 87635; 96365; 99218; 99285; A9503; J0696; J1650

== ENCOUNTER 2022-06-10 08:00 | Outpatient (RCR) | payer MEDICARE, MEDICAID, SELFPAY ==
--- NOTE | 2022-06-03 10:58 | MHC.PT.EP ---
[facility] [place] Office [place] Office [place] Office [address] Yoana Larkin [address] [phone] F: [phone] F: [phone] F: [phone] F: [phone] Physical Therapy Plan of Care Date of Evaluation: Date of Surgery: Diagnosis: bladder retraining for UI Assessment: 86 y/o female referred to PT with UI. She has a PMH significant for recurrent UTIs and recently was hopsitalized for urosepsis. Hisotry of UI that has progressively worsened over 20 years. She presents with mixed UI (with coughing, sneezing, sit to stands, exertion, water running) and fecal incontinence. She notices UI, however does not feel urge and feel FI episodes. She just started local estrogen cream. Currently she feels limited in sleep, going out of the house, and daily acitivites. Pelvic floor not performed secondary to time constraints but pt reports she would like to do it next visit. Musculoskeletal examination shows limited lumbar and hip AROM, limited B LE strength (especially hips), scoliosis, poor breathing mechanics, and holds breath with exertion and poor load transfer mechanics. Recommend PT 1x/week for 10 weeks to address impairments, implement HEP, and optimize functional mobility. Frequency and Duration: The patient will be seen 1x/week for 8 weeks Short Term Goals: 5 weeks Compliant with HEP Pt will complete bladder diary to assess for bladder irritant and voiding schedule Pt to be able to correctly activate her PFM to allow improved support to bowel and bladder. Pt to be able to demonstrate diaphragmatic breathing to improve pressure exchange and intra abdominal load management. Shelter Goals: 12 weeks 1. Pt to be able to show improved PFM contraction during functional movements such as a bridge or squat to help prevent or limit POP. 2. Pt to reduce # of episodes of ASHUTOSH during the day by 50% to help improve quality of life and reduce pad usage. 3. Pt will demonstrate normal breathing pattern with transitional movements Treatment Plan: Modalities to reduce pain, spasms and effusion. Manual therapy to restore motion and function. Therapeutic exercise to improve strength and flexibility. Neuromuscular re-education for posture and balance. Therapeutic activities to return to functional activities of daily living. Electronically signed by: Please sign and return to therapist. Thank you for your referral.
--- NOTE | 2022-07-15 08:51 | MHC.PT.DC ---
[facility] [place] Office [place] Office [place] Office [address] Yoana Larkin [address] [phone] F: [phone] F: [phone] F: [phone] F: [phone] Physical Therapy Discharge Report Diagnosis: bladder retraining for UI Date of Surgery: Date of Evaluation: 06/03/22 Date of Discharge: 07/08/22 Treatments to Date: 2 Cancellations to Date: 1 No Shows to Date: 2 Discharge Status: Visit Non-compliance Discharge Summary: Pt with consectuive no show and cancellations therefore she is d/c at this time due to attendance policy. At time of last visit, she had given written and verbal consent for pelvic floor consent. Assessment showed noted atrophy throughout vulvar region and gluteals. Gapping introitus with increased rigidity around introitus. No tender points. Redness around vestibule and ? caruncle. PERF 2/5/3//3 . Tends to compensate with breath holding, adductors. Strength at anorectal canal: 1/5 and can hold 8 seconds. Following assessment, worked on pelvic floor contractions HEP with minimizing breath holding and compensation. Provided HEP. Electronically signed by: Michelle Hahn PT Please sign and return to therapist. Thank you for your referral.
== END 2022-07-14 12:43 | disposition home or self-care (01) ==
LOC: HO.PT 08:00
PROVIDERS: PCP Internal Medicine; Visit Provider Internal Medicine Medical Oncology
DX: R32 Unspecified urinary incontinence (principal); Z87.440 Personal history of urinary (tract) infections
CPT/HCPCS: 97112; 97140; 97162

== ENCOUNTER 2022-06-24 15:02 | Emergency (ER) | payer MEDICARE, MEDICAID, SELFPAY | END 2022-06-24 16:34 | disposition left against medical advice (07) | PROVIDERS: Emergency Provider Emergency Medicine | DX: N39.0 Urinary tract infection, site not specified (principal) ==

== ENCOUNTER 2022-07-04 08:00 | Outpatient (REF) | payer MEDICARE, MEDICAID, SELFPAY | END 2022-07-04 08:01 | disposition home or self-care (01) | LOC: HO.BBR 08:00 | PROVIDERS: Visit Provider Internal Medicine Medical Oncology | DX: D75.1 Secondary polycythemia (principal) | CPT/HCPCS: 85018; 99195 ==

== ENCOUNTER → 2022-09-04 09:56 | Outpatient (BNVA) | payer MEDICARE, MEDICAID, SELFPAY | PROVIDERS: PCP Internal Medicine; Visit Provider Urology | DX: N39.3 Stress incontinence (female) (male) (principal); N39.0 Urinary tract infection, site not specified; N95.2 Postmenopausal atrophic vaginitis; N81.89 Other female genital prolapse | CPT/HCPCS: 51798; 99202 ==

== ENCOUNTER 2022-10-07 07:56 | Outpatient (REF) | payer MEDICARE, MEDICAID, SELFPAY | END 2022-10-07 07:57 | disposition home or self-care (01) | LOC: HO.BBR 07:56 | PROVIDERS: Visit Provider Internal Medicine Medical Oncology | DX: D75.1 Secondary polycythemia (principal) | CPT/HCPCS: 85014; 85018; 99195 ==

== ENCOUNTER → 2022-10-15 13:25 | Outpatient (BNVA) | payer MEDICARE, MEDICAID, SELFPAY | PROVIDERS: PCP Internal Medicine; Visit Provider Urology | DX: R32 Unspecified urinary incontinence (principal); N39.0 Urinary tract infection, site not specified; N95.2 Postmenopausal atrophic vaginitis; N81.89 Other female genital prolapse; N39.3 Stress incontinence (female) (male) | CPT/HCPCS: 52000; 99212 ==

== ENCOUNTER 2022-10-20 09:38 | Outpatient (REF) | payer MEDICARE, MEDICAID, SELFPAY ==
[2022-10-20 10:57] LABS: Hematocrit 39.2 % (37.0-47.0); Hemoglobin 11.5 g/dl (12.0-16.0); Mean Corpuscular HGB Conc 29.3 g/dl (31.0-35.0); Mean Corpuscular Hemoglobin 23.5 pg (27.0-33.0); NRBC Pct Auto 0.2 /100WBC (0.0-0.2); Platelet Count 159 X10*3/uL (160-400); Red Cell Distribution Width 20.8 % (11.0-16.0); White Blood Count 17.5 X10*3/uL (4.8-10.8)
[2022-10-20 11:36] LABS: Alanine Aminotransferase 8 U/L (0-31); Albumin Level 3.9 g/dL (3.5-5.0); Alkaline Phosphatase 69 U/L (39-117); Anion Gap 14 (12-20); Aspartate Amino Transferase 16 U/L (5-31); Bilirubin Direct 0.2 mg/dL (0.0-0.5); Bilirubin Total 0.9 mg/dL (0.0-1.0); Blood Urea Nitrogen 19 mg/dL (9-16); Calcium 8.5 mg/dL (8.4-10.2); Carbon Dioxide 29 mmol/L (22-29); Chloride 101 mmol/L (96-108); Cholesterol 142 mg/dL; Estimated Glomerular Filt Rate > 60; Glucose Random 76 mg/dL (60-115); HDL Cholesterol 30 mg/dL; LDL Cholesterol Calculated 87 mg/dl; Potassium 4.5 mmol/L (3.3-5.1); Sodium 139 mmol/L (135-145); Total Protein 6.3 g/dL (6.5-8.0); Triglycerides 127 mg/dL
[2022-10-20 12:02] LABS: T4 Thyroxine 6.7 ug/dL (4.5-12.0); Thyroid Stimulating Hormone 3.51 uIU/mL (0.32-4.0)
[2022-10-21 06:09] LABS: Triiodothyronine T3 Total 98 ng/dL (76-181)
== END 2022-10-20 09:39 | disposition home or self-care (01) ==
LOC: HO.LAB 09:38
PROVIDERS: PCP Internal Medicine; Visit Provider Internal Medicine
DX: N39.3 Stress incontinence (female) (male) (principal); M47.812 Spondylosis without myelopathy or radiculopathy, cervical region; D47.3 Essential (hemorrhagic) thrombocythemia; F51.01 Primary insomnia; E03.9 Hypothyroidism, unspecified
CPT/HCPCS: 36415; 80048; 80061; 80076; 84436; 84439; 84443; 84480; 85027

== ENCOUNTER → 2022-12-24 08:47 | Outpatient (BNVA) | payer MEDICARE, MEDICAID, SELFPAY | PROVIDERS: PCP Internal Medicine; Visit Provider Urology | DX: N39.3 Stress incontinence (female) (male) (principal); N39.0 Urinary tract infection, site not specified; N95.2 Postmenopausal atrophic vaginitis; N81.89 Other female genital prolapse; N36.42 Intrinsic sphincter deficiency (ISD); R15.9 Full incontinence of feces | CPT/HCPCS: 99212 ==

== ENCOUNTER 2023-01-05 10:55 | Outpatient (REF) | payer MEDICARE, MEDICAID, SELFPAY | END 2023-01-05 10:56 | disposition home or self-care (01) | LOC: HO.BBR 10:55 | PROVIDERS: PCP Internal Medicine; Visit Provider Internal Medicine Medical Oncology | DX: D75.1 Secondary polycythemia (principal) | CPT/HCPCS: 85014; 85018; 99195 ==

== ENCOUNTER 2023-04-07 11:02 | Outpatient (REF) | payer MEDICARE, MEDICAID, SELFPAY | END 2023-04-07 11:03 | disposition home or self-care (01) | LOC: HO.BBR 11:02 | PROVIDERS: Visit Provider Internal Medicine Medical Oncology | DX: D75.1 Secondary polycythemia (principal) | CPT/HCPCS: 85018 ==

== ENCOUNTER 2023-05-07 08:19 | Outpatient (AMB) | payer MEDICARE, MEDICAID, SELFPAY ==
--- NOTE | 2023-05-07 08:32 | A.OFFPC_ITS ---
Vital Signs 05/07/23 08:34 Height 5 ft 8 in Weight 117 lb 2 oz BMI 17.8 BP 110/64 Blood Pressure Location Lt brachial Position Sitting Pulse 73 Pulse Source Pulse Oximeter Pulse Oximetry (%) 94 Oxygen Delivery Method Room Air Intake Visit Reasons: Annual Physical Intake Note: Patient is here today for a physical. 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 Accompanied by: Daughter Allergies No Known Allergies Allergy (Verified 05/07/23 08:50) Medication List - Last Reconciled 05/07/23 by Jostin Sanders MD acetaminophen (Tylenol Extra Strength) 500 mg PO Q6H PRN hydroxyurea 500 mg PO DAILY omeprazole 20 mg PO DAILY paroxetine HCl 20 mg PO DAILY trazodone 50 mg PO BEDTIME Tobacco use date assessed: 05/07/23 Fall risk assessment: No Falls in past year Last assessed Fall Risk: 05/07/23 Dental Screening Dental Screen Date: 05/07/23 Did you have a dental visit in the last 12 months?: No Did you have a dental problem in the last 6 months where you did not have access to dental care?: No Was dental information given to patient?: No (denture) HPI Annual Physical HPI Details 87-year-old female presents to the offic e requesting an annual physical. Patient has history of essential thrombocytosis and sees a twister tender paper. As a part of the disease, patient is continuing to have lower extremity pain and nonspecific aches and pains. Able to function and do activities of daily living. Patient does not drive. She lives in a condo with 2 other people. Cooks on her own. Continues to have urinary and fecal incontinence that has been ongoing for many years. Patient reports normal sleep habits with her medications. [facility] Medical History Polycythemia vera Degenerative joint disease of cervical spine Urinary incontinence Constipation by delayed colonic transit Essential thrombocytosis Primary insomnia Surgical History S/P small bowel resection Family History Father No problems noted. Mother No problems noted. Son Addiction to drug Other No family history of cancer Social History Household Members: Family Housing: Apartment Are you a primary child care supervisor to a significant other at home: No Do you presently have visiting nurse or other home services: Yes (insurance company) Alcohol intake: never Patient Tobacco Use Status: Former Tobacco user e-Cigarette/Vaping Use: Never Used Second Hand Smoke Exposure: No Advance Directives Date on File: 05/23/20 service: No Current occupational status: retired Cognitive needs: Yes (cane) Hearing needs: No Vision needs: Yes (glasses) Questionnaire Thrive Questionnaire Date Thrive assessed: 10/20/22 CARMELO-7 AMB Questionnaire CARMELO-7 Date CARMELO - 7 assessed: 10/20/22 Source: Developed by Drs. Carl Kelly, Alexia Bonilla, Israel Nayak and colleagues, with an educational yari from [employer]. Physical exam (Primary Care) Vital Signs: Last Vital Signs Pulse 73 05/07/23 08:34 BP 110/64 05/07/23 08:34 Pulse Ox 94 05/07/23 08:34 Oxygen Delivery Method Room Air 05/07/23 08:34 Care Plan Goal for BP management: Blood pressure is in range. Continue current medications. BMI result Body Mass Index 17.8 Tobacco/Smoking Status: Tobacco use Status Tobacco use date assessed 05/07/23 05/07/23 08:39 Patient Tobacco Use Status Former Tobacco user 05/07/23 08:39 e-Cigarette/Vaping Use Never Used 05/07/23 08:39 Thrive Assessment: Date of Thrive Assessment Date Thrive assessed 10/20/22 05/07/23 08:39 Assessment and Plan Assessment & Plan (1) Annual physical exam: Code(s): Z00.00 - Encounter for general adult medical examination without abnormal findings Plan: Blood work reviewed. Patient needs no refills on medications. (2) Intrinsic sphincter deficiency (ISD): Code(s): N36.42 - Intrinsic sphincter deficiency (ISD) Plan: Condition is chronic and has not worsened. (3) Fecal soiling due to fecal incontinence: Code(s): R15.9 - Full incontinence of feces (4) Trigeminal neuralgia of right side of face: Code(s): G50.0 - Trigeminal neuralgia Plan: Condition is stable. (5) Essential thrombocytosis: Code(s): D47.3 - Essential (hemorrhagic) thrombocythemia Plan: Continue the hydroxyurea. Periodic appointments with her twister tender paper. (6) Primary insomnia: Code(s): F51.01 - Primary insomnia Plan: Continue current medications. Coding Level of Care Code Est Pt Prev Care >65y(42063) Diagnoses Annual physical exam Z00.00 Intrinsic sphincter deficiency (ISD) N36.42 Fecal soiling due to fecal incontinence R15.9 Trigeminal neuralgia of right side of face G50.0 Essential thrombocytosis D47.3 Primary insomnia F51.01
[2023-05-07 08:34] VITALS: BP 110/64; PULSE 73; O2SAT 94; BMI 17.8
== END 2023-05-07 08:50 | disposition home or self-care (01) ==
PROVIDERS: PCP Internal Medicine; Visit Provider Internal Medicine
DX: Z00.00 Encounter for general adult medical examination without abnormal findings (principal); D47.3 Essential (hemorrhagic) thrombocythemia; N36.42 Intrinsic sphincter deficiency (ISD); R15.9 Full incontinence of feces; G50.0 Trigeminal neuralgia; F51.01 Primary insomnia
CPT/HCPCS: 99397

== ENCOUNTER 2023-06-04 08:22 | Outpatient (AMB) | payer MEDICARE, MEDICAID, SELFPAY ==
--- NOTE | 2023-06-04 08:52 | AM.OFFVISNUR ---
Intake Intake Visit Reasons: Flu Shot Allergies No Known Allergies Allergy (Verified 05/07/23 08:50) Office Procedures Flu Questionnaire Does the patient have a severe egg allergy?: No Does the patient have severe life threatening allergies?: No Does the patient have a fever or illness today?: No Has the patient ever had Guillain-[place] Syndrome?: No Has the patient ever had any past reaction to a flu shot?: No Immunizations flu vacc [id number] 6mos up(PF) 60 mcg(15 mcgx4)/0.5 mL IM syringe Performing Provider: Jostin Sanders MD Performing Location: [facility] Administered by: Nury Gates RN on 06/04/23 08:52 Dose Route Admin Location Dispensed Lot Number Expiration Date NDC Founder Chairman And Chief Creative Officer 0.5 mL IM Left Deltoid 0.5 mL [id number] 02/13/23 92123-191-12 [employer] VIS Given Date VIS Provided VIS Publication Date 06/04/23 Single Vaccine 21 Eligibility Eligibility Date Funding Source Not [facility] Eligible 06/04/23 Private Coding Assessment & Plan Assessment & Plan Orders: Orders Influenza [id number] Immunization Today Z23 - Encounter for immunization
== END 2023-06-04 08:54 | disposition home or self-care (01) ==
LOC: HO.HMGH 08:22
PROVIDERS: PCP Internal Medicine; Visit Provider Internal Medicine
DX: Z23 Encounter for immunization (principal)
CPT/HCPCS: 90471; 90686

== ENCOUNTER 2023-07-08 08:01 | Outpatient (REF) | payer MEDICARE, MEDICAID, SELFPAY | END 2023-07-08 08:02 | disposition home or self-care (01) | LOC: HO.BBR 08:01 | PROVIDERS: PCP Internal Medicine; Visit Provider Internal Medicine Medical Oncology | DX: D75.1 Secondary polycythemia (principal) | CPT/HCPCS: 85014; 85018; 99195 ==

== ENCOUNTER 2023-11-05 08:51 | Outpatient (AMB) | payer MEDICARE, MEDICAID, SELFPAY ==
--- NOTE | 2023-11-05 08:53 | A.OFFPC_ITS ---
Vital Signs 11/05/23 08:55 Height 5 ft 8 in Weight 118 lb 2 oz BMI 18.0 BP 120/70 Blood Pressure Location Lt brachial Position Sitting Pulse 89 Pulse Source Pulse Oximeter Pulse Oximetry (%) 96 Oxygen Delivery Method Room Air Intake Visit Reasons: 6mon F/U Intake Note: Patient is here to follow up on DJD, Osteoarthritis, . Roll Reclaimer Required: No Electric Detector Operator: Present Accompanied by: Daughter Allergies No Known Allergies Allergy (Verified 11/05/23 09:36) Medication List - Last Reconciled 11/05/23 by Jostin Sanders MD acetaminophen (Tylenol Extra Strength) 500 mg PO Q6H PRN hydroxyurea 500 mg PO DAILY hydroxyurea (Hydrea) 500 mg PO 1XD paroxetine HCl 20 mg PO DAILY trazodone 50 mg PO BEDTIME Tobacco use date assessed: 11/05/23 Fall risk assessment: No Falls in past year Last assessed Fall Risk: 11/05/23 Dental Screening Dental Screen Date: 11/05/23 Did you have a dental visit in the last 12 months?: No Did you have a dental problem in the last 6 months where you did not have access to dental care?: No Was dental information given to patient?: No HPI 6mon F/U HPI Details 88-year-old female presents to the offic e to discuss her chronic medical conditions. She comes to the office along with her daughter. Patient had baseline state of health. Continues to do some activities independently. Able to take care of her personal hygiene. She does not drive anymore. Lives with her son and grandson. Continues to cook. Sleeping well at night. Patient is reporting that she is getting weaker. Appetite is great. [facility]LY [facility] Medical History (Updated 11/05/23 @ 09:40 by Jostin Sanders MD) Polycythemia vera Degenerative joint disease of cervical spine Urinary incontinence Constipation by delayed colonic transit Essential thrombocytosis Primary insomnia Surgical History S/P small bowel resection Family History Father No problems noted. Mother No problems noted. Son Addiction to drug Other No family history of cancer Social History Household Members: Family Housing: Apartment Are you a primary child care center assistant director to a significant other at home: No Do you presently have visiting nurse or other home services: Yes (insurance company) Alcohol intake: never Patient Tobacco Use Status: Former Tobacco user e-Cigarette/Vaping Use: Never Used Second Hand Smoke Exposure: No Advance Directives Date on File: 05/23/20 service: No Current occupational status: retired Cognitive needs: Yes (cane) Hearing needs: No Vision needs: Yes (glasses) Questionnaire PHQ-9 Over the last 2 weeks, how often have you been bothered by any of the following problems? 1. Little interest or pleasure in doing things: not at all 2. Feeling down, depressed, or hopeless: not at all 3. Trouble falling or staying asleep, or sleeping too much: not at all 4. Feeling tired or having little energy: not at all 5. Poor appetite or overeating: not at all 6. Feeling bad about yourself - or that you are a failure or have let yourself or your family down: not at all 7. Trouble concentrating on things, such as reading the newspaper or watching television: not at all 8. Moving or speaking so slowly that other people could have noticed. Or the opposite - being so fidgety or restless that you have been moving around a lot more than usual: not at all 9. Thoughts that you would be better off or of hurting yourself in some way: not at all Total score: 0 Depression Screening Interpretation: Negative Depression Screening Done: Yes Source: Developed by Drs. Carl Kelly, Alexia Bonilla, Israel Nayak and colleagues, with an educational yari from [employer]. Thrive Questionnaire Date Thrive assessed: 11/05/23 I am a: Patient What is your living situation today?: I have a steady place to live Within the past 12 months, did the food you bought not last and you didn't have the money to get more?: Never true Within the past 12 months, did you worry whether your food would run out before you got money to buy more?: Never true Do you have trouble paying for medicines?: No Do you have trouble getting transportation to medical appointments?: No Do you have trouble paying your heating and electricity bill?: No Do you have trouble taking care of your child, family member or friend?: No Do you have trouble with day-to-day activities such as bathing, preparing meals, shopping, managing finances, etc.?: No Are you currently unemployed and looking for a job?: No Are you interested in more education?: No Currently or been in a relationship where the following occur: no concerns reported THRIVE Score: 0 AUDIT C Alcohol Use Questionnaire (AUDIT-C) 1. How often do you have a drink containing alcohol?: Never Total Score: 0 CARMELO-7 AMB Questionnaire CARMELO-7 Date CARMELO - 7 assessed: 11/05/23 Feeling nervous, anxious, or on edge: 0 = Not at all Not being able to stop or control worryin = Not at all Worrying too much about different things: 0 = Not at all Trouble relaxin = Not at all Being so restless that it is hard to sit still: 0 = Not at all Becoming easily annoyed or irritable: 0 = Not at all Feeling afraid as if something awful might happen: 0 = Not at all Total CARMELO-7 score (0-4 normal; 5-9 mild; 10-14 moderate; 15-21 severe): 0 Source: Developed by Drs. Carl Kelly, Alexia Bonilla, Israel Nayak and colleagues, with an educational yari from [employer]. Physical exam (Primary Care) Vital Signs: Last Vital Signs Pulse 89 11/05/23 08:55 BP 120/70 11/05/23 08:55 Pulse Ox 96 11/05/23 08:55 Oxygen Delivery Method Room Air 11/05/23 08:55 Care Plan Goal for BP management: Blood pressure is in range. BMI result Body Mass Index 18.0 Tobacco/Smoking Status: Tobacco use Status Tobacco use date assessed 11/05/23 11/05/23 09:00 Patient Tobacco Use Status Former Tobacco user 11/05/23 09:00 e-Cigarette/Vaping Use Never Used 11/05/23 09:00 PHQ-9: PHQ-9 Score PHQ-9: Total score 0 11/05/23 09:00 Depression Screening Interpretation: Negative Thrive Assessment: Date of Thrive Assessment Date Thrive assessed 11/05/23 11/05/23 09:00 Currently or been in a relationship where the following occur: no concerns reported Advance Care Planning discussion: Exists, not on file Date of discussion: 11/05/23 Forms completed: Health Care Proxy Const General: cooperative and healthy appearing Nutritional Appearance: well nourished Orientation/consciousness: patient oriented x3 Limitations: no limitations HENMT Head: Yes normal to inspection Eyes General: appearance normal, both eyes and all related structures Neck Neck: Yes normal visual inspection Chest Chest palpation & inspection: normal palpation of entire chest wall Resp Effort & Inspection: normal respiratory effort Neuro General: patient oriented x3 Assessment and Plan Assessment & Plan (1) Polycythemia vera: Code(s): D45 - Polycythemia vera Plan: Blood work reviewed. Condition is stable. Continue hydroxyurea. (2) Essential thrombocytosis: Code(s): D47.3 - Essential (hemorrhagic) thrombocythemia (3) Primary insomnia: Code(s): F51.01 - Primary insomnia Plan: Patient is taking trazodone and paroxetine. Condition is stable on it. Continue current medications. Coding Level of Care Code Est Pt Level 4 (65186) Diagnoses Polycythemia vera D45 Essential thrombocytosis D47.3 Primary insomnia F51.01 Additional Codes Vital Signs *Quality* - Advance Care Planning discussion: Exists, not on file ([id number])
[2023-11-05 08:55] VITALS: BP 120/70; PULSE 89; O2SAT 96; BMI 18.0
== END 2023-11-05 09:25 | disposition home or self-care (01) ==
PROVIDERS: PCP Internal Medicine; Visit Provider Internal Medicine
DX: D45 Polycythemia vera (principal); D47.3 Essential (hemorrhagic) thrombocythemia; F51.01 Primary insomnia; Z00.00 Encounter for general adult medical examination without abnormal findings
CPT/HCPCS: 1123F; 99214

== ENCOUNTER 2024-01-06 10:55 | Outpatient (REF) | payer MEDICARE, MEDICAID, SELFPAY | END 2024-01-06 10:56 | disposition home or self-care (01) | LOC: HO.BBR 10:55 | PROVIDERS: PCP Internal Medicine; Visit Provider Internal Medicine Medical Oncology | DX: D75.1 Secondary polycythemia (principal) | CPT/HCPCS: 85014; 85018; 99195 ==

== ENCOUNTER 2024-04-28 08:19 | Outpatient (AMB) | payer MEDICARE, MEDICAID, SELFPAY ==
--- NOTE | 2024-04-28 08:35 | MHC.PC.OV ---
Vital Signs 04/28/24 08:36 Height 5 ft 8 in Weight 118 lb BMI 17.9 BP 120/60 Blood Pressure Location Lt brachial Position Sitting Pulse 85 Pulse Source Pulse Oximeter Pulse Oximetry (%) 96 Oxygen Delivery Method Room Air Intake Visit Reasons: 6 Month F/U - see comments Intake Note: Patient is here to follow up on DJD, Osteoarthritis. Coastal Tug Mate Required: No Missionary Coordinator: Not Required per policy Accompanied by: Self / Same As Patient Allergies No Known Allergies Allergy (Verified 04/28/24 08:36) Tobacco use date assessed: 04/28/24 Fall risk assessment: No Falls in past year Last assessed Fall Risk: 04/28/24 Dental Screening Dental Screen Date: 11/05/23 HPI 6 Month F/U - see comments HPI Details 88-year-old female presents to the office to discuss her chronic medical condition. Patient comes to the office alone. She reports that her general health is declining. She feels tired constantly. She lives with her son and grandson. 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 Not sleeping continuously for many hours. PENDING SALE TO [facility] Medical History Polycythemia vera Degenerative joint disease of cervical spine Urinary incontinence Constipation by delayed colonic transit Essential thrombocytosis Primary insomnia Surgical History S/P small bowel resection Family History Father No problems noted. Mother No problems noted. Son Addiction to drug Other No family history of cancer Social History Household Members: Family Housing: Apartment Are you a primary student career development specialist to a significant other at home: No Do you presently have visiting nurse or other home services: Yes (insurance [employer]) Alcohol intake: never Patient Tobacco Use Status: Former Tobacco user e-Cigarette/Vaping Use: Never Used Second Hand Smoke Exposure: No Advance Directives Date on File: 05/23/20 service: No Current occupational status: retired Cognitive needs: Yes (cane) Hearing needs: No Vision needs: Yes (glasses) Questionnaire Thrive Questionnaire Date Thrive assessed: 11/05/23 CARMELO-7 AMB Questionnaire CARMELO-7 Date CARMELO - 7 assessed: 11/05/23 Source: Developed by Drs. Carl Kelly, Alexia Bonilla, Israel Nayak and colleagues, with an educational yari from [employer]. Physical exam (Primary Care) Vital Signs: Last Vital Signs Pulse 85 04/28/24 08:36 BP 120/60 04/28/24 08:36 Pulse Ox 96 04/28/24 08:36 Oxygen Delivery Method Room Air 04/28/24 08:36 BMI result Body Mass Index 17.9 Tobacco/Smoking Status: Tobacco use Status Tobacco use date assessed 04/28/24 04/28/24 08:46 Patient Tobacco Use Status Former Tobacco user 04/28/24 08:46 e-Cigarette/Vaping Use Never Used 04/28/24 08:46 Thrive Assessment: Date of Thrive Assessment Date Thrive assessed 11/05/23 04/28/24 08:46 Const General: cooperative and healthy appearing Nutritional Appearance: well nourished Orientation/consciousness: patient oriented x3 Limitations: no limitations HENMT Head: Yes normal to inspection Eyes General: appearance normal, both eyes and all related structures Neck Neck: Yes normal visual inspection Chest Chest palpation & inspection: normal palpation of entire chest wall Resp Effort & Inspection: normal respiratory effort Neuro General: patient oriented x3 Assessment and Plan Assessment & Plan (1) Polycythemia vera: Code(s): D45 - Polycythemia vera Plan: Patient is being followed by an oncologist. (2) Intrinsic sphincter deficiency (ISD): Code(s): N36.42 - Intrinsic sphincter deficiency (ISD) Plan: Continue to use diapers. Patient was encouraged to eat a high-fiber diet. (3) Essential thrombocytosis: Code(s): D47.3 - Essential (hemorrhagic) thrombocythemia Plan: Hydroxyurea is on hold. A CBC will be repeated at the end of the month and a decision will be made to restart the medication. Patient sees a salon receptionist for this condition. (4) Primary insomnia: Code(s): F51.01 - Primary insomnia Plan: Continue conservative measures. Coding Level of Care Code Est Pt Level 4 (99480) Complex EM visit Add On G2211 Diagnoses Polycythemia vera D45 Intrinsic sphincter deficiency (ISD) N36.42 Essential thrombocytosis D47.3 Primary insomnia F51.01
[2024-04-28 08:36] VITALS: BP 120/60; PULSE 85; O2SAT 96; BMI 17.9
== END 2024-04-28 09:22 | disposition home or self-care (01) ==
PROVIDERS: PCP Internal Medicine; Visit Provider Internal Medicine
DX: D45 Polycythemia vera (principal); N36.42 Intrinsic sphincter deficiency (ISD); D47.3 Essential (hemorrhagic) thrombocythemia; F51.01 Primary insomnia
CPT/HCPCS: 99214; G2211

== ENCOUNTER 2024-05-23 07:46 | Emergency (ER) | payer MEDICARE, MEDICAID, SELFPAY ==
--- NOTE | ~2024-05-23 | US_ITS ---
EXAMINATION: US TRIPLEX LOWER EXTREMITY, BILATERAL CLINICAL INFORMATION: Bilateral lower extremity pain COMPARISON: 10/20/2017 TECHNIQUE: Color-flow triplex imaging with spectral analysis and compression Doppler were performed on the bilateral lower extremities. FINDINGS: Respiratory variation, normal compression and augmented flow are noted throughout the bilateral lower extremities. The visualized common femoral vein, superficial femoral vein, profunda femoral vein, popliteal vein and midcalf peroneal and posterior tibial venous segments show no evidence of deep venous thrombosis bilaterally. There is no Lewis's cyst. US/US venous duplex LE BI IMPRESSION: No evidence of deep venous thrombosis involving the bilateral lower extremities. Electronically signed by: Enoc Orta MD 05/23/2024 01:23 PM EDT
[2024-05-23 08:03] VITALS: BP 143/70; PULSE 96; RESP 18; TEMP 36.9; O2SAT 96; BMI 17.6
[2024-05-23 11:37] LABS: Hematocrit 35.9 % (37.0-47.0); Hemoglobin 11.6 g/dl (12.0-16.0); Mean Corpuscular HGB Conc 32.3 g/dl (31.0-35.0); Mean Corpuscular Volume 86.5 fL (80.0-98.0); Mean Platelet Volume 10.7 fL (9.4-12.3); NRBC Pct Auto 0.5 /100WBC (0.0-0.2); Platelet Count 175 X10*3/uL (160-400); Red Blood Count 4.15 X10*6/uL (4.20-5.50); Red Cell Distribution Width 18.5 % (11.0-16.0); White Blood Count 11.5 X10*3/uL (4.8-10.8)
[2024-05-23 11:57] LABS: Band Neutrophils Percent 4 % (3-5); Basophils Abs Manual 0.2 X10*3/uL (0.0-0.2); Basophils Percent Manual 2 % (0-2); Lymphocytes Absolute Manual 0.9 X10*3/uL (1.2-4.9); Lymphocytes Percent Manual 8 % (20-40); Metamyelocytes Absolute 0.2 X10*3/uL; Metamyelocytes Percent 2 %; Monocytes Absolute Manual 0.2 X10*3/uL (0.1-1.2); Monocytes Percent Manual 2 % (2-11); Myelocytes Absolute 0.1 X10*/uL; Myelocytes Percent 1 %; Neutrophils Absolute Manual 9.8 X10*3/uL (2.0-8.3); Neutrophils Percent Manual 81 % (45-73)
[2024-05-23 11:58] LABS: Alanine Aminotransferase 8 U/L (0-31); Albumin Level 3.9 g/dL (3.5-5.0); Alkaline Phosphatase 88 U/L (39-117); Anion Gap 12 (12-20); Aspartate Amino Transferase 17 U/L (5-31); Bilirubin Direct 0.2 mg/dL (0.0-0.5); Bilirubin Total 0.7 mg/dL (0.0-1.0); Blood Urea Nitrogen 16 mg/dL (9-16); Calcium 9.1 mg/dL (8.4-10.2); Carbon Dioxide 27 mmol/L (22-29); Chloride 101 mmol/L (96-108); Creatinine Clr Calc Pharmacy 45.1; Estimated Glomerular Filt Rate > 60; Glucose Random 165 mg/dL (60-115); Magnesium 2.1 mg/dL (1.6-2.6); Potassium 4.2 mmol/L (3.3-5.1); Sodium 136 mmol/L (135-145); Total Protein 6.8 g/dL (6.5-8.0)
[2024-05-23 11:59] LABS: B Type Natriuretic Peptide 210 pg/mL (<100)
[2024-05-23 12:00] LABS: Microcytosis 1+ (5-14) /OIF; RBC Morphology NOTED
[2024-05-23 12:01] LABS: Platelet Estimate NORMAL (NORMAL); Platelet Morphology Comment NORMAL; Polychromasia 1+ (0-2) /OIF; Tear Drop Cells 2+ (3-5) /OIF
== END 2024-05-23 17:40 | disposition left against medical advice (07) ==
PROVIDERS: Physician Assistant; Emergency Provider Emergency Medicine; PCP Internal Medicine
DX: M79.605 Pain in left leg (principal); M79.604 Pain in right leg; Z53.21 Procedure and treatment not carried out due to patient leaving prior to being seen by health care provider
CPT/HCPCS: 36415; 80048; 80076; 82550; 83735; 83880; 85007; 85027; 93970; 99281; 99284

== ENCOUNTER 2024-07-07 08:11 | Outpatient (REF) | payer MEDICARE, MEDICAID, SELFPAY ==
[2024-07-07 08:39] LABS: Hematocrit 34.4 % (37.0-47.0); Mean Corpuscular Hemoglobin 28.7 pg (27.0-33.0); Mean Corpuscular Volume 89.8 fL (80.0-98.0); NRBC Pct Auto 0.5 /100WBC (0.0-0.2); Red Blood Count 3.83 X10*6/uL (4.20-5.50); Red Cell Distribution Width 19.6 % (11.0-16.0); White Blood Count 13.5 X10*3/uL (4.8-10.8)
[2024-07-07 09:01] LABS: Atypical Lymph Absolute Manual 0.4 x10*3/uL; Atypical Lymphs Percent Manual 3 % (0-6); Band Neutrophils Percent 16 % (3-5); Basophils Abs Manual 0.3 X10*3/uL (0.0-0.2); Basophils Percent Manual 2 % (0-2); Eosinophils Absolute Manual 0.5 X10*3/uL (0.0-0.4); Eosinophils Percent Manual 4 % (0-4); Lymphocytes Absolute Manual 1.5 X10*3/uL (1.2-4.9); Lymphocytes Percent Manual 11 % (20-40); Metamyelocytes Absolute 0.4 X10*3/uL; Metamyelocytes Percent 3 %; Monocytes Absolute Manual 0.4 X10*3/uL (0.1-1.2); Monocytes Percent Manual 3 % (2-11); Myelocytes Absolute 0.1 X10*/uL; Myelocytes Percent 1 %; Neutrophils Absolute Manual 9.9 X10*3/uL (2.0-8.3); Neutrophils Percent Manual 57 % (45-73); Nucleated Red Blood Cells 1 /100WBC (0-0)
[2024-07-07 09:03] LABS: Basophilic Stippling 1+ (0-2) /OIF; Macrocytosis 1+ (5-14) /OIF; Ovalocytes 1+ (5-14) /OIF; Platelet Estimate DECREASED (NORMAL); Platelet Morphology Comment NORMAL; RBC Morphology NOTED; Smudge Cells PRESENT
[2024-07-07 09:04] LABS: Polychromasia 1+ (0-2) /OIF
[2024-07-07 09:05] LABS: Platelet Count 107 X10*3/uL (160-400)
== END 2024-07-07 08:12 | disposition home or self-care (01) ==
LOC: HO.BBR 08:11
PROVIDERS: PCP Internal Medicine; Visit Provider Internal Medicine Medical Oncology
DX: D45 Polycythemia vera (principal)
CPT/HCPCS: 36415; 85007; 85027

== ENCOUNTER 2024-07-30 12:41 | Emergency (ER) | payer MEDICARE, MEDICAID, SELFPAY ==
--- NOTE | ~2024-07-30 | XR_ITS ---
EXAMINATION: XR HAND/WRIST, RIGHT CLINICAL INFORMATION: pain s/p fall COMPARISON: None available. TECHNIQUE: PA, lateral, and oblique views of the right hand and wrist. FINDINGS: There is a nondisplaced slightly irregular transverse fractures of the distal metaphysis of the radius. Fracture originates between 1 and 2 cm proximal to the articular surface of the distal radius. Minimal if any dorsal tilt of the distal fragment. There is cortical irregularity of the distal diametaphysis of the ulna compatible with a fracture likely acute with minimal displacement. No additional fractures. Minimal osteoarthritis of the 1st metacarpal phalangeal joint XR/XR hand wrist RT IMPRESSION: 1. Distal radial and ulnar fractures. 2. 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 Electronically signed by: Virgilio Nelson MD 07/30/2024 02:46 PM [facility]
--- NOTE | ~2024-07-30 | CT_ITS ---
EXAMINATION: CT CERVICAL SPINE WITHOUT CONTRAST CLINICAL INFORMATION: Fall COMPARISON: CT scan of the cervical spine April 08, 2022 TECHNIQUE: CT scan of cervical spine was performed reconstruction imaging performed at the acquisition workstation. This CT examination was performed using dose optimization techniques as appropriate, variously including the following: *Automated exposure control *Adjustment of mA and/or kV according to patient size (this includes techniques or standardized protocols for targeted exams where dose is matched to indication/reason for exam; i.e. extremities or head) *Use of iterative reconstruction technique DLP: 814 mGy-cm FINDINGS: There is no fracture or dislocation. Vertebral bodies normal in height. There is mild anterolisthesis of C3 on 3 on C4. There is multilevel spondylosis of cervical spine manifested by varying degrees of degenerative disc change from C3-C4 through C6-C7. This is most prominent and severe at the C6-C7 level with marked disc space narrowing and endplate osteophytes. Bilateral facet arthrosis also present involving multiple levels Soft tissues unremarkable other than arterial calcification compatible calcific atherosclerotic disease. CT/CT cervical spine wo IV con IMPRESSION: 1. No acute abnormality. No change 2. Multilevel spondylosis of the cervical spine. Fleischner guidelines were followed. Electronically signed by: Virgilio Nelson MD 07/30/2024 02:51 PM EST
--- NOTE | ~2024-07-30 | CT_ITS ---
EXAMINATION: CT HEAD WITHOUT CONTRAST CLINICAL INFORMATION: Fall COMPARISON: CT head 05/01/2022 TECHNIQUE: Contiguous axial imaging was performed from the skull base to vertex without intravenous administration of contrast. This CT examination was performed using dose optimization techniques as appropriate, variously including the following: *Automated exposure control *Adjustment of mA and/or kV according to patient size (this includes techniques or standardized protocols for targeted exams where dose is matched to indication/reason for exam; i.e. extremities or head) *Use of iterative reconstruction technique DLP: 814 mGy-cm FINDINGS: There is no mass hemorrhage or cerebral edema. Ventricles and sulci commensurate. No extra-axial fluid collections. Javier-white differentiation normal. Soft tissues and osseous structures normal. No fracture. Sinuses and mastoid air cells clear CT/CT head/brain wo IV con IMPRESSION: No acute intracranial pathology. Electronically signed by: Virgilio Nelson MD 07/30/2024 02:56 PM [facility]
[2024-07-30 13:03] VITALS: BP 127/59; PULSE 79; RESP 20; TEMP 37; O2SAT 97; BMI 23.4
--- NOTE | 2024-07-30 13:04 | ED_ITS ---
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 She reports walking her dog when she tripped on a tree branch, causing her to fall forward. Reports catching herself with her right outstretched hand. Reports right frontal head strike in the dirt. No LOC. Not on anticoagulation. She was able to stand and ambulate after the fall. At present reports right wrist pain/ swelling. Pain is currently a 3-4/10, worse with movement of the wrist. Denies any numbness/tingling/weakness of the RUE, headache, dizziness, vision changes, N/V, confusion, neck or back pain. Denies any other complaints. Related Data Previous Rx's ?Medication ?Instructions ?Recorded acetaminophen 500 mg tablet 500 mg PO Q6H PRN fever or pain 04/08/22 (Tylenol Extra Strength) #14 tabs paroxetine HCl 20 mg tablet 20 mg PO DAILY #90 tabs 10/12/23 trazodone 50 mg tablet 50 mg PO BEDTIME #90 tabs 10/12/23 hydroxyurea 500 mg capsule 500 mg PO DAILY #90 caps 10/22/23 hydroxyurea 500 mg capsule (Hydrea) 500 mg PO 1XD #90 caps 10/28/23 rolling walker with seat #1 ea 02/16/24 Ensure #1 ea 02/19/24 oxycodone 5 mg tablet 5 mg PO Q8H PRN pain (scale score 07/30/24 4-6) 3 days #9 tabs Allergies Allergy/AdvReac Type Severity Reaction Status Date / Time No Known Allergies Allergy Verified 07/30/24 13:08 Review of Systems Review of Systems: Constitutional: No fever, chills, fatigue, night sweats, weight changes ENT/Mouth: No ear pain, hearing loss, nasal congestion, sinus pain, rhinorrhea, sore throat Eyes: No eye pain, swelling, redness, vision changes, discharge Cardio: No chest pain, palpitations, COREA, orthopnea, peripheral edema Pulm: No SOB, cough, sputum, wheezing, dyspnea, hemoptysis GI: No nausea, vomiting, hematemesis, abdominal pain, diarrhea, constipation, hematochezia, melena : No irregular bleeding, dysuria, frequency, urgency, hesitancy, hematuria, flank pain, urinary flow changes, urinary incontinence or retention MSK: No back pain, neck pain, joint pain, myalgias, +right wrist pain Skin: No lesions, rashes Neuro: No weakness, numbness, paresthesias, LOC, dizziness, headache Psych: No anxiety/panic, depression, SI/HI, AH/VH All other systems reviewed and are negative. [facility] Past Medical History Attestation statement: The following information was validated with the patient. Source: old records reviewed and nursing notes reviewed Medical History Polycythemia vera Degenerative joint disease of cervical spine Urinary incontinence Constipation by delayed colonic transit Essential thrombocytosis Primary insomnia Surgical History S/P small bowel resection Family History Family History Father No problems noted. Mother No problems noted. Son Addiction to drug Other No family history of cancer Social History Social History Household Members: Family Housing: Apartment Are you a primary infant childcare provider to a significant other at home: No Do you presently have visiting nurse or other home services: Yes (insurance company) Alcohol intake: never Patient Tobacco Use Status: Former Tobacco user e-Cigarette/Vaping Use: Never Used Second Hand Smoke Exposure: No Advance Directives: Yes Advance Directives on File: Yes Advance Directives Date on File: 05/23/20 service: No Current occupational status: retired Cognitive needs: Yes (cane) Hearing needs: No Vision needs: Yes (glasses) Physical Exam Vital Signs: Vital Signs: Last Vital Signs Temp 98.2 F 07/30/24 16:18 Pulse 72 07/30/24 16:18 Resp 20 07/30/24 16:18 BP 126/62 07/30/24 16:18 Pulse Ox 98 07/30/24 16:18 O2 Del Method Room Air 07/30/24 16:18 BMI result Body Mass Index 23.4 Vital signs stable General: Well appearing, in no acute distress. Skin: Warm, dry, intact. No rashes or lesions. Head: Normocephalic, atraumatic. small abrasion to right cheek, no active bleeding. no deformity. no palpable hematoma or skull fracture. EENT: Hearing is intact b/l. Conjunctiva clear. PERRLA. EOM intact without entrapment. Moist mucous membranes.? Neck: no midline cervical tenderness or step off. Cardiac: Chest wall symmetric. RRR Lungs: Normal respiratory effort without accessory muscle use. CTA bilaterally Abdomen: Soft, non-tender, non-distended. No rebound tenderness or guarding. Positive BS x4. Back: No midline spinous or paraspinal tenderness. No step off deformity. Ext: +right wrist with subtle deformity, noted ecchymosis and swelling primarily to radial aspect of right wrist. ttp. no palpable crepitus. pain w/ ROM. able to move all digits. sensation intact. 2+radial pulse intact. cap refill <2 seconds. +small skin tear to her right knee, no swelling or deformity. non tender. FROM intact to right knee. 2+pt/dp pulse intact. Neuro: AOx3. Normal speech. Strength 5/5 intact throughout. NV intact distally. Ambulating with steady gait. Psych: Appropriate mood and affect. Responds appropriately to questions. Course Course Course Narrative: This is an RME: Additional HPI, ROS, PE not included below will be deferred to primary provider. RME assessment and note performed by: Verito Harrison PA-C This is a [id number]-female who presents to the ER with complaints of right wrist pain s/p mechanical fall which occurred about 1 hour ago. Reports that she fell forward and struck her face on the ground. No LOC. Obvious r wrist deformity. She is right hand dominant. +radial pulse Plan: Xrays, CT head/neck Reevaluation(s) Reevaluation #1: 1600 -- x-ray right hand/wrist showing nondisplaced slightly irregular transverse fractures of the distal metaphysis of the radius originating between 1 and 2 cm proximal to the articular surface of the distal radius. There is also a cortical irregularity of the distal diametaphysis of the ulna compatible with a fracture with minimal displacement. No other fractures. CT head/brain without bleed or fracture. CT cervical spine without fracture or subluxation. > patient informed of all workup results. I did reach out to on-call orthopedic MARIS Martínez who recommended sugar-tong splint. Splint placed by myself, assisted by swimming pool service technician Lexi. See procedure note. Patient tolerated well and reports comfort with splint. Able to move all fingers comfortably. Cap refill less than 2 seconds. Sensation intact. The extremity was placed in a sling for comfort. Reporting 3/10 pain, Tylenol given. She is not wish to take anything stronger. Advised that she will need to follow-up with orthopedics outpatient. Referral provided. Patient has remained stable throughout ED visit today. Discussed worrisome signs and symptoms and when to return to the ED. All quest ions answered at this time. Patient is agreeable with disposition and stable for discharge. Medications Administered Discontinued Medications Generic Name Dose Route Start Last Admin Trade Name Renae PRN Reason Stop Dose Admin Acetaminophen 975 mg 07/30/24 14:39 07/30/24 15:02 Acetaminophen 325 Mg Tablet PO 07/30/24 14:40 975 mg ONCE ONE Administration Bacitracin 1 appl 07/30/24 16:12 07/30/24 16:15 Bacitracin Oint 0.9 Gm Packet TOPICAL 07/30/24 16:13 1 appl ONCE ONE Administration Protocol Procedures Orthopedic Splinting/Casting Injury #1: Side: right Upper Extremity Injury Location: wrist Upper Extremity Immobilizer: sling/shoulder immobilizer and sugar tong splint Medical Decision Making Medical Decision Making MDM Narrative: 88 year old right hand dominant female with pmhx significant for constipation, essential thrombocytosis, insomnia, urinary incontinence presents to the ED today with her daughter for evaluation after a 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 Vital signs stable. She is nontoxic appearing and in NAD, sitting comfortably on the exam bed. Exam significant for right wrist with subtle deformity, noted ecchymosis and swelling primarily to radial aspect of right wrist. ttp. no palpable crepitus. no snuffbox tenderness. pain w/ ROM. able to move all digits. sensation intact. 2+ radial pulse intact. cap refill <2 seconds. small skin tear to her right knee, no swelling or deformity. non tender. FROM intact to right knee. 2+pt/dp pulse intact. head is normocephalic, atraumatic. no midline c spine tenderness. AOX3. exam nonfocal. Differential diagnosis includes contusion, fracture, sprain/strain, scaphoid fracture. unlikely nv compromise, threat to limb, compartment syndrome. unlikely skull fracture, ICH, CVA/TIA, TBI. Plan for imaging, pain control, re-evaluation. Differential Diagnosis Differential Diagnoses: The differential diagnosis associated with the presentation includes as above. Admission/Observation Not indicated. Consult Healthcare Provider Management of the patient was discussed with: Campaign Assistant Ortho OLAYINKA Martínez Independent Interpretation I performed an independent interpretation of an: Plain X-Ray and CT Scan Interpretation: XR right hand/wrist showing distal radial and ulna fractures CT head without bleed or fracture CT cervical spine without fracture Radiology Impression Discussion of test interpretation with radiology: I have reviewed the radiologist's reading. Radiologist Impression: EXAMINATION: CT CERVICAL SPINE WITHOUT CONTRAST CLINICAL INFORMATION: Fall COMPARISON: CT scan of the cervical spine April 08, 2022 TECHNIQUE: CT scan of cervical spine was performed reconstruction imaging performed at the acquisition workstation. This CT examination was performed using dose optimization techniques as appropriate, variously including the following: *Automated exposure control *Adjustment of mA and/or kV according to patient size (this includes techniques or standardized protocols for targeted exams where dose is matched to indication/reason for exam; i.e. extremities or head) *Use of iterative reconstruction technique DLP: 814 mGy-cm FINDINGS: There is no fracture or dislocation. Vertebral bodies normal in height. There is mild anterolisthesis of C3 on 3 on C4. There is multilevel spondylosis of cervical spine manifested by varying degrees of degenerative disc change from C3-C4 through C6-C7. This is most prominent and severe at the C6-C7 level with marked disc space narrowing and endplate osteophytes. Bilateral facet arthrosis also present involving multiple levels Soft tissues unremarkable other than arterial calcification compatible calcific atherosclerotic disease. CT/CT cervical spine wo IV con IMPRESSION: 1. No acute abnormality. No change 2. Multilevel spondylosis of the cervical spine. Fleischner guidelines were followed. Electronically signed by: Virgilio Nelson MD 07/30/2024 02:51 PM [facility] [place], [place] EXAMINATION: CT HEAD WITHOUT CONTRAST CLINICAL INFORMATION: Fall COMPARISON: CT head 05/01/2022 TECHNIQUE: Contiguous axial imaging was performed from the skull base to vertex without intravenous administration of contrast. This CT examination was performed using dose optimization techniques as appropriate, variously including the following: *Automated exposure control *Adjustment of mA and/or kV according to patient size (this includes techniques or standardized protocols for targeted exams where dose is matched to indication/reason for exam; i.e. extremities or head) *Use of iterative reconstruction technique DLP: 814 mGy-cm FINDINGS: There is no mass hemorrhage or cerebral edema. Ventricles and sulci commensurate. No extra-axial fluid collections. Javier-white differentiation normal. Soft tissues and osseous structures normal. No fracture. Sinuses and mastoid air cells clear CT/CT head/brain wo IV con IMPRESSION: No acute intracranial pathology. Electronically signed by: Virgilio Nelson MD 07/30/2024 02:56 PM EST RP EXAMINATION: XR HAND/WRIST, RIGHT CLINICAL INFORMATION: pain s/p fall COMPARISON: None available. TECHNIQUE: PA, lateral, and oblique views of the right hand and wrist. FINDINGS: There is a nondisplaced slightly irregular transverse fractures of the distal metaphysis of the radius. Fracture originates between 1 and 2 cm proximal to the articular surface of the distal radius. Minimal if any dorsal tilt of the distal fragment. There is cortical irregularity of the distal diametaphysis of the ulna compatible with a fracture likely acute with minimal displacement. No additional fractures. Minimal osteoarthritis of the 1st metacarpal phalangeal joint XR/XR hand wrist RT IMPRESSION: 1. Distal radial and ulnar fractures. 2. 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 Electronically signed by: Virgilio Nelson MD 07/30/2024 02:46 PM EST RP Independent Historian Clinical information obtained from an independent historian. History obtained from or confirmed by: Other (daughter) External Record Review External record reviewed: Inpatient record, Office record, Outpatient record, Prior outpatient labs, Prior outpatient radiology, Primary care record and Outside ED record Prescription Management I considered prescription management with: Pain Medication Social Determinants Patient?s care significantly limited by Social Determinants of Health including: Other Social Determinant of Health Critical Care Time Critical Care Time Critical Care Time: No Discharge Plan Discharge Clinical Impression: Closed fracture distal radius and ulna Patient Disposition: Home, Self-Care Instructions: Wrist Fracture in Adults (ED), How to Use a Sling (ED), Splint Care (ED) Additional Instructions: You have been evaluated in the Emergency Department today for right wrist pain after a trip and fall this morning. The CT scans of your head and neck do not reveal bleed or fracture. Your evaluation showed a fracture to your right radius and ulna (wrist). I have placed your wrist in a splint today. Avoid getting the splint wet. Keep this intact until you are able to follow up with the orthopedic office. We have provided a sling for you to use while your wrist heals. Please rest and elevate your wrist. I recommend you take 600mg ibuprofen every 6 hours or tylenol 650mg every 6 hours as needed for pain. If needed, you can alternate these medications so that you take one medication every 3 hours. For example, at noon take ibuprofen, then at 3pm take tylenol, then at 6pm take ibuprofen.? Please take oxycodone as directed as necessary for breakthrough pain. Please follow-up with an orthopedic surgeon in 1 week. You have been provided with a referral. Call them to make an appointment, they will not call you. Return to the Emergency Department if you experience worsening pain, numbness, tingling, change of color in your fingers, or any other concerning symptoms. Prescriptions: New oxycodone 5 mg tablet 5 mg PO Q8H PRN (Reason: pain (scale score 4-6)) 3 Days Qty: 9 0RF Rx Instructions: Partial Fill upon patient request. No Action trazodone 50 mg tablet 50 mg PO BEDTIME Qty: 90 0RF paroxetine HCl 20 mg tablet 20 mg PO DAILY Qty: 90 0RF hydroxyurea 500 mg Capsule 500 mg PO DAILY Qty: 90 6RF hydroxyurea [Hydrea] 500 mg Capsule 500 mg PO 1XD Qty: 90 5RF (DME) rolling walker with seat See Rx Instructions .Route .MEDSUPPLY Qty: 1 0RF Rx Instructions: As directed (DME) Ensure See Rx Instructions .Route .MEDSUPPLY Qty: 1 0RF Rx Instructions: As directed 1 can twice daily acetaminophen [Tylenol Extra Strength] 500 mg tablet 500 mg PO Q6H PRN (Reason: fever or pain) Qty: 14 0RF Referrals: [facility] [Provider Group] - 2 days (Distal radial and ulnar fractures.) Interventions: ED Discharge Assessment Last Done: 07/30/24 16:18 Discharge Date/Time: 07/30/24 16:19 Print Language: Italian
[2024-07-30] MEDS: Acetaminophen 325 MG TABLET 975 MG PO (15:02)
--- NOTE | 2024-07-30 15:05 | PC.NURSE ---
pt medicated for 3/10 rt arm pain, pt states as long as she doesnt move it the pain stays lower
--- NOTE | 2024-07-30 15:50 | PC.NURSE ---
provider applied splint to RUE, splint applied as well.
[2024-07-30] MEDS: Bacitracin Oint 0.9 GM PACKET 1 APPL TOPICAL (16:15)
--- NOTE | 2024-07-30 16:16 | PC.NURSE ---
pt noticed a skin tear to rt knee, provider at bedside to evaluate- dressing applied
[2024-07-30 16:18] VITALS: BP 126/62; PULSE 72; RESP 20; TEMP 36.8; O2SAT 98
== END 2024-07-30 16:19 | disposition home or self-care (01) ==
PROVIDERS: Emergency Provider Emergency Medicine; PCP Internal Medicine
DX: S52.501A Unspecified fracture of the lower end of right radius, initial encounter for closed fracture (principal); S52.691A Other fracture of lower end of right ulna, initial encounter for closed fracture; S00.81XA Abrasion of other part of head, initial encounter; W01.0XXA Fall on same level from slipping, tripping and stumbling without subsequent striking against object, initial encounter; Y93.K1 Activity, walking an animal; Y92.480 Sidewalk as the place of occurrence of the external cause; Y99.9 Unspecified external cause status
CPT/HCPCS: 29125; 70450; 72125; 73110; 73130; 99283; 99284

== ENCOUNTER 2024-08-02 08:23 | Outpatient (AMB) | payer MEDICARE, MEDICAID, SELFPAY ==
--- NOTE | 2024-08-02 08:43 | MHC.OFFVIS ---
Intake Visit Reasons: FC- ED f/u RT distal radius fx DOI 07/30/24 Intake Note: Cholo is a 88 year old right hand dominant female who presents today for a evaluation of her right distal radius fx, DOI 07/30/24. She reports walking her dog when she tripped on a tree branch, causing her to fall forward. Reports catching herself with her right outstretched hand. Reports right frontal head strike in the dirt. She states that her pain is a bit better when it is resting, however when she moves it she gets sharp pain. Allergies No Known Allergies Allergy (Verified 08/02/24 08:43) HPI HPI FC- ED f/u RT distal radius fx DOI 07/30/24: Details: 88-year-old [id number]-[id number] female who presents in the office today for an evaluation of right distal radius fracture. The patient presented to the ED with her daughter on 07/30/24 status post a mechanical trip and fall that occurred on 07/30/24. She tripped on a tree branch when walking her dog, resulting in her falling forward with her right outstretched hand and her right frontal head striking in the dirt. X-rays of the right hand/wrist were obtained in the ER. She was placed in a splint and prescribed oxycodone 5 mg PO Q8H PRN for pain. Additionally, she can take ibuprofen 600 mg PO Q6H or Tylenol 650 mg PO Q6H alternately PRN as needed. While in the office today, the patient reports right upper extremity pain. She states she finds mild pain relief when resting; however, she experiences sharp pain with her hand movements. 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 Mother No problems noted. Son Addiction to drug Other No family history of cancer Social History Household Members: Family Housing: Apartment Are you a primary personal care aide to a significant other at home: No Do you presently have visiting nurse or other home services: Yes (insurance company) Alcohol intake: never Patient Tobacco Use Status: Former Tobacco user e-Cigarette/Vaping Use: Never Used Second Hand Smoke Exposure: No Advance Directives Date on File: 05/23/20 service: No Current occupational status: retired Cognitive needs: Yes (cane) Hearing needs: No Vision needs: Yes (glasses) Review of Systems Const All systems reviewed & are unremarkable except as noted in HPI and below Physical Exam Const General: cooperative, healthy appearing and no acute distress Resp Effort & Inspection: normal respiratory effort and able to speak in complete sentences Cardio Rate: regular rate Peripheral pulses: Peripheral pulses 2+ throughout GI Palpation (GI): Soft to palpation Skin Lesions: no lesions Rashes: no rashes Extrem Other: Right upper extremity: Moderate edema on the dorsal aspect of the hand. Tenderness to palpation over the distal radius. Able to perform finger flexion and extension; but, is significantly limited due to edema. Lacking about 5 centimeters from making a closed fist. Denies any numbness or tingling sensation. Cap refill is brisk. Radial pulse intact. Office Procedures Casting/Splints 16017-Ubvw/Wrist Cast Application Procedure code (CPT) selection complete Assessment & Plan Assessment & Plan (1) Distal radius fracture, right: Code(s): S52.501A - Unspecified fracture of the lower end of right radius, initial encounter for closed fracture Category: Medical Plan Ms. Raygoza is a 88-year-old [id number] female who presents in the office today for an evaluation of right distal radius fracture. The patient presented to the ED with her daughter on 07/30/24 status post a mechanical trip and fall which occurred on 07/30/24. She tripped on a tree branch when walking her dog, resulting in her falling forward with her right outstretched hand and her right frontal head striking in the dirt. X-rays of the right hand/wrist were obtained in the ER. She was placed in a splint and prescribed oxycodone 5 mg PO Q8H PRN for pain. Additionally, she can take ibuprofen 600 mg PO Q6H or Tylenol 650 mg PO Q6H alternately PRN as needed. While in the office today, the patient reports right upper extremity pain. She states she finds mild pain relief when resting; however, she experiences sharp pain with her hand movements. The patient was placed in a short arm cast, custom made. The patient was educated on cast maintenance with instructions to keep the cast clean, dry, and intact. However, should the cast become wet, dirty, loose, or there is a concern please call the office immediately to be scheduled for a cast change as there's a high risk of infection with the pins in place. Sling may be used for comfort; however, she can come out to work on elbow range of motion. She was encouraged to continue finger range of motion. I anticipate that the edema on the dorsal aspect of the hand will continue to improve with the patient elevating her right upper extremity as instructed in the office today. She did educate her that the cast will become loose when the edema begins to subsides and she should contact the office as soon as possible for cast replacement. She was instructed not to lift, push or pull with her right upper extremity. Follow-up will be in 4 weeks with cast off and repeat x-rays, or sooner if needed. X-rays of the right upper extremity, which were obtained while in the office today and were reviewed by me, Liana Marcano PA-C, revealed: redemonstration of. mild displacement of distal radius fracture. X-rays of the right hand/wrist, obtained on 07/30/24, revealed: 1. Distal radial and ulnar fractures. 2. 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 Orders: Orders XR wrist RT min 3V Today M25.539 - Pain in unspecified wrist Patient Instructions: Scribed by Atiya Chris, medical chief technician, for Liana Marcano PA-C on 08/02/24 at 9:40 am EST. Coding Level of Care Code New Pt Level 4 (12945) Complex EM visit Add On G2211 Diagnoses Distal radius fracture, right S52.501A CPT Codes Casting - CPT: 78236-Twya/Wrist Cast Application ([id number])
== END 2024-08-02 09:42 | disposition home or self-care (01) ==
PROVIDERS: PCP Internal Medicine; Visit Provider Physician Assistant
DX: S52.501A Unspecified fracture of the lower end of right radius, initial encounter for closed fracture (principal)
CPT/HCPCS: 25600; 99204

== ENCOUNTER 2024-08-02 10:48 | Outpatient (REF) | payer MEDICARE, MEDICAID, SELFPAY ==
--- NOTE | ~2024-08-02 | XR_ITS ---
EXAMINATION: XR WRIST RIGHT CLINICAL INFORMATION: Pain in unspecified wrist M25.539. COMPARISON: XR Right hand wrist 07/30/2024 TECHNIQUE: PA, lateral, and oblique views of the right wrist. FINDINGS: Diffuse osteopenia. Nondisplaced slightly irregular transverse fracture of the distal metaphysis of the radius is identified. Findings are associated with possible minimal dorsal angulation of the distal component of the radius. Focal cortical irregularity of the distal ulnar metadiaphysis is present and is suspicious for a minimally displaced fracture. No erosive osseous lesions noted. Incidental note made of a small number of benign-appearing probable soft tissue phleboliths characterized by punctate well-circumscribed benign-appearing calcifications within the distal right forearm. Mild joint space narrowing and subchondral sclerosis of the first carpal metacarpal joint. XR/XR wrist RT min 3V IMPRESSION: *Minimally displaced fractures of the distal radial and ulnar metadiaphyses unchanged compared with findings noted on the comparison right hand radiographs 07/30/2024. *Mild osteoarthritis of the first carpometacarpal joint. Electronically signed by: Amadeo Haque MD 09/15/2024 09:21 AM ANKUR LUCIA
== END 2024-08-02 10:49 | disposition home or self-care (01) ==
LOC: HO.HOSX 10:48
PROVIDERS: Visit Provider Physician Assistant
DX: M25.531 Pain in right wrist (principal); S52.501A Unspecified fracture of the lower end of right radius, initial encounter for closed fracture
CPT/HCPCS: 25600; 73110; 99202

== ENCOUNTER 2024-08-18 08:17 | Outpatient (AMB) | payer MEDICARE, MEDICAID, SELFPAY ==
--- NOTE | 2024-08-18 08:33 | A.OFFPC_ITS ---
Vital Signs 08/18/24 08:35 Height 5 ft 6 in Weight 112 lb 6 oz BMI 18.1 BP 130/70 Blood Pressure Location Lt brachial Position Sitting Intake Visit Reasons: 3 month f/u Intake Note: Patient is here to follow up on DJD, OA, Insomnia. Requesting a letter for ramp to enter her house, letter of necessity for lift chair and FMLA form for nephew. Vessel Slag Worker Required: No Windows Server Specialist: Present Accompanied by: Daughter Allergies No Known Allergies Allergy (Verified 08/18/24 09:31) Medication List - Last Reconciled 08/18/24 by Galina Perez PA-C acetaminophen (Tylenol Extra Strength) 500 mg PO Q6H PRN [Ensure As directed 1 can twice daily ] hydroxyurea 500 mg PO DAILY hydroxyurea (Hydrea) 500 mg PO 1XD oxybutynin chloride 5 mg PO BID paroxetine HCl 20 mg PO DAILY [rolling walker with seat As directed] trazodone 50 mg PO BEDTIME Tobacco use date assessed: 08/18/24 Fall risk assessment: 1 Fall in past year (07/30/24) Last assessed Fall Risk: 08/18/24 Dental Screening Dental Screen Date: 11/05/23 Did you have a dental visit in the last 12 months?: No Did you have a dental problem in the last 6 months where you did not have access to dental care?: No Was dental information given to patient?: No [facility] Medical History Polycythemia vera Degenerative joint disease of cervical spine Urinary incontinence Constipation by delayed colonic transit Essential thrombocytosis Primary insomnia Surgical History History of colonoscopy (~06/01/17) S/P small bowel resection Family History Father No problems noted. Mother No problems noted. Son Addiction to drug Other No family history of cancer Social History Household Members: Family Housing: Apartment Are you a primary hospice spiritual care coordinator to a significant other at home: No Do you presently have visiting nurse or other home services: Yes (insurance [employer]) Alcohol intake: never Patient Tobacco Use Status: Former Tobacco user e-Cigarette/Vaping Use: Never Used Second Hand Smoke Exposure: Yes Advance Directives Date on File: 05/23/20 service: No Current occupational status: retired Cognitive needs: Yes (cane) Hearing needs: No Vision needs: Yes (glasses) Questionnaire PHQ-9 Over the last 2 weeks, how often have you been bothered by any of the following problems? 1. Little interest or pleasure in doing things: several days 2. Feeling down, depressed, or hopeless: several days 3. Trouble falling or staying asleep, or sleeping too much: several days 4. Feeling tired or having little energy: more than half the days 5. Poor appetite or overeating: several days 6. Feeling bad about yourself - or that you are a failure or have let yourself or your family down: not at all 7. Trouble concentrating on things, such as reading the newspaper or watching television: not at all 8. Moving or speaking so slowly that other people could have noticed. Or the opposite - being so fidgety or restless that you have been moving around a lot more than usual: not at all 9. Thoughts that you would be better off or of hurting yourself in some way: not at all Total score: 6 Depression Screening Interpretation: Positive Depression Screening Done: Yes Source: Developed by Drs. Carl Kelly, Alexia Bonilla, Israel Nayak and colleagues, with an educational yari from [employer]. Thrive Questionnaire Date Thrive assessed: 08/18/24 I am a: Patient What is your living situation today?: I have a steady place to live Within the past 12 months, did the food you bought not last and you didn't have the money to get more?: Never true Within the past 12 months, did you worry whether your food would run out before you got money to buy more?: Never true Do you have trouble paying for medicines?: No Do you have trouble getting transportation to medical appointments?: No Do you have trouble paying your heating and electricity bill?: No Do you have trouble taking care of your child, family member or friend?: No Do you have trouble with day-to-day activities such as bathing, preparing meals, shopping, managing finances, etc.?: No Are you currently unemployed and looking for a job?: No Are you interested in more education?: No Please select the resources that you would like help with: None Currently or been in a relationship where the following occur: No concerns repor misael THRIVE Score: 0 AUDIT C Alcohol Use Questionnaire (AUDIT-C) 1. How often do you have a drink containing alcohol?: Never Total Score: 0 CARMELO-7 AMB Questionnaire CARMELO-7 Date CARMELO - 7 assessed: 08/18/24 Feeling nervous, anxious, or on edge: 0 = Not at all Not being able to stop or control worryin = Not at all Worrying too much about different things: 0 = Not at all Trouble relaxin = Not at all Being so restless that it is hard to sit still: 0 = Not at all Becoming easily annoyed or irritable: 0 = Not at all Feeling afraid as if something awful might happen: 0 = Not at all Total CARMELO-7 score (0-4 normal; 5-9 mild; 10-14 moderate; 15-21 severe): 0 Source: Developed by Drs. Carl Kelly, Alexia Bonilla, Israel Nayak and colleagues, with an educational yari from [employer]. Physical exam (Primary Care) Vital Signs: Last Vital Signs BP 130/70 08/18/24 08:35 BMI result Body Mass Index 18.1 Tobacco/Smoking Status: Tobacco use Status Tobacco use date assessed 08/18/24 08/18/24 08:44 Patient Tobacco Use Status Former Tobacco user 08/18/24 08:44 e-Cigarette/Vaping Use Never Used 08/18/24 08:44 PHQ-9: PHQ-9 Score PHQ-9: Total score 6 08/18/24 08:44 Depression Screening Interpretation: Positive Thrive Assessment: Date of Thrive Assessment Date Thrive assessed 08/18/24 08/18/24 08:44 Currently or been in a relationship where the following occur: No concerns reported Coding Level of Care Code Est Pt Level 4 (61911) Complex EM visit Add On G2211 Diagnoses Distal radius fracture, right S52.501A Polycythemia vera D45 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 No abnormalities noted on exam. P jarrod has orthopedic follow-up. Patient is taking Tylenol for her pain which is providing symptomatic relief. This condition is stable. (2) Polycythemia vera: Code(s): D45 - Polycythemia vera Category: Medical Plan: Patient continues to have elevated white blood cell count last labs were on 08/11/2024 which revealed white blood cell count 29392. Condition is chronic and stable. Being followed by Dr. Durham Oncologist/hand assembler for puller over. (3) Intrinsic sphincter deficiency (ISD): Code(s): N36.42 - Intrinsic sphincter deficiency (ISD) Category: Medical Plan: Patient is currently wearing diaper/brief. Condition is stable. (4) ASHUTOSH (stress urinary incontinence, female): Code(s): N39.3 - Stress incontinence (female) (male) Category: Medical (5) Pelvic floor weakness: Code(s): N81.89 - Other female genital prolapse Category: Medical (6) Degenerative joint disease of cervical spine: Code(s): M47.812 - Spondylosis without myelopathy or radiculopathy, cervical region Category: Medical Plan: Condition is stable/chronic. Patient currently taking Tylenol for chronic pain. Will continue to monitor. (7) Urinary incontinence: Code(s): R32 - Unspecified urinary incontinence Category: Medical Plan: Patient is currently wearing diaper/brief. Patient will be started on oxybutynin 5 mg b.i.d.. Condition stable will continue to monitor. (8) Primary insomnia: Code(s): F51.01 - Primary insomnia Category: Medical Plan: Patient is currently on trazodone taking intermittently. Patient will restart to take it every night to help with her insomnia. Condition is chronic and stable. (9) Vaginal atrophy: Code(s): N95.2 - Postmenopausal atrophic vaginitis Category: Medical Plan: Patient is currently wearing diaper/brief. Patient will be started on oxybutynin 5 mg b.i.d.. Condition stable will continue to monitor. (10) Fecal soiling due to fecal incontinence: Code(s): R15.9 - Full incontinence of feces Category: Medical Plan: Condition is stable. Patient currently wearing brief. Will continue to monitor. (11) Depression: Code(s): F32.9 - Major depressive disorder, single episode, unspecified Category: Medical Plan: Patient abruptly discontinue paroxetine approximately 1 week ago. Instructed to restart paroxetine. Patient will restart paroxetine today. Condition is stable. Will continue to monitor. Plan Plan - Continue follow-up for wrist fracture healing under routine orthopedic evaluation. - Initiate oxybutynin for management of urinary incontinence. - Encourage a monitored restart of paroxetine to address mood stabilization. - Reinstitute trazodone to manage insomnia symptoms and enhance sleep quality. - Continue to follow up with oncologist Dr. Durham Evaluate regarding management of elevated white blood cell count, with consideration of past treatment with hydroxyurea. - Will send a request for chair lift and hand rails for safety in her apartment. Medications: New oxybutynin chloride 5 mg PO BID 60 tabs 2RF over active bladder Patient Instructions: Patient Instructions - Resume paroxetine as prescribed; do not stop abruptly in the future. - Start taking oxybutynin for urinary concerns as directed. - Take trazodone at bedtime as needed for sleep. - Continue to manage pain with acetaminophen. - Schedule and attend follow-up appointments for the wrist fracture. - Monitor for any increase in urinary symptoms or changes in mood. - Contact healthcare provider if side effects or new symptoms arise. Scribe Plan - Not visible on output: History of Present Illness The patient is an 88-year-old female presenting with a fall-related injury leading to a Right wrist fracture, observed approximately three weeks ago. She initially presented to the emergency room on July 30, where the fracture was diagnosed, and subsequently had a cast placement. She then followed up with [facility] on August 02 and a cast was placed. The patient was due for follow-up regarding the fracture's healing progress in 2 weeks with [facility]. In addition to the wrist fracture, the patient is experiencing ongoing challenges with urinary incontinence which have worsened and become a major issue. Patient currently wears a brief. There was a discussion of changes in medication management; the patient had discontinued paroxetine for depression due to side effects such as xerostomia and is currently off this medication despite the recommendation to avoid abrupt discontinuation due to potential adverse effects on mood and cognition. Insomnia is also a concern. The patient had previously been taking trazodone to aid sleep but ceased consumption five days prior due to transient improvement in sleep. However, the insomnia has re-emerged, prompting the potential consideration to restart trazodone. The patient is currently only taking acetaminophen for pain management associated with the wrist fracture and denies the use of opioid analgesics like oxycodone. Patient also has a history of thrombocythemia being followed by Dr. Durham. Dr. Durham explained to her that she should continue holding the hydroxyurea and she has a follow-up with Dr. Durham next month in September. The patient currently resides with her nephew and since the patient fell and sustained a right wrist/forearm fracture he has taken family leave since 08/02/2024 and will go back to work on 08/04/2024. She has paperwork for us to fill out. Her 2 daughters have been helping with bathing and dressing her. Her nephew helps her with everything else. She reports she already had a flu vaccine. She had a mammogram many years ago and is not interested in repeating a mammogram. She had her last colonoscopy in 2016 and is refusing any repeat of colonoscopy. She had a bone scan in April of 2022. She does not need any refills at this time. Patient daughter requesting hand rail and chair lift for her apartment. Social History - The patient resides with her nephew, who has taken leave from work to assist with her care. - The patient?s daughter and sister provide additional support in bathing and home care. - The patient lives at her nephew's residence and has assistance from family for daily needs. Review of Systems - Neurological: Denies any abnormalities, reports insomnia - Musculoskeletal: Reports wrist fracture with some improvement - Genitourinary: Reports exacerbated urinary incontinence Physical Exam Appearance: Alert. Oriented X3. No acute distress. Head: Normal external exam. Normocephalic. Atraumatic. Eyes: Pupils are equal, round, and reactive to light. Extraocular movements intact. Conjunctiva and sclera normal. Eyelids normal. Ears: Normal hearing Throat: Pharynx normal. Uvula midline. Moist mucous membranes.. Neck: Normal inspection. Neck supple. Full range of motion. No meningeal signs. Cardiovascular: Normal heart rate and rhythm. Pulses normal throughout. Respiratory: No respiratory distress. Painless inspiration. Breath sounds normal. No wheezes/rales/rhonchi noted. No accessory muscle usage noted. Back: Full range of motion noted. Skin: Skin warm and dry. Normal skin color. Normal skin turgor. No rashes/lesions/lacerations noted. Extremities: No lower extremity edema. Extremities exhibit normal range of motion. Extremities nontender. Right wrist in a cast due to fracture. Neuro: Oriented X 3. No motor deficit. No sensory deficit. Results - Labs: Elevated white blood cell count noted on August 11. - Imaging: Negative CT scan of the head and neck post-fall, showing no fractures on 07/30/24 Plan - Continue follow-up for wrist fracture healing under routine orthopedic evaluation. - Initiate oxybutynin for management of urinary incontinence. - Encourage a monitored restart of paroxetine to address mood stabilization. - Reinstitute trazodone to manage insomnia symptoms and enhance sleep quality. - Continue to follow up with oncologist Dr. Durham Evaluate regarding management of elevated white blood cell count, with consideration of past treatment with hydroxyurea. - Will send a request for chair lift and hand rails for safety in her apartment. Patient was informed and verbally consented to the use of an ambient scribe for clinic note documentation during this visit. Discussion Notes I discussed the management of the recent wrist fracture and the importance of orthopedic follow-ups to ensure proper healing. We addressed the urinary incontinence with plans to start oxybutynin and highlighted that its usage should be monitored for efficacy and side effects. Regarding depression, I advised against abrupt discontinuation of paroxetine due to risks of mood destabilization and discussed gradually resuming the regimen. For insomnia, I proposed restarting trazodone, evaluating its effectiveness in restoring restful sleep patterns. The patient was advised regarding the risks and benefits of these medications, including monitoring for side effects. We also reviewed the elevated white blood cell count; a plan for possible consultation with hematology was discussed. The importance of maintaining regular follow-ups for comprehensive care management was emphasized.
[2024-08-18 08:35] VITALS: BP 130/70; BMI 18.1
== END 2024-08-18 09:16 | disposition home or self-care (01) ==
PROVIDERS: PCP Internal Medicine; Visit Provider Internal Medicine
DX: S52.501A Unspecified fracture of the lower end of right radius, initial encounter for closed fracture (principal); D45 Polycythemia vera; N36.42 Intrinsic sphincter deficiency (ISD); N39.3 Stress incontinence (female) (male); N81.89 Other female genital prolapse; M47.812 Spondylosis without myelopathy or radiculopathy, cervical region; R32 Unspecified urinary incontinence; F51.01 Primary insomnia; N95.2 Postmenopausal atrophic vaginitis; R15.9 Full incontinence of feces; F32.9 Major depressive disorder, single episode, unspecified

== ENCOUNTER → 2024-08-18 08:17 | Outpatient (BNVA) | payer MEDICARE, MEDICAID, SELFPAY | PROVIDERS: PCP Internal Medicine; Visit Provider Internal Medicine | DX: S52.501D Unspecified fracture of the lower end of right radius, subsequent encounter for closed fracture with routine healing (principal); D45 Polycythemia vera; N36.42 Intrinsic sphincter deficiency (ISD); N39.3 Stress incontinence (female) (male); N81.89 Other female genital prolapse; M47.812 Spondylosis without myelopathy or radiculopathy, cervical region; R21 Rash and other nonspecific skin eruption; F51.01 Primary insomnia; N95.2 Postmenopausal atrophic vaginitis; R15.9 Full incontinence of feces; F32.9 Major depressive disorder, single episode, unspecified | CPT/HCPCS: 96127; 99212 ==

== ENCOUNTER 2024-08-30 07:58 | Outpatient (REF) | payer MEDICARE, MEDICAID, SELFPAY ==
--- NOTE | ~2024-08-30 | XR_ITS ---
CLINICAL HISTORY: M25.539 - Pain in unspecified wrist 3 view right wrist Comparison: None Findings: Impacted distal radial and ulnar metaphyseal fractures without significant angulation. Evidence of intra-articular extension. Periosteal reaction suggesting either acute on chronic fracture or subacute fracture. The ulnar styloid fracture appears acute. Bones are osteopenic. Degenerative changes at the base of the thumb. No radiopaque foreign body. IMPRESSION: 1. Impacted distal radial and ulnar metaphyseal fractures. The appearance suggests possibly an acute on chronic fracture. Osteopenia. This document has been electronically signed by: Daniela Aleman MD on 09/01/2024 05:26:08
== END 2024-08-30 07:59 | disposition home or self-care (01) ==
LOC: HO.HOSX 07:58
PROVIDERS: Visit Provider Physician Assistant
DX: S52.571D Other intraarticular fracture of lower end of right radius, subsequent encounter for closed fracture with routine healing (principal); S52.291D Other fracture of shaft of right ulna, subsequent encounter for closed fracture with routine healing; M25.531 Pain in right wrist
CPT/HCPCS: 73110; 99212

== ENCOUNTER 2024-08-30 13:35 | Outpatient (AMB) | payer MEDICARE, MEDICAID, SELFPAY ==
--- NOTE | 2024-08-30 14:01 | A.OFFVIS_ITS ---
Vital Signs 08/30/24 14:14 Height 5 ft 6 in Weight 112 lb BMI 18.1 Handedness Right Intake Visit Reasons: OV-RT distal radius fx DOI 07/30/24-w/xray Intake Note: Cholo is a 89 year old right hand dominant female who presents today for a follow up of her right distal radius fx, DOI 07/30/24. She reports she is doing well. She states having little to now pain when she got out of the cast. Patient mentions having off and on muscle spasms. Allergies No Known Allergies Allergy (Verified 08/30/24 14:14) HPI HPI OV-RT distal radius fx DOI 07/30/24-w/xray: Details: Patient presents to the office today for routine follow-up status post right distal radius fracture. Date of injury was 07/30/2024. At her last appointment she was placed into a short-arm cast. Patient has been able to keep a cast clean dry and intact. She reports no pain. No additional complaints. [facility] Medical History Polycythemia vera Degenerative joint disease of cervical spine Urinary incontinence Constipation by delayed colonic transit Essential thrombocytosis Primary insomnia Surgical History History of colonoscopy (~06/01/17) S/P small bowel resection Family History Father No problems noted. Mother No problems noted. Son Addiction to drug Other No family history of cancer Social History Household Members: Family Housing: Apartment Are you a primary career development director to a significant other at home: No Do you presently have visiting nurse or other home services: Yes (insurance company) Alcohol intake: never Patient Tobacco Use Status: Former Tobacco user e-Cigarette/Vaping Use: Never Used Second Hand Smoke Exposure: Yes Advance Directives Date on File: 05/23/20 service: No Current occupational status: retired Cognitive needs: Yes (cane) Hearing needs: No Vision needs: Yes (glasses) Review of Systems Const All systems reviewed & are unremarkable except as noted in HPI and below Physical Exam Vital Signs: BMI result Body Mass Index 18.1 Const General: cooperative, healthy appearing and no acute distress Resp Effort & Inspection: normal respiratory effort and able to speak in complete sentences Cardio Rate: regular rate Peripheral pulses: Peripheral pulses 2+ throughout Skin Lesions: no lesions Rashes: no rashes Extrem Other: Right wrist normal to inspection no ecchymosis, or edema. Able to slightly flex and extend at the wrist but is limited due to pain and stiffness. Able to make a closed fist and extend all digits. NVI. Assessment & Plan Assessment & Plan (1) Distal radius fracture, right: Code(s): S52.501A - Unspecified fracture of the lower end of right radius, initial encounter for closed fracture Category: Medical Plan ErlinLewis Raygoza his an 89-year-old right-hand dominant female who presents to the office today for routine follow-up status post right distal radius fracture. Date of injury was 07/30/2024. At her last appointment she was placed into a short-arm cast. Patient has been able to keep a cast clean dry and intact. She reports no pain. No additional complaints. I have placed the patient into a Velcro wrist splint at this time and have made a referral to occupational therapy to work on gentle range of motion. Patient should remain in the focal wrist splint and treat as a cast at all times. I advised the patient that she should avoid any lifting pushing or pulling with the right upper extremity. Follow up with Orthopedics will be in 4 weeks with repeat x-rays, sooner if needed. X-rays obtained in the in the office today of the right wrist were reviewed by me and reveal routine healing right distal radius fracture. Orders: Orders XR wrist RT min 3V Today M25.539 - Pain in unspecified wrist Coding Level of Care Code Global (30612) Diagnoses Distal radius fracture, right S52.501A
[2024-08-30 14:14] VITALS: BMI 18.1
== END 2024-08-30 14:22 | disposition home or self-care (01) ==
PROVIDERS: PCP Internal Medicine; Visit Provider Physician Assistant
DX: S52.501A Unspecified fracture of the lower end of right radius, initial encounter for closed fracture (principal)
CPT/HCPCS: 99024

== ENCOUNTER 2024-10-07 09:36 | Outpatient (REF) | payer MEDICARE, MEDICAID, SELFPAY ==
--- NOTE | ~2024-10-07 | XR_ITS ---
EXAMINATION: XR WRIST 3 OR MORE VIEWS RIGHT HISTORY: M25.539 - Pain in unspecified wrist COMPARISON: Comparison is made with the prior examination dated 08/30/2024. FINDINGS: Three views of the right wrist are submitted. The bones are osteopenic. Again seen are transverse fractures through the distal radial and ulnar metaphyses. The fracture lines are less visible, consistent with healing. The joint spaces are preserved. The soft tissues are unremarkable. XR/XR wrist RT min 3V IMPRESSION: Osteopenia. Healing transverse fractures of the distal radial and ulnar metaphyses. Electronically signed by: Carl Addison MD 10/11/2024 08:00 AM [facility]
== END 2024-10-07 09:37 | disposition home or self-care (01) ==
LOC: HO.HOSX 09:36
PROVIDERS: Visit Provider Physician Assistant
DX: M25.531 Pain in right wrist (principal); M25.511 Pain in right shoulder; S52.501A Unspecified fracture of the lower end of right radius, initial encounter for closed fracture
CPT/HCPCS: 20610; 73110; 99212; J1010; J2003

== ENCOUNTER 2024-10-07 12:19 | Outpatient (AMB) | payer MEDICARE, MEDICAID, SELFPAY ==
--- NOTE | 2024-10-07 12:55 | MHC.OFFVIS ---
Intake Visit Reasons: OV-RT distal radius fx DOI 07/30/24 Intake Note: Cholo is a 89 year old right hand dominant female who presents today with her daughter for a follow up of her right distal radius fx, DOI 07/30/24. She reports she is doing well. Patient is having pain in her right shoulder but she doesn't want to be seen for her shoulder yet. Allergies No Known Allergies Allergy (Verified 10/07/24 12:58) HPI HPI OV-RT distal radius fx DOI 07/30/24: Details: Ms. Raygoza in an 89-year-old female who presents to the office today for routine follow-up status post right distal radius fracture. Date of injury was 07/30/2024. At her last appointment on 08/30/2024 the patient was told to remain in the Velcro wrist splint and to work with occupational therapy on range of motion. Unfortunately, the patient did not attend any occupational therapy. Additionally, the patient also reports that she has been having right shoulder pain for the past few months has gradually been getting worse. She is interested in a shoulder injection. [facility] Medical History Polycythemia vera Degenerative joint disease of cervical spine Urinary incontinence Constipation by delayed colonic transit Essential thrombocytosis Primary insomnia Surgical History History of colonoscopy (~06/01/17) S/P small bowel resection Family History Father No problems noted. Mother No problems noted. 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[employer]) Alcohol intake: never Patient Tobacco Use Status: Former Tobacco user e-Cigarette/Vaping Use: Never Used Second Hand Smoke Exposure: Yes Advance Directives Date on File: 05/23/20 service: No Current occupational status: retired Cognitive needs: Yes (cane) Hearing needs: No Vision needs: Yes (glasses) Review of Systems Const All systems reviewed & are unremarkable except as noted in HPI and below Physical Exam Const General: cooperative, healthy appearing and no acute distress Resp Effort & Inspection: normal respiratory effort and able to speak in complete sentences Cardio Rate: regular rate Peripheral pulses: Peripheral pulses 2+ throughout Skin Lesions: no lesions Rashes: no rashes Extrem Other: Right wrist normal to inspection no ecchymosis, or edema. Able to slightly flex and extend at the wrist but is limited due to pain and stiffness. Able to make a closed fist and extend all digits. NVI. Right shoulder 90 degrees forward flexion abduction external rotation to neutral. NVI. Assessment & Plan Assessment & Plan (1) Distal radius fracture, right: Code(s): S52.501A - Unspecified fracture of the lower end of right radius, initial encounter for closed fracture Category: Medical (2) Right shoulder pain: Code(s): M25.511 - Pain in right shoulder Category: Medical Plan Ms. Raygoza in an 89-year-old female who presents to the office today for routine follow-up status post right distal radius fracture. Date of injury was 07/30/2024. At her last appointment on 08/30/2024 the patient was told to remain in the Velcro wrist splint and to work with occupational therapy on range of motion. Unfortunately, the patient did not attend any occupational therapy. Additionally, the patient also reports that she has been having right shoulder pain for the past few months has gradually been getting worse. She is interested in a shoulder injection. While in the office today, the patient presented without her Velcro wrist splint. She will return back to normal activities as tolerated. In regards to her right shoulder I did offer the patient a cortisone injection which he has consented to move forward with stay. The patient was offered a cortisone injection in the right shoulder with 80 mg of DepoMedrol. The patient was explained the risks, benefits, and alternatives to receiving this injection. After receiving consent for the injection, the patient had the procedure done while in the office today. The patient tolerated the procedure well with no complications. Follow-up will be p.r.n., or sooner if needed X-rays of the right wrist which were obtained while in the office today and were reviewed by me, Liana Marcano PA-C, revealed healed distal radius fracture. Orders: Orders XR wrist RT min 3V Today M25.539 - Pain in unspecified wrist Coding Level of Care Code Est Pt Level 4 (01346) Diagnoses Distal radius fracture, right S52.501A Right shoulder pain M25.511
--- OUTSIDE RECORDS SUMMARY | 2024-10-07 13:01 | XMS_ITS | Patient Health Record ---
Author Organization [facility] Address [address] [place] [address] Care Team Providers Care Cell Manager Name Role Phone CHARLOTTE RIVERA Primary Care Provider Carl White Unavailable [phone] Ed Durham Unavailable Unavailable ALLERGIES No Known Allergies REASON FOR REFERRAL No Information MEDICATIONS Medication SIG (Take, Route, Fr equency, Duration) Notes Start Date End Date Status PARoxetine HCl 20 MG 1/2 tablet Orally O nce a day/prn Active Omeprazole 20 MG 1 PO QAM for 30 day(s) 05/23/2021 Active traZODone HCl 50 MG Oral for 90 Active Aspir-81 81 MG 1 tablet Orally Once a day Active Fish Oil Active Hydroxyurea 500 MG cap Orally once a day Active IMMUNIZATIONS Vaccine Route Administration Date Status Comme nts Flu vaccine no Preserv 3 and > Unknown 05/31/2014 Admin istered Influenza Unknown 05/17/2016 Administered Influenza Unknown 04/17/2017 Administered Influenza Unknown 05/17/2021 Administered SOCIAL HISTORY Sex Assigned At : Social History Observation Description Sex Assigned At Unknown PROBLEMS Problem Type ICD Code Onset Dates Problem Status W/U Status Risk SNOMED Code Notes Problem Acute pancreatitis, unspecified (K85.9) Active confirmed 18191569271442 Problem Abdominal distension (gaseous) (R14.0) Active confirmed 298300529 Problem Anorexia (R63.0) Active confirmed 63421 006 Problem Microscopic colitis (K52.89) Active confirmed 945238595 Problem Constipation, unspecified constipation type (K59.00) Active confirmed 65388027 Problem Right upper quadrant abdominal pain (R10.11) Active confirmed 940615702 Problem Abdominal pain, generalized (R10.84) Active confirmed 889666085 Problem Other irritable bowel syndrome (K58.8) Active confirmed 92757571 Problem Incontinence of feces, unspecified fecal incontinence type (R15.9) Active confirmed 94708754 PLAN OF TREATMENT Pending Test Test Name Order Date NUC HIDA SCAN 05/15/2017 Future Test Test Name Order Date COLONOSCOPY 03/07/2014 UPPER GI ENDOSCOPY 05/15/2017 Insurance Providers Payer Name Payer Address Payer Phone Subscriber Number Group Number Insured Name Patient Relationship to Insured Coverage Start Date Coverage End Date [facility] [address] [address] [place] [address] [id number] CONI OBRIEN Self - patient is the insured MEDICAID OF [facility] [address] [place] [address] [id number] CONI OBRIEN Self - patient is the insured MEDICAL (GENERAL) HISTORY Medical History History ICD Code Thrombocytosis--sees Dr. 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 Normal thyroid studies in 11/2013 Colonoscopy 07/2014--microsc opic colitis on biopsies--no polyps, sigmoid diverticulosis, internal hemorrhoids Acute pancreatitis in 2014--she had a lipase of over 12,000 and a CAT scan consistent with pancreatitis, but without any sign of mass nor biliary disease--a gallbladder ultrasound showed some sludge in the gallbladder, but was otherwise unremarkable--there was no evidence of biliary disease--her LFTs on admission were normal urinary incontinence EGD [id number] duodenal and g astric biopsies Neg CT in 2019 except for constipation-- no acute issues Surgical History Surgery Date(Month/Year) Cecal volvulus with right colectomy in [address] Banegas
== END 2024-10-07 14:53 | disposition home or self-care (01) ==
PROVIDERS: PCP Internal Medicine; Visit Provider Physician Assistant
DX: S52.501A Unspecified fracture of the lower end of right radius, initial encounter for closed fracture (principal); M25.511 Pain in right shoulder
CPT/HCPCS: 20610; 99214

== ENCOUNTER → 2024-10-07 12:41 | Outpatient (BNV) | payer MEDICARE, MEDICAID, SELFPAY | PROVIDERS: Visit Provider Radiology Diagnostic Radiology | DX: M25.531 Pain in right wrist (principal) | CPT/HCPCS: 73110 ==

== ENCOUNTER 2024-11-24 07:51 | Outpatient (AMB) | payer MEDICARE, MEDICAID, SELFPAY ==
--- OUTSIDE RECORDS SUMMARY | 2024-11-24 07:55 | XMS_ITS | Patient Health Record ---
Author Organization [facility] Address [address] [place] [address] Care Team Providers Care Family Protection Specialist Name Role Phone CHARLOTTE RIVERA Primary Care Provider Carl White Unavailable [phone] Ed Durham Unavailable Unavailable Allergies No Known Allergies Reason For Referral No Information Medications Medication SIG (Take, Route, Fr equency, Duration) [...] MG cap Orally once a day Active Immunizations Vaccine Route Administration Date Status Comme nts Flu vaccine no Preserv 3 and > Unknown 05/31/2014 Admin istered Influenza Unknown 05/17/2016 Administered Influenza Unknown 04/17/2017 Administered Influenza Unknown 05/17/2021 Administered Problems Problem Type SNOMED Code ICD Code Onset Dates Problem Status W/U Status Risk Notes Problem 92860986445488 Acute pancreatitis, unspecified (K85.9) Active confirmed Problem 121646458 Abdominal distension (gaseous) (R14.0) Active confirmed Problem 76810859 Anorexia (R63.0) Active confirmed Problem 923844678 Microscopic colitis (K52.89) Active confirmed Problem 34172325 Constipation, unspecified constipation type (K59.00) Active confirmed Problem 797169799 Right upper quadrant abdominal pain (R10.11) Active confirmed Problem 088460486 Abdominal pain, generalized (R10.84) Active confirmed Problem 27755819 Other irritable bowel syndrome (K58.8) Active confirmed Problem 03181402 Incontinence of feces, unspecified fecal incontinence type (R15.9) Active confirmed Plan Of Treatment Pending Test Test Name Order Date NUC HIDA SCAN 05/15/2017 Future Test Test Name Order Date COLONOSCOPY 03/07/2014 UPPER GI ENDOSCOPY 05/15/2017 Insurance Providers Payer Name Payer Address Payer Phone Subscriber Number Group Number Insured Name Patient Relationship to Insured Coverage Start Date Coverage End Date [facility] [address] [address] [place] [address] [id number] CONI OBRIEN Self - patient is the insured MEDICAID OF [facility] [address] [place] [address] [id number] CONI OBRIEN Self - patient is the insured Medical (General) History Medical History History ICD Code Thrombocytosis--sees Dr. Durham Upper endoscopy 2008-- Gastritis-- bx ne g for H.pylori Anxiety Denies [place],DM,CVA,Lung disease,renal dise ase IBS with previous constipation [...] on admission were normal urinary incontinence EGD [id number] duodenal and g astric biopsies Neg CT in 2019 except for constipation-- no acute issues Surgical History Surgery Date(Month/Year) Cecal volvulus with right colectomy in [address] Banegas
--- NOTE | 2024-11-24 08:05 | MHC.PC.OV ---
Vital Signs 11/24/24 08:08 Height 5 ft 8 in Weight 115 lb 6 oz BMI 17.5 BP 110/64 Blood Pressure Location Lt brachial Position Sitting Pulse 85 Pulse Source Pulse Oximeter Temp 94.1 F L Temp Source Temporal Artery Scan Pulse Oximetry (%) 98 Oxygen Delivery Method Room Air Intake Visit Reasons: 3 Month F/U Intake Note: Patient is here to follow up on DJD Insomnory. Inserter Promotional Item Required: No Land Survey Technician: Present Accompanied by: Daughter Allergies No Known Allergies Allergy (Verified 11/24/24 08:32) Medication List - Last Reconciled 11/24/24 by Jostin Sanders MD acetaminophen (Tylenol Extra Strength) 500 mg PO Q6H PRN [Ensure As directed 1 can twice daily ] [hand rails for bathroom As directed] [lift recliner As directed] oxybutynin chloride 5 mg PO BID paroxetine HCl 20 mg PO DAILY [rolling walker with seat As directed] trazodone 50 mg PO BEDTIME Tobacco use date assessed: 11/24/24 Fall risk assessment: 1 Fall in past year Last assessed Fall Risk: 11/24/24 Dental Screening Dental Screen Date: 11/24/24 Did you have a dental visit in the last 12 months?: No Did you have a dental problem in the last 6 months where you did not have access to dental care?: No Was dental information given to patient?: No [facility] Medical History (Updated 11/24/24 @ 08:34 by Jostin Sanders MD) Fecal incontinence Osteoarthritis of right shoulder Polycythemia vera Degenerative joint disease of cervical spine Urinary incontinence Constipation by delayed colonic transit Essential thrombocytosis Primary insomnia Surgical History History of colonoscopy (~06/01/17) S/P small bowel resection Family History Father No problems noted. Mother No problems noted. Son Addiction to drug Other No family history of cancer Social History Household Members: Family Housing: Apartment Are you a primary child care supervisor to a significant other at home: No Do you presently have visiting nurse or other home services: Yes (insurance company) Alcohol intake: never Patient Tobacco Use Status: Former Tobacco user e-Cigarette/Vaping Use: Never Used Second Hand Smoke Exposure: Yes Advance Directives Date on File: 05/23/20 service: No Current occupational status: retired Cognitive needs: Yes (cane) Hearing needs: No Vision needs: Yes (glasses) Questionnaire Thrive Questionnaire Date Thrive assessed: 08/18/24 Currently or been in a relationship where the following occur: No concerns reported THRIVE Score: 0 CARMELO-7 AMB Questionnaire CARMELO-7 Date CARMELO - 7 assessed: 08/18/24 Source: Developed by Drs. Carl Kelly, Alexia Bonilla, Israel Nayak and colleagues, with an educational yari from [employer]. Physical exam (Primary Care) Vital Signs: Last Vital Signs Temp 94.1 F L 11/24/24 08:08 Pulse 85 11/24/24 08:08 BP 110/64 11/24/24 08:08 Pulse Ox 98 11/24/24 08:08 Oxygen Delivery Method Room Air 11/24/24 08:08 Care Plan Goal for BP management: Blood pressure is in range. BMI result Body Mass Index 17.5 Tobacco/Smoking Status: Tobacco use Status Tobacco use date assessed 11/24/24 11/24/24 08:11 Patient Tobacco Use Status Former Tobacco user 11/24/24 08:07 e-Cigarette/Vaping Use Never Used 11/24/24 08:07 Thrive Assessment: Date of Thrive Assessment Date Thrive assessed 08/18/24 11/24/24 08:07 Currently or been in a relationship where the following occur: No concerns reported Advance Care Planning discussion: Exists, not on file Date of discussion: 11/24/24 Who was present: Patient, daughter Forms completed: Health Care Proxy Time spent: 1-15 minutes, not on file Actual minutes spent: 5 Coding Level of Care Code Est Pt Level 4 (22740) Complex EM visit Add On G2211 Diagnoses Urinary incontinence R32 Essential thrombocytosis D47.3 Osteoarthritis of right shoulder M19.011 Fecal incontinence R15.9 Additional Codes Vital Signs *Quality* - Advance Care Planning discussion: Exists, not on file ([id number]) Vital Signs *Quality* - Time spent: 1-15 minutes, not on file ([id number]) Assessment & Plan Assessment & Plan (1) Urinary incontinence: Code(s): R32 - Unspecified urinary incontinence Category: Medical Plan: Patient urged to take the oxybutynin prescribed. (2) Essential thrombocytosis: Code(s): D47.3 - Essential (hemorrhagic) thrombocythemia Category: Medical Plan: Condition is stable. Currently on no medications. (3) Osteoarthritis of right shoulder: Code(s): M19.011 - Primary osteoarthritis, right shoulder Category: Medical Plan: Patient willing to consider another steroid injection. Orthopedic consult placed. (4) Fecal incontinence: Code(s): R15.9 - Full incontinence of feces Category: Medical Plan: Patient refuses to see a systems management consultant. Plan History of Present Illness The patient is an 89-year-old female presenting with issues of urinary and fecal incontinence, shoulder pain, and generalized weakness. Urinary incontinence has been a longstanding issue for which oxybutynin was prescribed, but the patient was initially unsure of its benefits. She is planning to resume this treatment. Fecal incontinence also affects her daily routine, with no effective treatment after consultation with specialists. Chronic left shoulder pain, attributed to a subluxation, temporarily improved following corticosteroid injection, and the patient considers receiving another injection for relief. The patient experiences marked lower limb weakness and balance problems, resulting in a dependence on a walker and familial support for mobility. A previous high white blood cell count is now resolved, and she presents with a chronic cough, although it?s deemed manageable. The patient's conditions affect her daily life, and she has shown reticence in pursuing aggressive further interventions due to her age. Social History - Lives with brother and nephew. - Recently retired, supported in daily activities by family members. - Uses a walker for mobility assistance and experiences issues with balance. - Appetite changes noted, with preference for sweets. - Family has ensured living arrangements include adequate safety features, such as a handrail for the stairs. Review of Systems - Genitourinary: Reports urinary incontinence. - Gastrointestinal: Reports fecal incontinence. - Musculoskeletal: Reports left shoulder pain and lower limb weakness. - General: Reports fatigue and a chronic cough. - Neurological: Reports balance difficulties. Physical Exam General: Cooperative and healthy appearing Nutritional Appearance: Well nourished Orientation/consciousness: Patient oriented x3 Limitations: No limitations Head: Normal to inspection General: Appearance normal, both eyes and all related structures Neck: Normal visual inspection Chest: Normal palpation of entire chest wall Respiratory: Patient reports frequent coughing but is managing. ormal respiratory effort Neurology: Patient oriented x3, but reports balance issues and legs giving out. Uses a walker and occasionally a cane for support. Results - Labs: High white blood cell count noted previously, now resolved. Plan I plan for the patient to continue oxybutynin for urinary management at twice daily dosing. For persistent shoulder pain, I will facilitate a follow up for the corticosteroid injection. There's no alteration for fecal incontinence due to limited options based on prior consultations. We should maintain current strategies for managing chronic cough and acknowledge resolved white blood cell issues. Emphasis will remain on continued use of walker and familial support to enhance mobility and daily activity management. Patient was informed and verbally consented to the use of an ambient scribe for clinic note documentation during this visit. Discussion Notes I discussed with the patient and her family the importance of medication adherence for oxybutynin to manage urinary incontinence effectively. We talked about previous shoulder injections, with consensus on the benefits seen and plans to arrange another orthopedic consultation for repeated treatment. The family is aware of the need for safe mobility aides like a walker. We reviewed the resolved state of her previously elevated white blood cell count, and the chronic cough which remains manageable. Emphasis was placed on monitoring her general health and the support of family in maintaining her daily activities through safe practices like installing a handrail which is pending a formal request letter. Patient Instructions - Continue taking oxybutynin medication twice daily as prescribed. - Plan to receive another corticosteroid injection for shoulder pain. - Use a walker consistently for better balance and support. - Work with family to install a safety handrail on stairs for better mobility. - Follow up with healthcare provider regarding any changes or worsening of symptoms. - Be mindful of dietary choices, aiming for balanced meals. - Consult family and healthcare provider for any concerns or changes in health status. Medications: Refilled [Ensure] As directed 1 can twice daily 1 ea 0RF
[2024-11-24 08:08] VITALS: BP 110/64; PULSE 85; TEMP 34.5; O2SAT 98; BMI 17.5
== END 2024-11-24 08:32 | disposition home or self-care (01) ==
LOC: HO.HMCH 07:51
PROVIDERS: PCP Internal Medicine; Visit Provider Internal Medicine
DX: R32 Unspecified urinary incontinence (principal); D47.3 Essential (hemorrhagic) thrombocythemia; M19.011 Primary osteoarthritis, right shoulder; R15.9 Full incontinence of feces; Z00.00 Encounter for general adult medical examination without abnormal findings

== ENCOUNTER → 2024-11-24 07:51 | Outpatient (BNVA) | payer MEDICARE, MEDICAID, SELFPAY | PROVIDERS: PCP Internal Medicine; Visit Provider Internal Medicine | DX: R32 Unspecified urinary incontinence (principal); D47.3 Essential (hemorrhagic) thrombocythemia; M19.011 Primary osteoarthritis, right shoulder; R15.9 Full incontinence of feces | CPT/HCPCS: 99212 ==

== ENCOUNTER 2024-12-09 10:15 | Outpatient (AMB) | payer MEDICARE, MEDICAID, SELFPAY ==
--- NOTE | 2024-12-09 10:22 | MHC.OFFVIS ---
Intake Visit Reasons: OV- Primary osteoarthritis, right shoulder INJ Allergies No Known Allergies Allergy (Verified 11/24/24 08:32) HPI HPI OV- Primary osteoarthritis, right shoulder INJ: Details: Ms. Raygoza is an 89-year-old female who presents to the office today for repeat right shoulder cortisone injection. [facility] Medical History (Updated 11/24/24 @ 08:34 by Jostin Sanders MD) Fecal incontinence Osteoarthritis of right shoulder Polycythemia vera Degenerative joint disease of cervical spine Urinary incontinence Constipation by delayed colonic transit Essential thrombocytosis Primary insomnia Surgical History History of colonoscopy (~06/01/17) S/P small bowel resection Family History Father No problems noted. Mother No problems noted. Son Addiction to drug Other No family history of cancer Social History Household Members: Family Housing: Apartment Are you a primary patient care associate to a significant other at home: No Do you presently have visiting nurse or other home services: Yes (insurance company) Alcohol intake: never Patient Tobacco Use Status: Former Tobacco user e-Cigarette/Vaping Use: Never Used Second Hand Smoke Exposure: Yes Advance Directives Date on File: 05/23/20 service: No Current occupational status: retired Cognitive needs: Yes (cane) Hearing needs: No Vision needs: Yes (glasses) Review of Systems Const All systems reviewed & are unremarkable except as noted in HPI and below Physical Exam Const General: cooperative, healthy appearing and no acute distress Resp Effort & Inspection: normal respiratory effort and able to speak in complete sentences Cardio Rate: regular rate Peripheral pulses: Peripheral pulses 2+ throughout Skin Lesions: no lesions Rashes: no rashes Extrem Other: Right shoulder 90 degrees forward flexion abduction external rotation to neutral. NVI. Office Procedures AMB Joint Injection/Aspiration Joint Injection/Aspiration Primary Site: right shoulder Prep: site was prepped using aseptic technique, ethochloride spray was applied and injection warnings given Injected: 80 mg of, DepoMedrol, with 8 mL of (2% plain lido ) and in the subcromial space Approach Used: posterolateral Procedure: The patient tolerated the procedure well, but had some pain with the injection and there was some relief with the local anesthesia Coding 41110 - Large joint Procedure code (CPT) selection complete Assessment & Plan Assessment & Plan (1) Osteoarthritis of right shoulder: Code(s): M19.011 - Primary osteoarthritis, right shoulder Category: Medical Plan The patient was offered a cortisone injection in the right shoulder with 80 mg of DepoMedrol. The patient was explained the risks, benefits, and alternatives to receiving this injection. After receiving consent for the injection, the patient had the procedure done while in the office today. The patient tolerated the procedure well with no complications. Follow-up will be p.r.n., or sooner if needed Coding Level of Care Code Est Pt Level 3 (60701) Diagnoses Osteoarthritis of right shoulder M19.011 CPT Codes Coding - 56456 Large joint: 29630 - Large joint ([id number])
== END 2024-12-09 10:39 | disposition home or self-care (01) ==
LOC: HO.HOS 10:16
PROVIDERS: PCP Internal Medicine; Visit Provider Physician Assistant
DX: M19.011 Primary osteoarthritis, right shoulder (principal)
CPT/HCPCS: 20610; 99213

== ENCOUNTER → 2024-12-09 10:15 | Outpatient (BNVA) | payer MEDICARE, MEDICAID, SELFPAY | PROVIDERS: PCP Internal Medicine; Visit Provider Physician Assistant | DX: M19.011 Primary osteoarthritis, right shoulder (principal) | CPT/HCPCS: 20610; 99212; J1010; J2003 ==

== ENCOUNTER 2025-02-23 09:13 | Outpatient (AMB) | payer MEDICARE, MEDICAID, SELFPAY ==
--- OUTSIDE RECORDS SUMMARY | 2025-02-23 09:39 | XMS_ITS | Patient Health Record ---
Author Organization [facility] Address [address] [place] [address] Care Team Providers Care Cycle Director Name Role Phone CHARLOTTE RIVERA Primary Care Provider Carl White Unavailable [phone] Ed Durham Unavailable Unavailable Allergies No Known [...] Problem Status W/U Status Risk Notes Problem [id number] Acute pancreatitis, unspecified (K85.9) Active confirmed Problem 478502220 Abdominal distension (gaseous) (R14.0) Active confirmed Problem 65110752 Anorexia (R63.0) Active confirmed Problem 300271755 Microscopic colitis (K52.89) Active confirmed Problem 76193548 Constipation, unspecified constipation type (K59.00) Active confirmed Problem 218412078 Right upper quadrant abdominal pain (R10.11) Active confirmed Problem 571003677 Abdominal pain, generalized (R10.84) Active confirmed Problem 61917548 Other irritable bowel syndrome (K58.8) Active confirmed Problem 62976022 Incontinence of feces, unspecified fecal incontinence type (R15.9) Active confirmed Plan Of Treatment Pending Test Test Name Order Date NUC HIDA SCAN 05/15/2017 Future Test Test Name Order Date COLONOSCOPY 03/07/2014 UPPER GI ENDOSCOPY 05/15/2017 Insurance Providers Payer Name Payer Address Payer Phone Subscriber Number Group Number Insured Name Patient Relationship to Insured Coverage Start Date Coverage End Date [facility] [address] [address] [place] [address] [id number] CONI OBRIEN Self - patient is the insured MEDICAID OF [facility] [address] [place] [address] [id number] CONI OBRIEN Self - patient is the insured Medical (General) History Medical History History ICD Code Thrombocytosis--sees Dr. Durham Upper endoscopy 2008-- Gastritis-- bx ne g for H.pylori Anxiety Denies PR,DM,CVA,Lung disease,renal dise ase IBS with previous constipation [...] on admission were normal urinary incontinence EGD [id number] duodenal and g astric biopsies Neg CT in 2019 except for constipation-- no acute issues Surgical History Surgery Date(Month/Year) Cecal volvulus with right colectomy in [address] Banegas
[2025-02-23 09:40] VITALS: BP 110/56; PULSE 83; TEMP 36.2; O2SAT 96; BMI 17.0
--- NOTE | 2025-02-23 09:40 | A.OFFPC_ITS ---
Vital Signs 02/23/25 09:40 Height 5 ft 8 in Weight 112 lb BMI 17.0 BP 110/56 L Blood Pressure Location Lt brachial Position Sitting Pulse 83 Pulse Source Pulse Oximeter Temp 97.1 F Temp Source Temporal Artery Scan Pulse Oximetry (%) 96 Oxygen Delivery Method Room Air Intake Visit Reasons: 3mth f/u Physician Credentialing Specialist Required: No Accompanied by: Self / Same As Patient Allergies No Known Allergies Allergy (Verified 02/23/25 09:45) Tobacco use date assessed: 11/24/24 Fall risk assessment: No Falls in past year Last assessed Fall Risk: 02/23/25 Dental Screening Dental Screen Date: 11/24/24 [facility] Medical History Fecal incontinence Osteoarthritis of right shoulder Polycythemia vera Degenerative joint disease of cervical spine Urinary incontinence Constipation by delayed colonic transit Essential thrombocytosis Primary insomnia Surgical History History of colonoscopy (~06/01/17) S/P small bowel resection Family History Father No problems noted. Mother No problems noted. Son Addiction to drug Other No family history of cancer Social History Household Members: Family Housing: Apartment Are you a primary health care marketing manager to a significant other at home: No Do you presently have visiting nurse or other home services: Yes (insurance company) Alcohol intake: never Patient Tobacco Use Status: Former Tobacco user e-Cigarette/Vaping Use: Never Used Second Hand Smoke Exposure: Yes Advance Directives Date on File: 05/23/20 service: No Current occupational status: retired Cognitive needs: Yes (cane) Hearing needs: No Vision needs: Yes (glasses) Questionnaire PHQ-9 Over the last 2 weeks, how often have you been bothered by any of the following problems? 1. Little interest or pleasure in doing things: not at all 2. Feeling down, depressed, or hopeless: not at all 3. Trouble falling or staying asleep, or sleeping too much: not at all 4. Feeling tired or having little energy: not at all 5. Poor appetite or overeating: not at all 6. Feeling bad about yourself - or that you are a failure or have let yourself or your family down: not at all 7. Trouble concentrating on things, such as reading the newspaper or watching television: not at all 8. Moving or speaking so slowly that other people could have noticed. Or the opposite - being so fidgety or restless that you have been moving around a lot more than usual: not at all 9. Thoughts that you would be better off or of hurting yourself in some way: not at all Total score: 0 Depression Screening Interpretation: Negative Depression Screening Done: Yes 92410 - PHQ-9 Billing: Yes Source: Developed by Drs. Carl Kelly, Alexia Bonilla, Israel Nayak and colleagues, with an educational yari from [employer]. Thrive Questionnaire Date Thrive assessed: 02/23/25 I am a: Patient What is your living situation today?: I have a steady place to live Within the past 12 months, did the food you bought not last and you didn't have the money to get more?: Never true Within the past 12 months, did you worry whether your food would run out before you got money to buy more?: Never true Do you have trouble paying for medicines?: No Do you have trouble getting transportation to medical appointments?: No Do you have trouble paying your heating and electricity bill?: No Do you have trouble taking care of your child, family member or friend?: No Do you have trouble with day-to-day activities such as bathing, preparing meals, shopping, managing finances, etc.?: No Are you currently unemployed and looking for a job?: No Are you interested in more education?: No Please select the resources that you would like help with: None Currently or been in a relationship where the following occur: No concerns reported THRIVE Score: 0 AUDIT C Alcohol Use Questionnaire (AUDIT-C) 1. How often do you have a drink containing alcohol?: Never 3. How often do you have six or more drinks on one occasion?: Never Total Score: 0 CARMELO-7 AMB Questionnaire CARMELO-7 Date CARMELO - 7 assessed: 02/23/25 Feeling nervous, anxious, or on edge: 0 = Not at all Not being able to stop or control worryin = Not at all Worrying too much about different things: 0 = Not at all Trouble relaxin = Not at all Being so restless that it is hard to sit still: 0 = Not at all Becoming easily annoyed or irritable: 0 = Not at all Feeling afraid as if something awful might happen: 0 = Not at all Total CARMELO-7 score (0-4 normal; 5-9 mild; 10-14 moderate; 15-21 severe): 0 Source: Developed by Drs. Carl Kelly, Alexia Bonilla, Israel Nayak and colleagues, with an educational yari from [employer]. CARMELO-7 Assessment Billing CARMELO-7 Assessment Tool: CARMELO-7 Assessment 39997 Physical exam (Primary Care) Vital Signs: Last Vital Signs Temp 97.1 F 02/23/25 09:40 Pulse 83 02/23/25 09:40 BP 110/56 L 02/23/25 09:40 Pulse Ox 96 02/23/25 09:40 Oxygen Delivery Method Room Air 02/23/25 09:40 BMI result Body Mass Index 17.0 Tobacco/Smoking Status: Tobacco use Status Tobacco use date assessed 11/24/24 02/23/25 09:47 Patient Tobacco Use Status Former Tobacco user 02/23/25 09:47 e-Cigarette/Vaping Use Never Used 02/23/25 09:47 PHQ-9: PHQ-9 Score PHQ-9: Total score 0 02/23/25 09:47 Depression Screening Interpretation: Negative Thrive Assessment: Date of Thrive Assessment Date Thrive assessed 02/23/25 02/23/25 09:47 Currently or been in a relationship where the following occur: No concerns reported Coding Level of Care Code Est Pt Level 3 (29953) Complex EM visit Add On G2211 Diagnoses Urinary incontinence R32 Right otitis externa H60.91 Additional Codes CARMELO-7 Assessment Billing - CARMELO-7 Assessment Tool: CARMELO-7 Assessment 84307 ([id number]) PHQ-9 - 34582 - PHQ-9 Billing: Yes ([id number]) Assessment & Plan Assessment & Plan (1) Urinary incontinence: Code(s): R32 - Unspecified urinary incontinence Category: Medical Plan: Increasing the oxybutynin dosage did not seem to help. She reduced the dosage back to once a day. (2) Right otitis externa: Code(s): H60.91 - Unspecified otitis externa, right ear Plan: Cortisporin added to the regimen. If sx not better to follow up here Plan History of Present Illness - The patient is an 89-year-old female presenting with ear discomfort. - Reports a sensation of discomfort in the right ear region, described as different from usual, with occasional mild jabbing pain. - Has not been taking oxybutynin as prescribed, citing no perceived benefit from the medication. - Mentioned a stomach issue but preferred to address it in a future visit. Social History Review of Systems - Genitourinary: Reports urinary discomfort, denies significant pain. Physical Exam General: Cooperative and healthy appearing Nutritional Appearance: Well nourished Orientation/consciousness: Patient oriented x3 Limitations: No limitations Head: Normal to inspection General: Appearance normal, both eyes and all related structures Neck: Normal visual inspection Chest: Normal palpation of entire chest wall Respiratory: Normal respiratory effort Neurology: Patient oriented x3 Ear: mild erythema in the right ear canal Results Plan 1. Otitis Externa - Prescribed ear drops to alleviate discomfort. - Follow-up scheduled in three months to reassess symptoms and treatment efficacy. 2. Stomach Issue - Patient opted to address this issue in a future visit. Discussion Notes I discussed with the patient the use of drops to alleviate her discomfort and scheduled a follow-up in three months to evaluate the treatment's effectiveness. We also acknowledged her stomach issue, which she preferred to address in a future visit. Patient Instructions - Use the prescribed drops as directed. - Return for a follow-up appointment in three months. - Plan to discuss the stomach issue at the next visit. Medications: New izcpsdvt-zdhjnf-LH-thonzonium 3.3-3-10-0.5 mg/mL (Cortisporin-TC) 4 drps otic (ear) right TID 10 mL 0RF
== END 2025-02-23 10:15 | disposition home or self-care (01) ==
LOC: HO.HMCH 09:14
PROVIDERS: PCP Internal Medicine; Visit Provider Internal Medicine
DX: R32 Unspecified urinary incontinence (principal); H60.91 Unspecified otitis externa, right ear

== ENCOUNTER → 2025-02-23 09:13 | Outpatient (BNVA) | payer MEDICARE, MEDICAID, SELFPAY | PROVIDERS: PCP Internal Medicine; Visit Provider Internal Medicine | DX: R32 Unspecified urinary incontinence (principal); H60.91 Unspecified otitis externa, right ear | CPT/HCPCS: 96127; 99212 ==

== ENCOUNTER 2025-06-08 10:49 | Outpatient (AMB) | payer MEDICARE, MEDICAID, SELFPAY ==
--- NOTE | 2025-06-08 11:19 | A.OFFPC_ITS ---
Vital Signs 06/08/25 11:20 Height 5 ft 8 in Weight 111 lb 12.39 oz BMI 17.0 BP 122/60 Blood Pressure Location Lt brachial Position Sitting Pulse 91 Pulse Source Pulse Oximeter Temp 97.3 F Temp Source Temporal Artery Scan Pulse Oximetry (%) 95 Oxygen Delivery Method Room Air Intake Visit Reasons: annual exam - see comments Intake Note: Patient is here today for a physical. 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 Allergies No Known Allergies Allergy (Verified 06/08/25 11:20) Tobacco use date assessed: 06/08/25 Fall risk assessment: No Falls in past year Last assessed Fall Risk: 06/08/25 Dental Screening Dental Screen Date: 11/24/24 [facility] Medical History Fecal incontinence Osteoarthritis of right shoulder Polycythemia vera Degenerative joint disease of cervical spine Urinary incontinence Constipation by delayed colonic transit Essential thrombocytosis Primary insomnia Surgical History History of colonoscopy (~06/01/17) S/P small bowel resection Family History Father No problems noted. Mother No problems noted. Son Addiction to drug Other No family history of cancer Social History Household Members: Family Housing: Apartment Are you a primary women's health care nurse practitioner to a significant other at home: No Do you presently have visiting nurse or other home services: Yes (insurance company) Alcohol intake: never Patient Tobacco Use Status: Former Tobacco user e-Cigarette/Vaping Use: Never Used Second Hand Smoke Exposure: Yes Advance Directives Date on File: 05/23/20 service: No Current occupational status: retired Cognitive needs: Yes (cane) Hearing needs: No Vision needs: Yes (glasses) Questionnaire Thrive Questionnaire Date Thrive assessed: 02/23/25 I am a: Patient What is your living situation today?: I have a steady place to live Within the past 12 months, did the food you bought not last and you didn't have the money to get more?: Never true Within the past 12 months, did you worry whether your food would run out before you got money to buy more?: Never true Do you have trouble paying for medicines?: No Do you have trouble getting transportation to medical appointments?: No Do you have trouble paying your heating and electricity bill?: No Do you have trouble taking care of your child, family member or friend?: No Do you have trouble with day-to-day activities such as bathing, preparing meals, shopping, managing finances, etc.?: No Are you currently unemployed and looking for a job?: No Are you interested in more education?: No Please select the resources that you would like help with: None Currently or been in a relationship where the following occur: No concerns reported THRIVE Score: 0 CARMELO-7 AMB Questionnaire CARMELO-7 Date CARMELO - 7 assessed: 02/23/25 Source: Developed by Drs. Carl Kelly, Alexia Bonilla, Israel Nayak and colleagues, with an educational yari from [employer]. Physical exam (Primary Care) Vital Signs: Last Vital Signs Temp 97.3 F 06/08/25 11:20 Pulse 91 06/08/25 11:20 BP 122/60 06/08/25 11:20 Pulse Ox 95 06/08/25 11:20 Oxygen Delivery Method Room Air 06/08/25 11:20 BMI result Body Mass Index 17.0 Tobacco/Smoking Status: Tobacco use Status Tobacco use date assessed 06/08/25 06/08/25 11:25 Patient Tobacco Use Status Former Tobacco user 06/08/25 11:19 e-Cigarette/Vaping Use Never Used 06/08/25 11:19 Thrive Assessment: Date of Thrive Assessment Date Thrive assessed 02/23/25 06/08/25 11:19 Currently or been in a relationship where the following occur: No concerns reported Coding Level of Care Code Est Pt Level 4 (64914) Complex EM visit Add On G2211 Diagnoses Diarrhea R19.7 Assessment & Plan Assessment & Plan (1) Diarrhea: Code(s): R19.7 - Diarrhea, unspecified Plan: History of Present Illness - The patient is an 89-year-old female presenting with persistent diarrhea. - The diarrhea has been ongoing for two weeks, characterized by loose stools that are not watery but consist of small pieces. - The patient reports associated symptoms of fatigue and a lack of energy, leading to a desire to lay down frequently. - She denies any blood in the stool. - The patient experiences abdominal discomfort, described as an uncomfortable pain in the lower back and pressure on the rectum. - She has been taking Imodium, which provides temporary relief for one to two days. - The patient has been experiencing these symptoms intermittently throughout the summer. Social History - The patient was accompanied to the visit by her grandson. Review of Systems - Gastrointestinal: Reports diarrhea for two weeks, denies blood in stool. - General: Reports fatigue and lack of energy. - Musculoskeletal: Reports lower back pain. - Rectal: Reports pressure on the rectum. Physical Exam General: Cooperative and healthy appearing Nutritional Appearance: Well nourished Orientation/consciousness: Patient oriented x3 Limitations: No limitations Head: Normal to inspection General: Appearance normal, both eyes and all related structures Neck: Normal visual inspection Chest: Normal palpation of entire chest wall Respiratory: Normal respiratory effort Neurology: Patient oriented x3 Results Plan - Blood tests will be conducted to investigate the cause of the diarrhea. - The patient will be provided with medication to help stop the diarrhea. - The patient is advised to maintain nutrition and hydration, with recommendations to consume Gatorade. - Follow-up will be conducted via phone call to discuss the results of the blood tests. Discussion Notes I discussed with the patient the plan to conduct blood tests to determine the cause of her diarrhea. I also explained the importance of maintaining hydration and nutrition, recommending Gatorade as a suitable option. We agreed on a follow-up call to discuss the test results. Patient Instructions - Take the prescribed medication to help stop diarrhea. - Maintain hydration and nutrition, consider drinking Gatorade. - Expect a follow-up call to discuss blood test results. Orders: Orders Basic Metabolic Panel 06/08/25 R19.7 - Diarrhea, unspecified Complete Blood Count no Diff 06/08/25 R19.7 - Diarrhea, unspecified Lipid Panel 06/08/25 R19.7 - Diarrhea, unspecified Erythrocyte Sedimentation Rate 06/08/25 R19.7 - Diarrhea, unspecified Liver Panel 06/08/25 R19.7 - Diarrhea, unspecified Thyroid Stimulating Hormone 06/08/25 R19.7 - Diarrhea, unspecified UA and rflx microscopic 06/08/25 R19.7 - Diarrhea, unspecified
[2025-06-08 11:20] VITALS: BP 122/60; PULSE 91; TEMP 36.3; O2SAT 95; BMI 17.0
== END 2025-06-08 13:38 | disposition home or self-care (01) ==
LOC: HO.HMCH 10:50
PROVIDERS: Visit Provider Internal Medicine
DX: R19.7 Diarrhea, unspecified (principal)

== ENCOUNTER 2025-06-08 10:49 | Outpatient (REF) | payer MEDICARE, MEDICAID, SELFPAY ==
[2025-06-08 12:24] LABS: Hematocrit 37.3 % (37.0-47.0); Hemoglobin 11.5 g/dl (12.0-16.0); Mean Corpuscular HGB Conc 30.8 g/dl (31.0-35.0); Mean Corpuscular Hemoglobin 26.4 pg (27.0-33.0); Mean Corpuscular Volume 85.7 fL (80.0-98.0); NRBC Abs Auto 0.180 X10*3/uL (0.0-0.012); Platelet Count 140 X10*3/uL (160-400); Red Blood Count 4.35 X10*6/uL (4.20-5.50); White Blood Count 16.2 X10*3/uL (4.8-10.8)
[2025-06-08 12:29] LABS: NRBC Pct Auto 1.1 /100WBC (0.0-0.2)
[2025-06-08 12:31] LABS: Appearance Urine Clear; Glucose Urine UA Negative (Negative); PH 5.5 (5.0-9.0); Specific Gravity - Urine 1.025 (1.005-1.025); UMIC TRIGGER UA YES
[2025-06-08 13:06] LABS: Alanine Aminotransferase 15 U/L (0-31); Albumin Level 4.2 g/dL (3.5-5.0); Alkaline Phosphatase 79 U/L (39-117); Anion Gap 10 (12-20); Aspartate Amino Transferase 32 U/L (5-31); Blood Urea Nitrogen 19 mg/dL (9-16); Calcium 8.8 mg/dL (8.4-10.2); Carbon Dioxide 28 mmol/L (22-29); Chloride 104 mmol/L (96-108); Cholesterol 141 mg/dL (<200); Estimated Glomerular Filt Rate > 60; HDL Cholesterol 29 mg/dL (>40); Potassium 4.2 mmol/L (3.3-5.1); Sodium 138 mmol/L (135-145); Total Protein 6.7 g/dL (6.5-8.0); Triglycerides 123 mg/dL (<150)
[2025-06-08 13:11] LABS: Erythrocyte Sedimentation Rate 16 MM/HR (0-20)
[2025-06-08 13:15] LABS: Thyroid Stimulating Hormone 4.18 uIU/mL (0.32-4.0)
== END 2025-06-08 10:50 | disposition home or self-care (01) ==
LOC: HO.LAB 10:49
PROVIDERS: PCP Internal Medicine; Visit Provider Internal Medicine
DX: R19.7 Diarrhea, unspecified (principal)
CPT/HCPCS: 36415; 80048; 80061; 80076; 81001; 84443; 85027; 85652; 99212

== ENCOUNTER 2025-06-18 07:14 | Observation (INO) | payer MEDICARE, MEDICAID, SELFPAY ==
[2025-06-18] VITALS (8 sets, daily range): BP systolic 105–148; BP diastolic 58–77; PULSE 73–92; RESP 16–20; TEMP 36.7–36.8; O2SAT 92–96; BMI 18.2
--- NOTE | ~2025-06-18 | US_ITS ---
CLINICAL HISTORY: ruq US abdomen limited Comparison: CT/REG/SR - CT ABDOMEN PELVIS W IV CON - 06/18/25 12:06 EST Findings: The visualized pancreas is normal. The aorta and inferior vena cava are normal caliber. The liver is normal in size. Hypoechoic right hepatic lobe focus measuring 17 mm, consistent with a hemangioma. There is no intrahepatic bile duct dilatation. The common duct is 5 mm in diameter. The gallbladder is normal. There is no sonographic Obrien sign. The main portal vein is antegrade. The right kidney is 11.1 cm in length. No ascites. IMPRESSION: 1. No acute process. 2. Right hepatic lobe hemangioma. This document has been electronically signed by: Kishore Bennett MD on 06/18/2025 16:03:45
--- NOTE | ~2025-06-18 | CT_ITS ---
CLINICAL HISTORY: diarrhea CT abdomen and pelvis with contrast Comparison: CT - CT ABDOMEN PELVIS W IV CON - 06/18/25 11:49 EST Findings: The lung bases are clear. Cardiomegaly. Small amount of pericholecystic fluid. Marked splenomegaly with associated left renal compression. Solid organs are otherwise within normal limits. Portosystemic collateral vessels are present, predominantly within the perisplenic location. Enlarged portal and splenic veins. No bowel obstruction, pneumoperitoneum, or pneumatosis. Appendix is not seen. Small amount of pelvic ascites. There is a small bowel containing left inguinal hernia measuring 32 mm which contains a thickened loop of small bowel with small amount of surrounding fluid. The bones are intact. Diffuse ill-defined sclerosis throughout the visualized skeleton. Moderate chronic wedging of L1. Mild chronic wedging of L3. IMPRESSION: 1. Pericholecystic fluid, which could indicate acute cholecystitis. This could be further assessed with ultrasound, if clinically indicated. 2. Portal hypertension, with associated splenomegaly and portosystemic collateral vessels. 3. Left inguinal small bowel containing hernia containing a thickened small bowel loop, suggestive of incarceration. 4. Severe diffuse osseous metastatic disease. 5. Severe splenomegaly with left renal compression. This document has been electronically signed by: Kishore Bennett MD on 06/18/2025 13:29:16
--- NOTE | 2025-06-18 08:06 | PC.NURSE ---
pt is alert and oriented, skin pwd, respirations even and unlabored, pt is coming in for what pt states chronic diarrhea that has been going on for a couple of weeks after eating, and also took a sip of pine sole by accident this morning, pine sole was in a Gatorade bottle and the pt thought she grabbed the Gatorade-took one sip and swallowed then started with the diarrhea and vomiting, is reporting mild abd pain that appears to be chronic pt cleaned up of very watery stool
[2025-06-18 08:10] LABS: Hematocrit 36.9 % (37.0-47.0); Hemoglobin 11.5 g/dl (12.0-16.0); Mean Corpuscular HGB Conc 31.2 g/dl (31.0-35.0); Mean Corpuscular Hemoglobin 27.1 pg (27.0-33.0); Mean Corpuscular Volume 86.8 fL (80.0-98.0); NRBC Abs Auto 0.110 X10*3/uL (0.0-0.012); NRBC Pct Auto 0.7 /100WBC (0.0-0.2); Platelet Count 124 X10*3/uL (160-400); Red Blood Count 4.25 X10*6/uL (4.20-5.50); White Blood Count 15.2 X10*3/uL (4.8-10.8)
--- OUTSIDE RECORDS SUMMARY | 2025-06-18 08:10 | XMS_ITS | Patient Health Record ---
Author Organization [facility] Address [address] [place] [address] Care Team Providers Care Driver/Sales Workers Name Role Phone CHARLOTTE RIVERA Primary Care Provider Carl White Unavailable [phone] Ed Durham Unavailable Unavailable Allergies No Known Allergies Reason For Referral No Information Medications Medication SIG (Take, Route, Fr equency, Duration) Notes Start Date End Date Status PARoxetine HCl 20 MG 1/2 tablet Orally O nce a day/prn Active Omeprazole 20 MG 1 PO QAM; Duration: 30 day(s) 02/2021 Active traZODone HCl 50 MG Oral; Duration: 90 Active Aspir-81 81 MG 1 tablet [...] Problem Status W/U Status Risk Notes Problem Acute pancreatitis (420563455) Acute pancreatitis, unspecified (K85.9) Active confirmed Problem Flatulence, eructation and gas pain (185182758) Abdominal distension (gaseous) (R14.0) Active confirmed Problem Anorexia (09018761) Anorexia (R63.0) Active confirmed Problem Microscopic colitis (736197397) Microscopic colitis (K52.89) Active confirmed Problem Constipation (02278123) Constipation, unspecified constipation type (K59.00) Active confirmed Problem Right upper quadrant pain (155872263) Right upper quadrant abdominal pain (R10.11) Active confirmed Problem Generalized abdominal pain (880769968) Abdominal pain, generalized (R10.84) Active confirmed Problem Irritable bowel syndrome (62903675) Other irritable bowel syndrome (K58.8) Active confirmed Problem Incontinence of feces (37202004) Incontinence of feces, unspecified fecal incontinence type (R15.9) Active confirmed Plan Of Treatment Pending Test Test Name Order Date NUC HIDA SCAN 05/15/2017 Future Test Test Name Order Date COLONOSCOPY 03/07/2014 UPPER GI ENDOSCOPY 05/15/2017 Insurance Providers Payer Name Payer Address Payer Phone Subscriber Number Group Number Insured Name Patient Relationship to Insured Coverage Start Date Coverage End Date [facility] [address] [address] [place] [address] [id number] CONI OBRIEN Self - patient is the insured MEDICAID OF [facility] [address] [place] [address] [id number] CONI OBRIEN Self - patient is the insured Medical (General) History Medical History History ICD Code Thrombocytosis--sees Dr. Durham Upper endoscopy 2008-- Gastritis-- bx ne g for H.pylori Anxiety Denies UT,DM,CVA,Lung disease,renal dise ase IBS with previous constipation [...] on admission were normal urinary incontinence EGD [id number] duodenal and g astric biopsies Neg CT in 2019 except for constipation-- no acute issues Surgical History Surgery Date(Month/Year) Cecal volvulus with right colectomy in [address] Banegas
[2025-06-18 08:22] LABS: Alanine Aminotransferase 13 U/L (0-31); Albumin Level 4.0 g/dL (3.5-5.0); Alkaline Phosphatase 83 U/L (39-117); Anion Gap 12 (12-20); Aspartate Amino Transferase 33 U/L (5-31); Blood Urea Nitrogen 18 mg/dL (9-16); Calcium 8.6 mg/dL (8.4-10.2); Carbon Dioxide 25 mmol/L (22-29); Chloride 101 mmol/L (96-108); Creatinine Clr Calc Pharmacy 63.4; Estimated Glomerular Filt Rate > 60; Lipase 22 U/L (8-78); Potassium 4.3 mmol/L (3.3-5.1); Sodium 134 mmol/L (135-145); Total Protein 6.6 g/dL (6.5-8.0)
[2025-06-18 08:40] LABS: Atypical Lymph Absolute Manual 0.3 x10*3/uL; Atypical Lymphs Percent Manual 2 % (0-6); Band Neutrophils Percent 9 % (3-5); Basophils Abs Manual 0.9 X10*3/uL (0.0-0.2); Basophils Percent Manual 6 % (0-2); Eosinophils Absolute Manual 0.5 X10*3/uL (0.0-0.4); Eosinophils Percent Manual 3 % (0-4); Lymphocytes Absolute Manual 0.9 X10*3/uL (1.2-4.9); Lymphocytes Percent Manual 6 % (20-40); Metamyelocytes Absolute 0.3 X10*3/uL; Metamyelocytes Percent 2 %; Monocytes Absolute Manual 0.2 X10*3/uL (0.1-1.2); Monocytes Percent Manual 1 % (2-11); Myelocytes Absolute 0.3 X10*/uL; Myelocytes Percent 2 %; Neutrophils Absolute Manual 11.9 X10*3/uL (2.0-8.3); Neutrophils Percent Manual 69 % (45-73)
[2025-06-18 08:41] LABS: Microcytosis 1+ (5-14) /OIF; RBC Morphology NOTED
[2025-06-18 08:42] LABS: Ovalocytes 1+ (5-14) /OIF; Tear Drop Cells 2+ (3-5) /OIF
[2025-06-18 08:43] LABS: Polychromasia 1+ (0-2) /OIF
[2025-06-18 11:04] LABS: CDiff Gene PCR NEGATIVE (Negative)
--- NOTE | 2025-06-18 11:36 | ED.NAVMDI ---
HPI - Nausea/Vomiting/Diarrhea General Chief complaint: Nausea/Vomiting/Diarrhea Stated complaint: VOMITING S/P ACC DRINKING PINESOL PER EMS Time Seen by Provider: 06/18/25 07:37 History of Present Illness HPI Narrative: Patient is an 89-year-old female with diarrhea. Diarrhea has been ongoing for months. Patient has noticed yellowish diarrhea along with chunks of stool. There is no fever no chills. There is mild pain in the left side today. Had previous history of abdominal surgery. Unsure what kind of surgery. There is no fever no chills. There has been no travel. There is no recent antibiotics. In addition patient unfortunately took a sip of pinesol by accident this morning. There was no SI no HI. Patient is from home. Diarrhea is 1-2 episodes a day for the last few months. Been seen by primary physician in the past. Related Data Previous Rx's ?Medication ?Instructions ?Recorded acetaminophen 500 mg tablet 500 mg PO Q6H PRN fever or pain 04/08/22 (Tylenol Extra Strength) #14 tabs rolling walker with seat #1 ea 02/16/24 hand rails for bathroom #2 ea 08/18/24 lift recliner #1 ea 08/18/24 oxybutynin chloride 5 mg tablet 5 mg PO BID for bladder muscle 08/22/24 dysfunction #180 tabs Ensure #1 ea 11/24/24 lythgrnl-vwghve-CB-thonzonm 3.3 4 drp otic (ear) right TID #10 mL 02/23/25 mg-3 mg-10 mg-0.5 mg/mL ear drops,susp (Cortisporin-TC) paroxetine HCl 20 mg tablet 20 mg PO DAILY #90 tabs 05/24/25 trazodone 50 mg tablet 50 mg PO BEDTIME #90 tabs 05/24/25 ciprofloxacin HCl 250 mg tablet 250 mg PO BID 7 days #14 tabs 06/09/25 Allergies Allergy/AdvReac Type Severity Reaction Status Date / Time No Known Allergies Allergy Verified 06/18/25 07:45 Review of Systems Review of Systems: Positive Yes all other systems are reviewed and are negative PMFSH Past Medical History Attestation statement: The following information was validated with the patient. Medical History Fecal incontinence Osteoarthritis of right shoulder Polycythemia vera Degenerative joint disease of cervical spine Urinary incontinence Constipation by delayed colonic transit Essential thrombocytosis Primary insomnia Surgical History History of colonoscopy (~06/01/17) S/P small bowel resection Family History Family History Father No problems noted. Mother No problems noted. Son Addiction to drug Other No family history of cancer Social History Social History Household Members: Family Housing: Apartment Are you a primary neonatal intensive care unit nurse to a significant other at home: No Do you presently have visiting nurse or other home services: Yes ([employer]) Alcohol intake: never Patient Tobacco Use Status: Former Tobacco user Smoked in Last 30 Days: No e-Cigarette/Vaping Use: Never Used Second Hand Smoke Exposure: Yes Use of substances other than those prescribed or required for medical reasons: No Advance Directives: Yes Advance Directives on File: Yes Advance Directives Date on File: 05/23/20 Do you have a plan to hurt others: No Plan service: No Current occupational status: retired Cognitive needs: Yes (cane) Hearing needs: No Vision needs: Yes (glasses) Physical Exam Exam: Exam: Appearance: Alert. Oriented X3. No acute distress. Eyes: Pupils equal, round and reactive to light. ENT: Pharynx normal. Neck: Normal inspection. Neck supple. No lymph nodes noted. No crepitus CVS: Normal heart rate and rhythm. Pulses normal. Normal S1 and S2 Respiratory: No respiratory distress. Breath sounds normal. No Wheezing. No rales Abdomen: Soft and nontender. No rigidity. No distention. good BS x4 Skin: Skin warm and dry. Normal skin color. Normal skin turgor. Extremities: No lower extremity edema. Neurovascular intact to all extremities. No Lacerations. No Rash Neuro: Oriented X 3. No motor deficit. No sensory deficit. Moving all extermities. No slurred speech Vital Signs: Vital Signs: Last Vital Signs Temp 98.1 F 06/18/25 07:41 Pulse 83 06/18/25 12:16 Resp 18 06/18/25 12:16 BP 124/64 06/18/25 12:16 Pulse Ox 93 06/18/25 12:16 O2 Del Method Room Air 06/18/25 12:16 BMI result Body Mass Index 18.2 Medications Administered Discontinued Medications Generic Name Dose Route Start Last Admin Trade Name Keithq PRN Reason Stop Dose Admin Sodium Chloride 1,000 mls @ 999 mls/hr 06/18/25 11:45 06/18/25 12:55 Ns IV 06/18/25 12:45 Infused .Q1H1M KAREEM Infusion Ceftriaxone Sodium 1 gm/ 50 mls @ 100 mls/hr 06/18/25 11:36 06/18/25 12:55 Sodium Chloride IV 06/18/25 12:05 Infused ONCE ONE Infusion Iohexol 100 ml 06/18/25 12:08 06/18/25 12:08 Iohexol 350 Mg/Ml 100 Ml Infus..Btl IV 06/18/25 12:09 85 ml ONCE ONE Administration Medical Decision Making Medical Decision Making MDM Narrative: Patient had an elevated white count. There is a significant left shift. There is bandemia. Lactate was obtained there were negative. IV fluids given antibiotic was nevertheless given. CT scan of the abdomen was done for the nausea and the diarrhea. It showed multitude of issues including a question cholecystitis although patient has normal LFT. Has no abdominal pain in the right upper quadrant. It showed a question small bowel herniation fit patient has a normal lactate. Had surgery evaluate the patient. They agreed the patient should get an ultrasound but does not feel the patient is a surgical candidate. Patient's C diff and GI panel is all negative. Patient's blood pressure is normal. CT scan also showed question osteolytic lesion question with the primary is coming from. On repeat questioning patient has decrease in weight. Case consulted the hospitalist team for admission and further evaluation. Currently in stable condition. Differential Diagnosis Differential Diagnoses: The differential diagnosis associated with the presentation includes Diarrhea, C diff, colitis, hernia, obstruction Admission/Observation Consideration of admission/observation: Escalation of care including admission/observation considered Consult Healthcare Provider Management of the patient was discussed with: Hospitalist and Wrapper Rewinder (Surgery) Lab Data MDM Lab Attestation statement: I reviewed the patient's lab results. 06/18/25 08:00 06/18/25 08:00 Labs: Lab Results 06/18/25 06/18/25 06/18/25 Range/Units 08:00 09:14 11:59 WBC 15.2 H (4.8-10.8) X10*3/uL RBC 4.25 (4.20-5.50) X10*6/uL Hgb 11.5 L (12.0-16.0) g/dl Hct 36.9 L (37.0-47.0) % MCV 86.8 (80.0-98.0) fL MCH 27.1 (27.0-33.0) pg MCHC 31.2 (31.0-35.0) g/dl RDW 18.8 H (11.0-16.0) % Plt Count 124 L (160-400) X10*3/uL MPV 9.2 L (9.4-12.3) fL Immature Gran % (Auto) Cancelled Neut % (Auto) Cancelled Lymph % (Auto) Cancelled Clay % (Auto) Cancelled Eos % (Auto) Cancelled Baso % (Auto) Cancelled Lymph # (Auto) Cancelled Clay # (Auto) Cancelled Eos # (Auto) Cancelled Baso # (Auto) Cancelled Abs Immat Gran (auto) Cancelled Absolute Neuts (auto) Cancelled Absolute Nucleated RBC 0.110 H (0.0-0.012) X10*3/uL Nucleated RBC % (auto) 0.7 H (0.0-0.2) /100WBC Neutrophils % (Manual) 69 (45-73) % Band Neutrophils % 9 H (3-5) % Lymphocytes % (Manual) 6 L (20-40) % Atypical Lymphs % (Man) 2 (0-6) % Monocytes % (Manual) 1 L (2-11) % Eosinophils % (Manual) 3 (0-4) % Basophils % (Manual) 6 H (0-2) % Metamyelocytes % 2 % Myelocytes % 2 % Abs Neuts (Manual) 11.9 H (2.0-8.3) X10*3/uL Lymphocytes # (Manual) 0.9 L (1.2-4.9) X10*3/uL Atyp Lymphs # (Manual) 0.3 x10*3/uL Monocytes # (Manual) 0.2 (0.1-1.2) X10*3/uL Eosinophils # (Manual) 0.5 H (0.0-0.4) X10*3/uL Basophils # (Manual) 0.9 H (0.0-0.2) X10*3/uL Metamyelocytes # 0.3 X10*3/uL Myelocytes # 0.3 X10*/uL Platelet Estimate SLIGHTLY DECREASED (NORMAL) Plt Morphology Comment NORMAL RBC Morphology NOTED Polychromasia 1+ (0-2) /OIF Microcytosis 1+ (5-14) /OIF Tear Drop Cells 2+ (3-5) /OIF Ovalocytes 1+ (5-14) /OIF Sodium 134 L (135-145) mmol/L Potassium 4.3 (3.3-5.1) mmol/L Chloride 101 (96-108) mmol/L Carbon Dioxide 25 (22-29) mmol/L Anion Gap 12 (12-20) BUN 18 H (9-16) mg/dL Creatinine 0.51 (0.5-1.4) mg/dL Estim Creat Clear Calc 63.4 Estimated GFR > 60 Random Glucose 117 H (60-115) mg/dL Lactic Acid 0.7 (0.5-2.0) mmol/L Calcium 8.6 (8.4-10.2) mg/dL Total Bilirubin 0.9 (0.0-1.0) mg/dL Direct Bilirubin 0.3 (0.0-0.5) mg/dL AST 33 H (5-31) U/L ALT 13 (0-31) U/L Alkaline Phosphatase 83 (39-117) U/L Total Protein 6.6 (6.5-8.0) g/dL Albumin 4.0 (3.5-5.0) g/dL Lipase 22 (8-78) U/L Stl C. cayetanensis PCR Not Detected (Not Detect.) Stool Rotavirus A PCR Not Detected (Not Detect.) Stl Adenov F 40/41 PCR Not Detected (Not Detect.) Stool Astrovirus (PCR) Not Detected (Not Detect.) Stool Campylobacter PCR Not Detected (Not Detect.) Stool Cryptosporidium PCR Not Detected (Not Detect.) Stl Sh Tox Pr E STEC PCR Not Detected (Not Detect.) Stool E coli O157 PCR Not applicable (Not Detect.) Stl Enterotoxigenic E PCR Not Detected (Not Detect.) Stool EPEC (PCR) Not Detected (Not Detect.) Stool EAEC (PCR) Not Detected (Not Detect.) Stl E. histolytica PCR Not Detected (Not Detect.) Stool Giardia Lamblia PCR Not Detected (Not Detect.) Stl P. shigelloides PCR Not Detected (Not Detect.) Stool Salmonella PCR Not Detected (Not Detect.) Stool Sapovirus (PCR) Not Detected (Not Detect.) Stl Shigella/EIEC PCR Not Detected (Not Detect.) St Y.enterocolitica PCR Not Detected (Not Detect.) Stool Vibrio (PCR) Not Detected (Not Detect.) Stl Vibrio cholerae PCR Not Detected (Not Detect.) Stl Norovirus GI/GII PCR Not Detected (Not Detect.) C. difficile Tox B Gene NEGATIVE (Negative) Independent Interpretation I performed an independent interpretation of an: CT Scan (No overt obstruction) Radiology Impression Discussion of test interpretation with radiology: I have reviewed the radiologist's reading. External Record Review External record reviewed: Office record Social Determinants Patient?s care significantly limited by Social Determinants of Health including: Problems related to primary support group Discharge Plan Discharge Clinical Impression: Diarrhea Patient Disposition: Admitted As Inpatient Print Language: Polish
[2025-06-18 11:54] LABS: E. coli EAEC Not Detected (Not Detect.); E. coli EPEC Not Detected (Not Detect.); E. coli ETEC Not Detected (Not Detect.); E. coli STEC Not Detected (Not Detect.); Shigella sp./EIEC Not Detected (Not Detect.)
[2025-06-18] MEDS: iohexoL 350 MG/ML 100 ML INFUS..BTL IV (12:08)
--- NOTE | 2025-06-18 14:10 | PM.CNGS ---
History of Present Illness Consult details Consult date: 06/18/25 Narrative: 89 year old female with history of osteoarthritis, essential thrombocytosis, here in the ER after drinking [place] at home. She apparently missed took a bottle of Pine[place] for Gatorade early this morning and swallowed a mouth full of this. She immediately realized this. She then started to have some small episodes of vomiting after that so she was brought to the ER immediately Currently denies any significant abdominal pain. She says she is back to her baseline. She some chronic diarrhea. She denies any pain on her back or her chest. She denies any abdominal pain She says she has known she has a hernia in the left groin for a while. She has had no further episodes of vomiting since around 09:00 this morning. 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 Mother No problems noted. Son Addiction to drug Other No family history of cancer Surgical History Surgical History History of colonoscopy (~06/01/17) S/P small bowel resection Social History Social History Household Members: Family Housing: House Are you a primary critical care registered nurse to a significant other at home: No Do you presently have visiting nurse or other home services: No Alcohol intake: never Patient Tobacco Use Status: Former Tobacco user e-Cigarette/Vaping Use: Never Used Second Hand Smoke Exposure: No Advance Directives Date on File: 05/23/20 service: No Current occupational status: retired Cognitive needs: Yes (cane) Hearing needs: No Vision needs: Yes (glasses) Meds Allergies Allergy/AdvReac Type Severity Reaction Status Date / Time No Known Allergies Allergy Verified 06/18/25 07:45 Home Medications ?Medication ?Instructions ?Recorded ?Confirmed ?Last Taken ?Type paroxetine HCl 20 mg tablet 20 mg PO BEDTIME 06/18/25 06/20/25 Unknown History trazodone 50 mg tablet 25 mg PO BEDTIME 06/18/25 06/20/25 Unknown History Physical Exam Vital Signs: Vital Signs: Last Vital Signs Temp 98.1 F 06/18/25 07:41 Pulse 83 06/18/25 12:16 Resp 18 06/18/25 12:16 BP 124/64 06/18/25 12:16 Pulse Ox 93 06/18/25 12:16 O2 Del Method Room Air 06/18/25 12:16 BMI result Body Mass Index 18.2 Const: Other: Appears comfortable, alert General: no acute distress Resp: Effort & Inspection: normal respiratory effort Cardio: Rate: regular rate GI: Other: Has a reducible left groin hernia, no Obrien's sign Palpation (GI): Soft to palpation, not firm, nontender and no guarding Results Labs 06/19/25 03:33 06/19/25 03:33 Labs: Abnormal lab results 06/18/25 Range/Units 08:00 WBC 15.2 H (4.8-10.8) X10*3/uL Hgb 11.5 L (12.0-16.0) g/dl Hct 36.9 L (37.0-47.0) % RDW 18.8 H (11.0-16.0) % Plt Count 124 L (160-400) X10*3/uL MPV 9.2 L (9.4-12.3) fL Absolute Nucleated RBC 0.110 H (0.0-0.012) X10*3/uL Nucleated RBC % (auto) 0.7 H (0.0-0.2) /100WBC Band Neutrophils % 9 H (3-5) % Lymphocytes % (Manual) 6 L (20-40) % Monocytes % (Manual) 1 L (2-11) % Basophils % (Manual) 6 H (0-2) % Abs Neuts (Manual) 11.9 H (2.0-8.3) X10*3/uL Lymphocytes # (Manual) 0.9 L (1.2-4.9) X10*3/uL Eosinophils # (Manual) 0.5 H (0.0-0.4) X10*3/uL Basophils # (Manual) 0.9 H (0.0-0.2) X10*3/uL Sodium 134 L (135-145) mmol/L BUN 18 H (9-16) mg/dL Random Glucose 117 H (60-115) mg/dL AST 33 H (5-31) U/L Short CBC 06/18/25 Range/Units 08:00 WBC 15.2 H (4.8-10.8) X10*3/uL Hgb 11.5 L (12.0-16.0) g/dl Hct 36.9 L (37.0-47.0) % Plt Count 124 L (160-400) X10*3/uL BMP 06/18/25 08:00 Sodium 134 L Potassium 4.3 Chloride 101 Carbon Dioxide 25 BUN 18 H Creatinine 0.51 Calcium 8.6 Liver Function 06/18/25 Range/Units 08:00 Total Bilirubin 0.9 (0.0-1.0) mg/dL Direct Bilirubin 0.3 (0.0-0.5) mg/dL AST 33 H (5-31) U/L ALT 13 (0-31) U/L Alkaline Phosphatase 83 (39-117) U/L Albumin 4.0 (3.5-5.0) g/dL All other labs normal. IMPRESSION: 1. Pericholecystic fluid, which could indicate acute cholecystitis. This could be further assessed with ultrasound, if clinically indicated. 2. Portal hypertension, with associated splenomegaly and portosystemic collateral vessels. 3. Left inguinal small bowel containing hernia containing a thickened small bowel loop, suggestive of incarceration. 4. Severe diffuse osseous metastatic disease. 5. Severe splenomegaly with left renal compression. Imaging Abdomen CT scan report/results: report reviewed and image reviewed CT scan - pelvis: report reviewed and image reviewed Assessment and Plan (1) Ingestion of toxic substance: Status: Acute Plan She ingested a small amounts of salt earlier and had vomiting. I have reviewed her CAT scan. There is incidental finding of splenomegaly, portal hypertension, and a left groin hernia with bowel loop. The left groin area was reducible There is also mention of a question of cholecystitis but she does not have any Obrien's sign or any tenderness in the area She looks comfortable at this time. She does not require any surgical intervention but I would recommend observing here because of the ingestion of [place] which contains isopropyl alcohol. Her abdominal exam is very benign. She has massive splenomegaly. She also has evidence of portal hypertension with collaterals. Her LFTs however are normal. She denies any history of alcohol abuse. Procedures Date of Service Date of Service: 06/20/25
--- NOTE | 2025-06-18 14:30 | PHA.MEDREC ---
Pharmacy Consult ? Medication Reconciliation Pharmacy has completed the medication reconciliation. Patient confirmed she is only taking paxil 20 mg at bedtime as well as 25 mg of trazodone. she confirmed she cuts her 50 mg tablet of trazodone in half. She takes both medications at night. confirmed no OTCs
--- NOTE | 2025-06-18 20:29 | P.HPHOSP_ITS ---
History of Present Illness Date of Service: 06/18/25 Attending physician on admission: Cj Conte Chief Complaint: Accidental ingestion of [place] Cholo Raygoza is 89 years old woman with a past medical history significant for polycythemia vera and essential thrombocytosis presents to the emergency department after accidentally ingested (a sip) [place] detergent thinking it was her Gatorade. She vomited after this. She does complain of chronic diarrhea mostly after ingestion of food. She has been taking Imodium for this with good results. She currently denied any symptoms such as headache, dizziness, chest pain, heartburn, abdominal pain or nausea. It is unclear to me of the poison control was contacted. In the ED, she was found to have normal vital signs. Blood workup was remarkable leukocytosis of 15.2, hemoglobin is 11.5, platelets 124, bandemia of 9 % and basophilia. Differential also showed eosinophilia. They are tear drops, ovalocytes and macrocytosis. There is mild hyponatremia. Other electrolytes are normal. Anion gap is normal. BUN 18 and creatinine 0.51. UA showed proteinuria 1+, trace ketones and trace leukocyte esterase. WBC and RBC are normal. There is no bacteria. GI panel and C diff are negative. Abdominal pelvis CT scan showed pericolic fluid which could indicate acute cholecystitis, portal hypertension, splenectomy and poor systemic collateral vessels. There is a left inguinal small bowel containing hernia continue thickened small bowel loop suggestive of incarceration, severe disc space osseous metastatic disease and severe splenomegaly with left renal compression. Abdominal ultrasound showed no acute process and right hepatic lobe hemangioma. ED Tx: NS 1 L bolus, ceftriaxone 1 g IV Review of Systems 2 Review of Systems: All 12 systems were reviewed and normal except as noted in HPI. [facility] Medical History (Updated 06/18/25 @ 22:16 by Cj Conte MD) Ingestion of toxic substance Fecal incontinence Osteoarthritis of right shoulder Polycythemia vera Degenerative joint disease of cervical spine Urinary incontinence Constipation by delayed colonic transit Essential thrombocytosis Primary insomnia Family History Father No problems noted. Mother No problems noted. Son Addiction to drug Other No family history of cancer Surgical History History of colonoscopy (~06/01/17) S/P small bowel resection Social History Household Members: Family Housing: Apartment Are you a primary career placement specialist to a significant other at home: No Do you presently have visiting nurse or other home services: Yes (insurance [employer]) Alcohol intake: never Patient Tobacco Use Status: Former Tobacco user Smoked in Last 30 Days: No e-Cigarette/Vaping Use: Never Used Second Hand Smoke Exposure: Yes Use of substances other than those prescribed or required for medical reasons: No Advance Directives: Yes Advance Directives on File: Yes Advance Directives Date on File: 05/23/20 Do you have a plan to hurt others: No Plan service: No Current occupational status: retired Cognitive needs: Yes (cane) Hearing needs: No Vision needs: Yes (glasses) Meds Allergies Allergy/AdvReac Type Severity Reaction Status Date / Time No Known Allergies Allergy Verified 06/18/25 07:45 Active Medications: Current Medications Acetaminophen (Acetaminophen 325 Mg Tablet) 975 mg PO Q6H PRN PRN Reason: Pain, Mild 1-3,fever,headache Calcium Carbonate (Calcium Carbonate 750 Mg Tab.Chew) 750 mg PO Q4H PRN PRN Reason: Heartburn Heparin Sodium (Porcine) (Heparin Sodium,Porcine 5,000 Unit/Ml Vial) 5,000 unit SUBCUT Q12H [facility] Loperamide HCl (Loperamide Hcl 2 Mg Capsule) 4 mg PO Q6H PRN PRN Reason: Diarrhea Magnesium Hydroxide (Milk Of Magnesia 30 Ml Oral.Susp) 30 ml PO DAILY PRN PRN Reason: Constipation Melatonin (Melatonin 3 Mg Tablet) 6 mg PO BEDTIME PRN PRN Reason: Insomnia Ondansetron HCl (Ondansetron Hcl 4 Mg/2 Ml Vial) 4 mg IVPUSH Q8H PRN PRN Reason: Nausea and Vomiting Sodium Chloride (0.9 % Sodium Chloride Flush 3 Ml Syringe) 3 ml IVFLUSH QSHIST. [facility] Home Medications ?Medication ?Instructions ?Recorded ?Confirmed ?Last Taken ?Type paroxetine HCl 20 mg tablet 20 mg PO BEDTIME 06/18/25 06/18/25 Unknown History trazodone 50 mg tablet 25 mg PO BEDTIME 06/18/25 Unknown History Physical Exam 2 Vital Signs and Narrative: Vital Signs: Last Vital Signs Temp 98.3 F 06/18/25 18:53 Pulse 81 06/18/25 18:53 Resp 18 06/18/25 18:53 BP 122/62 06/18/25 18:53 Pulse Ox 93 06/18/25 18:53 O2 Del Method Room Air 06/18/25 18:53 BMI result Body Mass Index 18.2 General: Alert, oriented, in no acute distress. Cooperative. Cachectic. Afebrile. HEENT: Head normocephalic, atraumatic. PER, EOMI. Sclerae anicteric, conjunctiva clear. Oropharynx without erythema or exudate. Mucous membranes moist. Neck: Supple, no lymphadenopathy, or JVD. Heart: RRR, no murmurs, rubs or gallops. Lungs: Clear to auscultation bilaterally. No wheezes, rales, or rhonchi. Normal respiratory effort. Abdomen: Soft, non tenderness, nondistended, normoactive bowel sounds. No hepatosplenomegaly, masses or masses. Extremities: No calf tenderness bilaterally, no swelling Musculoskeletal: Full range of motion. No joint swelling, deformity, or tenderness. Normal muscle tone and strength. Skin: Warm/Dry. No pallor. No jaundice. Neurologic: Alert & oriented x4. Moving all extremities spontaneously. Normal speech. Psychological: Normal mood and affect. Thought process coherent. Results Labs 06/18/25 08:00 06/18/25 08:00 Labs: Laboratory Results - last 24 hr 06/18/25 06/18/25 06/18/25 08:00 09:14 11:59 MCV 86.8 MCH 27.1 MCHC 31.2 RDW 18.8 H Plt Count 124 L MPV 9.2 L Immature Gran % (Auto) Cancelled Neut % (Auto) Cancelled Lymph % (Auto) Cancelled [place] % (Auto) Cancelled Eos % (Auto) Cancelled Baso % (Auto) Cancelled Lymph # (Auto) Cancelled [place] # (Auto) Cancelled Eos # (Auto) Cancelled Baso # (Auto) Cancelled Abs Immat Gran (auto) Cancelled Absolute Neuts (auto) Cancelled Absolute Nucleated RBC 0.110 H Nucleated RBC % (auto) 0.7 H Neutrophils % (Manual) 69 Band Neutrophils % 9 H Lymphocytes % (Manual) 6 L Atypical Lymphs % (Man) 2 Monocytes % (Manual) 1 L Eosinophils % (Manual) 3 Basophils % (Manual) 6 H Metamyelocytes % 2 Myelocytes % 2 Abs Neuts (Manual) 11.9 H Lymphocytes # (Manual) 0.9 L Atyp Lymphs # (Manual) 0.3 Monocytes # (Manual) 0.2 Eosinophils # (Manual) 0.5 H Basophils # (Manual) 0.9 H Metamyelocytes # 0.3 Myelocytes # 0.3 Platelet Estimate SLIGHTLY DECREASED Plt Morphology Comment NORMAL RBC Morphology NOTED Polychromasia 1+ (0-2) Microcytosis 1+ (5-14) Tear Drop Cells 2+ (3-5) Ovalocytes 1+ (5-14) Anion Gap 12 Estim Creat Clear Calc 63.4 Estimated GFR > 60 Random Glucose 117 H Lactic Acid 0.7 Calcium 8.6 Total Bilirubin 0.9 Direct Bilirubin 0.3 AST 33 H ALT 13 Alkaline Phosphatase 83 Total Protein 6.6 Albumin 4.0 Lipase 22 Stl C. cayetanensis PCR Not Detected Stool Rotavirus A PCR Not Detected Stl Adenov F 40/41 PCR Not Detected Stool Astrovirus (PCR) Not Detected Stool Campylobacter PCR Not Detected Stool Cryptosporidium PCR Not Detected Stl Sh Tox Pr E STEC PCR Not Detected Stool E coli O157 PCR Not applicable Stl Enterotoxigenic E PCR Not Detected Stool EPEC (PCR) Not Detected Stool EAEC (PCR) Not Detected Stl E. histolytica PCR Not Detected Stool Giardia Lamblia PCR Not Detected Stl P. shigelloides PCR Not Detected Stool Salmonella PCR Not Detected Stool Sapovirus (PCR) Not Detected Stl Shigella/EIEC PCR Not Detected St Y.enterocolitica PCR Not Detected Stool Vibrio (PCR) Not Detected Stl Vibrio cholerae PCR Not Detected Stl Norovirus GI/GII PCR Not Detected C. difficile Tox B Gene NEGATIVE Assessment and Plan (1) Accidental ingestion of caustic alkali: Qualifiers: Encounter type: initial encounter Qualified Code(s): T54.3X1A - Toxic effect of corrosive alkalis and alkali-like substances, accidental (unintentional), initial encounter Status: Acute (2) Diarrhea: Qualifiers: Diarrhea type: unspecified type Qualified Code(s): R19.7 - Diarrhea, unspecified Status: Acute Plan Cholo Raygoza is 89 years old woman who presents after: Accidental ingestion if [place] (orange-colored one). Poison control contacted and recommended GI consult. Insomnia and mood disorder. Continue paroxetine and trazodone. Chronic diarrhea, leukocytosis, severe splenomegaly, Miles, acanthosis, schistocytes. Likely myeloproliferative disease. I recommend to continue F/U with PCP and consider heme-onc followup as an outpation. Code status: Full DVT prophylaxis: Heparin Quality Stroke Does the patient have a stroke diagnosis?: No VTE Prior VTE?: No VTE Risk Level:: Medical - moderate - high VTE Device Contraindication: Treatment Not Indicated VTE Drug Contraindication: N/A - Med Ordered
[2025-06-18] MEDS: traZODone HCL 25 MG HALFTAB PO (21:03)
--- NOTE | 2025-06-18 21:55 | MHC.EDTECH ---
Pt incontinent of large amount of urine. Complete bedding change done and purewick placed. RN aware.
--- NOTE | 2025-06-18 22:50 | PC.NURSE ---
Nurse to nurse report given to JIA Daly. Pt going to overflow. Marcia from poison control called requesting an update. Update provided.
[2025-06-19] VITALS: RESP 18
[2025-06-19] MEDS: 0.9 % Sodium Chloride Flush 3 ML SYRINGE IVFLUSH ×2 (00:25→10:28)
[2025-06-19 03:39] VITALS: BP 102/49; PULSE 79; RESP 14; TEMP 36.6; O2SAT 93
[2025-06-19 03:53] LABS: Hematocrit 32.2 % (37.0-47.0); Hemoglobin 10.0 g/dl (12.0-16.0); Mean Corpuscular HGB Conc 31.1 g/dl (31.0-35.0); Mean Corpuscular Hemoglobin 26.6 pg (27.0-33.0); Mean Corpuscular Volume 85.6 fL (80.0-98.0); NRBC Abs Auto 0.130 X10*3/uL (0.0-0.012); NRBC Pct Auto 1.0 /100WBC (0.0-0.2); Platelet Count 139 X10*3/uL (160-400); Red Blood Count 3.76 X10*6/uL (4.20-5.50); White Blood Count 12.5 X10*3/uL (4.8-10.8)
[2025-06-19 04:13] LABS: Alanine Aminotransferase 10 U/L (0-31); Albumin Level 3.4 g/dL (3.5-5.0); Alkaline Phosphatase 68 U/L (39-117); Anion Gap 10 (12-20); Aspartate Amino Transferase 30 U/L (5-31); Band Neutrophils Percent 7 % (3-5); Basophils Abs Manual 0.5 X10*3/uL (0.0-0.2); Basophils Percent Manual 4 % (0-2); Blood Urea Nitrogen 16 mg/dL (9-16); Calcium 8.1 mg/dL (8.4-10.2); Carbon Dioxide 26 mmol/L (22-29); Chloride 104 mmol/L (96-108); Creatinine Clr Calc Pharmacy 66.0; Eosinophils Absolute Manual 0.1 X10*3/uL (0.0-0.4); Eosinophils Percent Manual 1 % (0-4); Estimated Glomerular Filt Rate > 60; Lymphocytes Absolute Manual 1.1 X10*3/uL (1.2-4.9); Lymphocytes Percent Manual 9 % (20-40); Magnesium 1.9 mg/dL (1.6-2.6); Metamyelocytes Absolute 0.4 X10*3/uL; Metamyelocytes Percent 3 %; Monocytes Absolute Manual 0.3 X10*3/uL (0.1-1.2); Monocytes Percent Manual 2 % (2-11); Myelocytes Absolute 0.1 X10*/uL; Myelocytes Percent 1 %; Neutrophils Absolute Manual 10.0 X10*3/uL (2.0-8.3); Neutrophils Percent Manual 73 % (45-73); Potassium 4.2 mmol/L (3.3-5.1); Sodium 136 mmol/L (135-145); Total Protein 5.7 g/dL (6.5-8.0)
[2025-06-19 04:15] LABS: Large Platelet PRESENT; Microcytosis 1+ (5-14) /OIF; Ovalocytes 1+ (5-14) /OIF; RBC Morphology NOTED; Schistocytes 1+ (0-2) /OIF
[2025-06-19 04:16] LABS: Basophilic Stippling 1+ (0-2) /OIF; Hypersegmented Neutrophils PRESENT; Polychromasia 2+ (3-5) /OIF; Tear Drop Cells 3+ (>5) /OIF; Toxic Vacuolation PRESENT
[2025-06-19 05:33] LABS: Ethyl Alcohol g/dL (%) NONE DETECTED g/dL(%) (NONE DETECTED); Ethyl Alcohol mg/dL NONE DETECTED (NONE DETECTED)
[2025-06-19 08:00] VITALS: BP 100/58; PULSE 89; RESP 16; TEMP 36.6; O2SAT 90
--- NOTE | 2025-06-19 08:00 | PC.NURSE ---
Patient was able to walk this morning to bathroom.
[2025-06-19 11:49] VITALS: BP 117/57; PULSE 85; RESP 16; TEMP 36.6; O2SAT 92
[2025-06-19 14:15] VITALS: BMI 18.2
--- NOTE | 2025-06-19 14:23 | MHC.CLN ---
NUTRITION REGULAR DIET. PATIENT REPORTS WEIGHT LOSS OF 10# X APPROX ONE MONTH. LIKES ENSURE SUPPLEMENT. ADDING ENSURE TID TO PROMOTE NUTRITIONAL INTAKE. SUPPLEMENT PROVIDES 1050 KCALS, 60 G PROTEIN. QUALIFIES MODERATELY MALNOURISHED IN THE CONTEXT OF ACUTE ILLNESS. FOLLOW FOR PO INTAKE. SEE CLINICAL NUTRITION ASSESSMENT 06/19/25.
--- NOTE | 2025-06-19 15:24 | PM.PNGS ---
Subjective Subjective Date of Service: 06/19/25 Interval history: no events overnight Feels well today Nausea or vomiting No abdominal pain Only complaint is diarrhea Physical Exam Vital Signs: Vital Signs: Last Vital Signs Temp 98 F 06/19/25 11:49 Pulse 85 06/19/25 11:49 Resp 16 06/19/25 11:49 BP 117/57 L 06/19/25 11:49 Pulse Ox 92 06/19/25 11:49 O2 Del Method Room Air 06/19/25 11:49 BMI result Body Mass Index 18.2 Const: General: comfortable and no acute distress Resp: Effort & Inspection: normal respiratory effort Cardio: Rate: regular rate GI: Other: Reducible inguinal hernia left, nontender Palpation (GI): Soft to palpation, not firm, nontender and no guarding Objective Data Active Medications Acetaminophen (Acetaminophen 325 Mg Tablet) 975 mg PO Q6H PRN PRN Reason: Pain, Mild 1-3,fever,headache Calcium Carbonate (Calcium Carbonate 750 Mg Tab.Chew) 750 mg PO Q4H PRN PRN Reason: Heartburn Heparin Sodium (Porcine) (Heparin Sodium,Porcine 5,000 Unit/Ml Vial) 5,000 unit SUBCUT Q12H [facility] Last Admin: 06/19/25 10:27 Dose: 5,000 unit Documented By: GEETA Loperamide HCl (Loperamide Hcl 2 Mg Capsule) 4 mg PO Q6H PRN PRN Reason: Diarrhea Magnesium Hydroxide (Milk Of Magnesia 30 Ml Oral.Susp) 30 ml PO DAILY PRN PRN Reason: Constipation Melatonin (Melatonin 3 Mg Tablet) 6 mg PO BEDTIME PRN PRN Reason: Insomnia Ondansetron HCl (Ondansetron Hcl 4 Mg/2 Ml Vial) 4 mg IVPUSH Q8H PRN PRN Reason: Nausea and Vomiting Sodium Chloride (0.9 % Sodium Chloride Flush 3 Ml Syringe) 3 ml IVFLUSH QSHIFT [facility] Last Admin: 06/19/25 10:28 Dose: 3 ml Documented By: GEETA Labs 06/19/25 03:33 06/19/25 03:33 Labs: Laboratory Results - last 24 hr 06/18/25 06/19/25 22:18 03:33 MCV 85.6 MCH 26.6 L MCHC 31.1 RDW 18.6 H Plt Count 139 L MPV 10.8 Immature Gran % (Auto) Cancelled Neut % (Auto) Cancelled Lymph % (Auto) Cancelled [place] % (Auto) Cancelled Eos % (Auto) Cancelled Baso % (Auto) Cancelled Lymph # (Auto) Cancelled [place] # (Auto) Cancelled Eos # (Auto) Cancelled Baso # (Auto) Cancelled Abs Immat Gran (auto) Cancelled Absolute Neuts (auto) Cancelled Absolute Nucleated RBC 0.130 H Nucleated RBC % (auto) 1.0 H Neutrophils % (Manual) 73 Band Neutrophils % 7 H Lymphocytes % (Manual) 9 L Monocytes % (Manual) 2 Eosinophils % (Manual) 1 Basophils % (Manual) 4 H Metamyelocytes % 3 Myelocytes % 1 Abs Neuts (Manual) 10.0 H Lymphocytes # (Manual) 1.1 L Monocytes # (Manual) 0.3 Eosinophils # (Manual) 0.1 Basophils # (Manual) 0.5 H Metamyelocytes # 0.4 Myelocytes # 0.1 Nucleated RBCs 1 H Hypersegmented Neuts PRESENT Toxic Vacuolation PRESENT Platelet Estimate SLIGHTLY DECREASED Large Platelets PRESENT Giant Platelets PRESENT Plt Morphology Comment NOTED RBC Morphology NOTED Polychromasia 2+ (3-5) Basophilic Stippling 1+ (0-2) Microcytosis 1+ (5-14) Tear Drop Cells 3+ (>5) Ovalocytes 1+ (5-14) Schistocytes 1+ (0-2) Anion Gap 10 L Estim Creat Clear Calc 66.0 Estimated GFR > 60 Random Glucose 79 Calcium 8.1 L Magnesium 1.9 Total Bilirubin 0.8 AST 30 ALT 10 Alkaline Phosphatase 68 Total Protein 5.7 L Albumin 3.4 L Ethylene Glycol NONE DETECTED Volat Analys Perform On WHOLE BLOOD Ethyl Alcohol mg/dL NONE DETECTED Ethyl Alcohol g/dL NONE DETECTED Methyl Alcohol Level NONE DETECTED Isopropyl Alc, Quant NONE DETECTED Acetone Level NONE DETECTED Microbiology Microbiology Results: Microbiology 06/18/25 12:00 Blood Culture - Preliminary Blood - Venous No growth after 24 hours. 06/18/25 11:58 Blood Culture - Preliminary Blood - Venous No growth after 24 hours. Procedures Date of Service Date of Service: 06/19/25 Progress Note: A&P Assessment and plan (1) Ingestion of toxic substance: Status: Acute Assessment and Plan: She had accidentally ingested small amounts of [place] yesterday Does not appear to have any mucosal injury Swallowing okay On clear liquids Abdomen is soft and benign, nontender Her main complaint is diarrhea which is actually chronic She knows Dr. Chun - waiting for consult Looks well and stable Care as per primary service Time Spent With Patient Time: Total time managing care of this patient today ____ minutes. Quality Stroke Does the patient have a stroke diagnosis?: No VTE Prior VTE?: No VTE Risk Level:: Medical - moderate - high VTE Device Contraindication: Treatment Not Indicated VTE Drug Contraindication: N/A - Med Ordered
[2025-06-19 16:00] VITALS: BP 124/61; PULSE 90; RESP 19; TEMP 36.8; O2SAT 92
--- NOTE | 2025-06-19 16:03 | MHC.CM.PN ---
GIL delivered. Patient lives at home w/ son, grandson. Independent w/ care. Uses walker when in the community. HCP on file and verified. PCP Jostin Sanders MD DP: Medically cleared for dc home self care. Family at bedside to transport.
--- NOTE | 2025-06-19 16:19 | PM.DS ---
DS: Providers Provider Date of Service: 06/19/25 Date of admission: 06/18/25 19:59 Date of discharge: 06/19/25 Primary care physician: Jostin Sanders MD Consults: 06/18/25 22:13 Consult to Gastroenterology Routine Consulting Provider: Carl Chun Reason for consultation: Accidental ingestion of [place], chronic diarrhea, abdominal bloating Has provider been notified: No DS: Diagnosis Discharge Diagnosis (1) Ingestion of toxic substance: Status: Acute DS: Summary Hospital Course Hospital Course: From admission HPI: Date of Service: 06/18/25 Attending physician on admission: Cj Conte Chief Complaint: Accidental ingestion of [place] Cholo Raygoza is 89 years old woman with a past medical history significant for polycythemia vera and essential thrombocytosis presents to the emergency department after accidentally ingested (a sip) [place] detergent thinking it was her Gatorade. She vomited after this. She does complain of chronic diarrhea mostly after ingestion of food. She has been taking Imodium for this with good results. She currently denied any symptoms such as headache, dizziness, chest pain, heartburn, abdominal pain or nausea. It is unclear to me of the poison control was contacted. In the ED, she was found to have normal vital signs. Blood workup was remarkable leukocytosis of 15.2, hemoglobin is 11.5, platelets 124, bandemia of 9 % and basophilia. Differential also showed eosinophilia. They are tear drops, ovalocytes and macrocytosis. There is mild hyponatremia. Other electrolytes are normal. Anion gap is normal. BUN 18 and creatinine 0.51. UA showed proteinuria 1+, trace ketones and trace leukocyte esterase. WBC and RBC are normal. There is no bacteria. GI panel and C diff are negative. Abdominal pelvis CT scan showed pericolic fluid which could indicate acute cholecystitis, portal hypertension, splenectomy and poor systemic collateral vessels. There is a left inguinal small bowel containing hernia continue thickened small bowel loop suggestive of incarceration, severe disc space osseous metastatic disease and severe splenomegaly with left renal compression. Abdominal ultrasound showed no acute process and right hepatic lobe hemangioma. ED Tx: NS 1 L bolus, ceftriaxone 1 g IV Hosptial course Pt was admitted to the hospital after accidental ingestion of [place] cleaning agent at home. Poison control was contacted who suggested overnight observation and GI consult. Patient's hospital stay was unremarkable and she did not have any repeat episodes of nausea or vomiting. Pt has been experiencing chronic diarrhea for many years, worse in the past 1-2 months. Had episode of diarrhea this morning, but was able to tolerate a full lunch without diarrhea. Gi was consulted who did not think that there was any acute intervention necessary as pt was clinically doing well. Suggestion was to follow up outpatient for chronic GI issues, including diarrhea and abdominal bloating. Pt is strongly recommended to start with a bland diet and then modify as tolerated. Abdominal imaging also showed possible cholecystitis, though pt had benign abdominal exam and was negative for Obrien sign. Abdominal ultrasound negative. Was seen and evaluated by General surgery who did not think there was any acute intervention necessary at this time. Additional workup, including splenomegaly, schistocytes, chronic leukocytosis, and CT showing severe diffuse osseous metastatic disease concerning for possible myeloproliferative disease. Pt follows with Dr. Durham for polycythemia vera and already has an appointment next week; pt should follow up then for any additional outpatient workup. Pt should resume all other home medications. Time Attestation Discharge Coordination Time (in mins): 35 Quality: Safe Use of Opioids Does Pt have an Active Cancer Diagnosis on the Problem List?: No Quality: Stroke Does the patient have a stroke diagnosis?: No Physical Exam Exam: Exam: General: AOx3, no acute distress. Frail, elderly Resp: CTA bilaterally CVS: S1, S2, RRR GI: +BS, NT, mild distension, soft. Skin: Warm, dry Neuro: Cranial nerves II-XII grossly intact bilaterally. Motor grossly intact bilaterally Extremities: No edema Psych: Appropriate affect Vital Signs: Vital Signs: Last Vital Signs Temp 98.3 F 06/19/25 16:00 Pulse 90 06/19/25 16:00 Resp 19 06/19/25 16:00 BP 124/61 06/19/25 16:00 Pulse Ox 92 06/19/25 16:00 O2 Del Method Room Air 06/19/25 16:00 BMI result Body Mass Index 18.2 DS: Data Data Completed and Pending Labs on day of discharge: Laboratory Results - last 24 hr 06/18/25 06/19/25 22:18 03:33 WBC 12.5 H RBC 3.76 L Hgb 10.0 L Hct 32.2 L MCV 85.6 MCH 26.6 L MCHC 31.1 RDW 18.6 H Plt Count 139 L MPV 10.8 Immature Gran % (Auto) Cancelled Neut % (Auto) Cancelled Lymph % (Auto) Cancelled [place] % (Auto) Cancelled Eos % (Auto) Cancelled Baso % (Auto) Cancelled Lymph # (Auto) Cancelled [place] # (Auto) Cancelled Eos # (Auto) Cancelled Baso # (Auto) Cancelled Abs Immat Gran (auto) Cancelled Absolute Neuts (auto) Cancelled Absolute Nucleated RBC 0.130 H Nucleated RBC % (auto) 1.0 H Neutrophils % (Manual) 73 Band Neutrophils % 7 H Lymphocytes % (Manual) 9 L Monocytes % (Manual) 2 Eosinophils % (Manual) 1 Basophils % (Manual) 4 H Metamyelocytes % 3 Myelocytes % 1 Abs Neuts (Manual) 10.0 H Lymphocytes # (Manual) 1.1 L Monocytes # (Manual) 0.3 Eosinophils # (Manual) 0.1 Basophils # (Manual) 0.5 H Metamyelocytes # 0.4 Myelocytes # 0.1 Nucleated RBCs 1 H Hypersegmented Neuts PRESENT Toxic Vacuolation PRESENT Platelet Estimate SLIGHTLY DECREASED Large Platelets PRESENT Giant Platelets PRESENT Plt Morphology Comment NOTED RBC Morphology NOTED Polychromasia 2+ (3-5) Basophilic Stippling 1+ (0-2) Microcytosis 1+ (5-14) Tear Drop Cells 3+ (>5) Ovalocytes 1+ (5-14) Schistocytes 1+ (0-2) Sodium 136 Potassium 4.2 Chloride 104 Carbon Dioxide 26 Anion Gap 10 L BUN 16 Creatinine 0.49 L Estim Creat Clear Calc 66.0 Estimated GFR > 60 Random Glucose 79 Calcium 8.1 L Magnesium 1.9 Total Bilirubin 0.8 AST 30 ALT 10 Alkaline Phosphatase 68 Total Protein 5.7 L Albumin 3.4 L Ethylene Glycol NONE DETECTED Volat Analys Perform On WHOLE BLOOD Ethyl Alcohol mg/dL NONE DETECTED Ethyl Alcohol g/dL NONE DETECTED Methyl Alcohol Level NONE DETECTED Isopropyl Alc, Quant NONE DETECTED Acetone Level NONE DETECTED Preliminary micro results at discharge 06/18/25 12:00 Blood Culture - Preliminary Blood - Venous No growth after 24 hours. 06/18/25 11:58 Blood Culture - Preliminary Blood - Venous No growth after 24 hours. Discharge Plan Discharge Anticipated Discharge Date/Time: 06/19/25 16:04 Patient Disposition: Home, Self-Care Referrals: Ed Durham MD [Physician, Hematology & Oncology] - 1 Week Referral Note: F/U for ?Myeloproliferative disease Jostin Sanders MD [Primary Care Provider, Internal Medicine] - 1 Week Carl Chun MD [Physician, Gastroenterology] - 1 Week Referral Note: F/U for chronic diarrhea and abd bloating. ?IBS Discharge Medications: Continued (DME) rolling walker with seat See Rx Instructions .Route .MEDSUPPLY Qty: 1 0RF Rx Instructions: As directed (DME) hand rails for bathroom See Rx Instructions .Route .MEDSUPPLY Qty: 2 0RF Rx Instructions: As directed (DME) lift recliner See Rx Instructions .Route .MEDSUPPLY Qty: 1 0RF Rx Instructions: As directed trazodone 50 mg tablet 25 mg PO BEDTIME paroxetine HCl 20 mg tablet 20 mg PO BEDTIME (DME) Ensure See Rx Instructions .Route .MEDSUPPLY Qty: 1 0RF Rx Instructions: As directed 1 can twice daily Discharge Orders: Discharge Order (Routine); Ordered 06/19/25 Ordered By: Henry Goncalves Activity on Discharge: As tolerated Stand Alone Forms: Patient Portal Discharge page Print Language: Georgian Care Plan Goals: See below Health Concerns: Accidental ingestion of toxic substance Diarrhea Abdominal bloating IBS Myeloproliferative disease Plan of Treatment: You were admitted to the hospital after accidental ingestion of [place]. Poison control was contacted who suggested overnight observation and GI consult. Overall your hospital stay was uncomplicated, and you able to tolerate a full solid diet. Gi was consulted who did not feel there was any acute intervention necessary as you were clinically doing well. Suggesting is to follow up with GI for your chronic diarrhea and abdominal bloating. Abdominal imaging was initially concerning for possible infected gallbladder, though you were seen by General surgery and had a benign abdominal exam. There was no indication of additional workup for possible cholecystitis. Will also had an incidental finding on abdominal imaging showed splenomegaly, which is likely secondary to polycythemia vera and has been shown on previous imaging. Imaging was also suggestive of severe diffuse osseous disease, possibly metastatic. Blood work also suggestive of possible myeloproliferative disease -- follow up with Dr. Chun in GI for chronic diarrhea and abdominal bloating -- you are encouraged to start on a bland diet for now to see if diarrhea resolves. Advance diet as tolerated -- follow up with Dr. Durham as previously scheduled for follow up to discuss question of osseous metastatic disease and question of myeloproliferative disease -- resume all of your other home medications Assessment: See discharge summary
== END 2025-06-19 16:38 | disposition home or self-care (01) ==
LOC: HO.ED 14:14 → HO.EDOVER 20:05 → HO.S3 06-19 07:26
PROVIDERS: Admitting Provider Internal Medicine; Emergency Provider Emergency Medicine Emergency Medical Services; PCP Internal Medicine; Visit Provider Student in an Organized Health Care Education/Training Program
DX: T65.891A Toxic effect of other specified substances, accidental (unintentional), initial encounter (principal); K52.1 Toxic gastroenteritis and colitis; Y92.9 Unspecified place or not applicable; R19.7 Diarrhea, unspecified; R14.0 Abdominal distension (gaseous); I10 Essential (primary) hypertension; R16.1 Splenomegaly, not elsewhere classified; K76.6 Portal hypertension; R10.11 Right upper quadrant pain; D45 Polycythemia vera; D75.839 Thrombocytosis, unspecified; D72.829 Elevated white blood cell count, unspecified; G47.00 Insomnia, unspecified; F39 Unspecified mood [affective] disorder; Z79.899 Other long term (current) drug therapy; Z03.818 Encounter for observation for suspected exposure to other biological agents ruled out
CPT/HCPCS: 36415; 74177; 76705; 80048; 80053; 80076; 80320; 82693; 83605; 83690; 83735; 85007; 85027; 87040; 87493; 87507; 96365; 96372; 99221; 99285; J0696; J1644; Q9967

== ENCOUNTER → 2025-06-18 11:31 | Outpatient (BNV) | payer MEDICARE, MEDICAID, SELFPAY | PROVIDERS: Emergency Provider Emergency Medicine Emergency Medical Services; PCP Internal Medicine; Visit Provider Radiology Diagnostic Radiology | DX: K76.6 Portal hypertension (principal); R16.1 Splenomegaly, not elsewhere classified; K40.90 Unilateral inguinal hernia, without obstruction or gangrene, not specified as recurrent; C79.51 Secondary malignant neoplasm of bone; I87.1 Compression of vein; D18.03 Hemangioma of intra-abdominal structures | CPT/HCPCS: 74177; 76705 ==

== ENCOUNTER → 2025-06-18 19:59 | Outpatient (BNV) | payer MEDICARE, MEDICAID, SELFPAY | PROVIDERS: Admitting Provider Internal Medicine; Emergency Provider Emergency Medicine Emergency Medical Services; PCP Internal Medicine; Visit Provider Surgery | DX: R11.2 Nausea with vomiting, unspecified (principal); R19.7 Diarrhea, unspecified; T65.91XA Toxic effect of unspecified substance, accidental (unintentional), initial encounter | CPT/HCPCS: 99222; 99232 ==

== ENCOUNTER → 2025-06-18 19:59 | Outpatient (BNV) | payer MEDICARE, MEDICAID, SELFPAY | PROVIDERS: Admitting Provider Internal Medicine; Emergency Provider Emergency Medicine Emergency Medical Services; PCP Internal Medicine; Visit Provider Internal Medicine | DX: T54.3X1A Toxic effect of corrosive alkalis and alkali-like substances, accidental (unintentional), initial encounter (principal); R19.7 Diarrhea, unspecified | CPT/HCPCS: 99222; 99239 ==

== ENCOUNTER 2025-06-23 08:09 | Outpatient (AMB) | payer MEDICARE, MEDICAID, SELFPAY ==
--- NOTE | 2025-06-23 08:20 | MHC.PC.OV ---
Vital Signs 06/23/25 08:22 Height 5 ft 7 in Weight 111 lb 4 oz BMI 17.4 BP 120/70 Blood Pressure Location Lt brachial Position Sitting Pulse 85 Pulse Source Pulse Oximeter Temp 97.1 F Temp Source Temporal Artery Scan Pulse Oximetry (%) 93 Oxygen Delivery Method Room Air Intake Visit Reasons: INGESTION OF DETERGENT. Intake Note: Patient is here for hospital discharge and TCM follow up. [place] [facility] [place]. 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[employer] Waterworks: Present Accompanied by: Daughter Allergies No Known Allergies Allergy (Verified 06/23/25 08:21) Medication List - Last Reconciled 06/23/25 by Melisa Welch NP [Ensure As directed 1 can twice daily ] [hand rails for bathroom As directed] [lift recliner As directed] paroxetine HCl 20 mg PO BEDTIME [rolling walker with seat As directed] trazodone 25 mg PO BEDTIME Tobacco use date assessed: 06/23/25 Fall risk assessment: No Falls in past year Last assessed Fall Risk: 06/23/25 Dental Screening Dental Screen Date: 11/24/24 [facility] TCM TCM Information Date of Discharge 06/19/25 Discharged From [facility] Interactive Contact Date (Reference documentation from this date) 06/20/25 HPI Comments History of Present Illness Details 89 y/o Female patient presents to the clinic today for HDF. Past medical history is significant for IBS with chronic diarrhea/constipation, polycythemia vera, and essential thrombocytosis. She was admitted [place] [facility] [place] to 06/19 for evaluation after accidentally ingesting a small amount (sip) of [place] detergent, mistaking it for Gatorade. Poison Control was contacted and recommended overnight observation and a GI consult. The patient reports chronic diarrhea for many years, with worsening symptoms over the past 1?2 months. Abdominal imaging revealed possible cholecystitis, though the patient had a benign abdominal exam and was negative for Obrien?s sign. Abdominal ultrasound was negative. She was evaluated by General Surgery, who found no indication for acute intervention at that time. Further inpatient workup revealed splenomegaly, schistocytes, chronic leukocytosis, and CT findings of severe diffuse osseous metastatic disease, concerning for possible myeloproliferative process. She follows with Dr. Durham for management of polycythemia vera and has a follow-up appointment scheduled next week. She is also scheduled with GI on 07/11. Patient asking for GI referral. [facility] Medical History (Updated 06/18/25 @ 22:16 by Cj Conte MD) Ingestion of toxic substance Fecal incontinence Osteoarthritis of right shoulder Polycythemia vera Degenerative joint disease of cervical spine Urinary incontinence Constipation by delayed colonic transit Essential thrombocytosis Primary insomnia Surgical History History of colonoscopy (~06/01/17) S/P small bowel resection Family History Father No problems noted. Mother No problems noted. Son Addiction to drug Other No family history of cancer Social History Household Members: Family Housing: House Are you a primary nurse wound care to a significant other at home: No Do you presently have visiting nurse or other home services: No Alcohol intake: never Patient Tobacco Use Status: Former Tobacco user e-Cigarette/Vaping Use: Never Used Second Hand Smoke Exposure: Yes Advance Directives Date on File: 05/23/20 service: No Current occupational status: retired Cognitive needs: Yes (cane) Hearing needs: No Vision needs: Yes (glasses) Questionnaire Thrive Questionnaire Date Thrive assessed: 02/23/25 I am a: Patient What is your living situation today?: I have a steady place to live Within the past 12 months, did the food you bought not last and you didn't have the money to get more?: Never true Within the past 12 months, did you worry whether your food would run out before you got money to buy more?: Never true Do you have trouble paying for medicines?: No Do you have trouble getting transportation to medical appointments?: No Do you have trouble paying your heating and electricity bill?: No Do you have trouble taking care of your child, family member or friend?: No Do you have trouble with day-to-day activities such as bathing, preparing meals, shopping, managing finances, etc.?: No Are you currently unemployed and looking for a job?: No Are you interested in more education?: No Please select the resources that you would like help with: None Currently or been in a relationship where the following occur: No concerns reported THRIVE Score: 0 CARMELO-7 AMB Questionnaire CARMELO-7 Date CARMELO - 7 assessed: 02/23/25 Source: Developed by Drs. Carl Kelly, Alexia Bonilla, Israel Nayak and colleagues, with an educational yari from [employer]. Review of Systems Const All systems reviewed & are unremarkable except as noted in HPI and below Physical exam (Primary Care) Vital Signs: Last Vital Signs Temp 97.1 F 06/23/25 08:22 Pulse 85 06/23/25 08:22 BP 120/70 06/23/25 08:22 Pulse Ox 93 06/23/25 08:22 Oxygen Delivery Method Room Air 06/23/25 08:22 BMI result Body Mass Index 17.4 Tobacco/Smoking Status: Tobacco use Status Tobacco use date assessed 06/23/25 06/23/25 08:28 Patient Tobacco Use Status Former Tobacco user 06/23/25 08:28 e-Cigarette/Vaping Use Never Used 06/23/25 08:28 Thrive Assessment: Date of Thrive Assessment Date Thrive assessed 02/23/25 06/23/25 08:28 Currently or been in a relationship where the following occur: No concerns reported Const General: no acute distress Nutritional Appearance: thin Orientation/consciousness: patient oriented x3 Resp Effort & Inspection: normal respiratory effort Cardio Heart sounds: S1 normal heart sound present and S2 normal heart sound present GI Inspection: Yes distended Palpation (GI): Soft to palpation, not firm, Tenderness to palpation present (GI), no guarding, not rigid and Hepatosplenomegaly present Rectal Exam - Female: deferred Neuro General: patient oriented x3, gait normal and moves all extremities Psych Speech and movement: Normal speech and movement present Coding Level of Care Code Est Pt Level 4 (64881) Diagnoses Accidental ingestion of caustic alkali, initial encounter T54.3X1A Encounter type: initial encounter Diarrhea, unspecified type R19.7 Diarrhea type: unspecified type Time Spent (min) 20 Assessment & Plan Assessment & Plan (1) Accidental ingestion of caustic alkali: Code(s): T54.3X1A - Toxic effect of corrosive alkalis and alkali-like substances, accidental (unintentional), initial encounter Category: Medical Qualifiers: Encounter type: initial encounter Qualified Code(s): T54.3X1A - Toxic effect of corrosive alkalis and alkali-like substances, accidental (unintentional), initial encounter Plan: Recent [place] Ingestion (accidental): Resolved, no ongoing GI distress or evidence of mucosal injury. No further intervention indicated at this time. (2) Diarrhea: Code(s): R19.7 - Diarrhea, unspecified Category: Medical Qualifiers: Diarrhea type: unspecified type Qualified Code(s): R19.7 - Diarrhea, unspecified Plan: Chronic Diarrhea / IBS: Ongoing symptoms, slightly worsened in recent months. Continue dietary modifications and hydration. Follow-up with GI as scheduled on 07/11/25. Plan Continue close follow-up with Hematology (Dr. Durham) as scheduled next week. Orders: Referrals Gastroenterology Referral K59.01 - Slow transit constipation, R15.9 - Full incontinence of feces, R19.7 - Diarrhea, unspecified
[2025-06-23 08:22] VITALS: BP 120/70; PULSE 85; TEMP 36.2; O2SAT 93; BMI 17.4
== END 2025-06-23 09:09 | disposition home or self-care (01) ==
LOC: HO.HMCH 08:09
PROVIDERS: PCP Internal Medicine; Visit Provider Nurse Practitioner Family
DX: T54.3X1A Toxic effect of corrosive alkalis and alkali-like substances, accidental (unintentional), initial encounter (principal); R19.7 Diarrhea, unspecified

== ENCOUNTER → 2025-06-23 08:09 | Outpatient (BNVA) | payer MEDICARE, MEDICAID, SELFPAY | PROVIDERS: PCP Internal Medicine; Visit Provider Nurse Practitioner Family | DX: T54.3X1A Toxic effect of corrosive alkalis and alkali-like substances, accidental (unintentional), initial encounter (principal); R19.7 Diarrhea, unspecified | CPT/HCPCS: 99212 ==